=== PATIENT | male | born 1980 | race Caucasian/White ===

== ENCOUNTER → 2025-02-15 | Outpatient (CLI) | payer BC, SELFPAY ==
[2025-02-20 11:08] LABS: Beef <0.10 kU/L (Class 0); Chocolate <0.10 kU/L (Class 0); Codfish <0.10 kU/L (Class 0); Corn 0.22 kU/L (Class 0/I); Egg, Whole <0.10 kU/L (Class 0); Milk (Cow) 0.39 kU/L (Class I); Mussels <0.10 kU/L (Class 0); Peanut 0.57 kU/L (Class II); Pork <0.10 kU/L (Class 0); Salmon <0.10 kU/L (Class 0); Shrimp <0.10 kU/L (Class 0); Soybean <0.10 kU/L (Class 0); Tuna <0.10 kU/L (Class 0)
== END | disposition home or self-care (01) ==
LOC: LAB 14:10
PROVIDERS: PCP Family Medicine; Referring Provider Student in an Organized Health Care Education/Training Program; Visit Provider Student in an Organized Health Care Education/Training Program
DX: K20.0 Eosinophilic esophagitis (principal)
CPT/HCPCS: 86003; 86005

== ENCOUNTER 2025-04-11 10:09 | Day surgery (SDC) | payer BC, SELFPAY ==
[2025-04-11] VITALS (7 sets, daily range): BP systolic 100–126; BP diastolic 72–81; PULSE 68–88; RESP 16–18; TEMP 36.4–36.6; O2SAT 93–97; BMI 24.4
--- NOTE | 2025-04-11 10:33 | PCM.HP.STD ---
[facility] - General General Date of Admission: 04/11/25 Date of Service: 04/11/25 Chief Complaint: Eosinophilic esophagitis HPI Narrative FLAKO LENZ, is a 44 M who presents Chief Complaint: EOE Pt was diagnosed with EOE in his 20s and since then has had issues with swallowing. He will have to take a drink of water after each bit of food. He has episodes of needing to regurgitate his food. Last episode of regurgitation was 3 weeks ago and happened three times during that week. He notices worse symptoms when eating or drinking dairy. he is not not on a PPI due to n/v when he tried taking it. He has had good results with budesonide inhaler as needed. Last EGD was about 6 years ago. [facility] Medical History Alcohol use Difficulty swallowing Difficulty chewing Non-smoker Home Medications Medication Instructions Recorded Last Taken Type NK 04/08/25 Unknown History Allergy/AdvReac Type Severity Reaction Status Date / Time corn Allergy Severe OTHER Verified 04/11/25 10:27 Milk Containing Products Allergy Severe OTHER Verified 04/11/25 10:27 (Dairy) peanut (peanuts) Allergy Severe OTHER Verified 04/11/25 10:27 wheat Allergy Severe Other Verified 04/11/25 10:27 Sulfa (Sulfonamide Allergy Other Verified 04/11/25 10:27 Antibiotics) Surgical History History of esophagogastroduodenoscopy (EGD) History of myringotomy Hx of amputation of foot Hx of appendectomy Social History Smoking Status: Never smoker ROS Constitutional Constitutional: Denies fatigue, fever(s), poor appetite, weight gain or weight loss Gastrointestinal Gastrointestinal: Denies belching, bloating, change in bowel habits, change in stool character, chewing difficulty, coffee ground emesis, constipation, cramping, diarrhea, dyspepsia, dysphagia, early satiety, excessive flatus, fecal incontinence, heartburn, hematemesis, hematochezia, hemorrhoids, loose stools, melena, nausea, odynophagia, rectal bleeding, tenesmus, vomiting or weight changes Vital Signs Vital Signs Vital Signs: 04/11/25 10:28 04/11/25 10:28 Temperature 97.5 F L Temperature Source Temporal Pulse Rate 68 Respiratory Rate 16 Respiratory Pattern Normal Blood Pressure 126/81 H Blood Pressure Mean 96 Blood Pressure Source Monitor Blood Pressure Position Semi-Fowlers Blood Pressure Location Left Arm Pulse Ox 97 Oxygen Delivery Method Room Air Weight Weight: 175 lb Body Mass Index (BMI) 24.4 Physical Exam Const alert, oriented x3, no apparent distress and healthy appearing General Appearance: cooperative GI normal to inspection, nondistended, normoactive bowel sounds, soft to palpation, non-tender and non-distended Percussion: normal to percussion Rectal Exam: deferred Assessment & Plan Assessment/Plan (1) Eosinophilic esophagitis: PLAN: Assessment and Plan Assessment and Plan (1) Eosinophilic esophagitis: Status: Acute Plan: Flako is a 44 yo male pt here today for evaluation of EOE. Pt diagnosed with EOE in his 20s and most recently underwent EGD 6 years ago. Pt has been having worsening symptoms over the past few months with more instances of regurgitation. I have recommended starting a PPI however Nexium made him vomit so he would prefer to not take these. Pt also not wanting to go on Dupixent at this time. He has had good results with budesonide inhaler. Will prescribe Budesonide oral suspension. Will order RAST food allergy testing so he may avoid any allergens. He will undergo EGD for evaluation of his upper GI tract. -EGD -Food allergy testing -Recommend PPI -Budesonide oral suspension -Consider Dupixent pending results
[2025-04-11] MEDS: Lactated Ringers 1,000 ML 15 ML IV (10:37)
--- NOTE | 2025-04-11 10:56 | PCM.PRE.AN2 ---
ASA Classification* ASA Classification ASA Classification: 2 Assessment & Plan Anesthesia* Anesthesia Assessment Anesthesia Assessment: Discussed sedation and/or anesthesia options, risks, benefits, and alternatives with patient/parents/legal guardian/POA. Questions invited. The patient/parents/legal guardian/POA seems to understand and agrees to proceed with anesthesia plan. Reviewed the physical assessment, medical history, allergy history and patient home medications list prior to surgery/procedure/anesthetic and documented any changes. Performed airway and anesthesia risk assessments. Anesthesia Type Anesthesia Type: General and MAC History Source History Obtained from:: Patient and Chart Anesthesia Focused Assessment* Temperature: 97.5 F Pulse Rate: 68 Blood Pressure: 126/81 Respiratory Rate: 16 Pulse Ox: 97 Airway Assessment Mouth opens: >3 cm Mallampati Score: II Teeth Condition: Intact Neck Range of motion (ROM): Full ROM Labs Anesthesia Preop lab: CBC CHEMISTRY COAG Pre-Assessment Diagnosis/Proposed Procedure Planned Operative Procedure(s): EGD Anesthesia History Anesthesia History - floor cashier: Anesthesia History - floor cashier Hx Hospitalization No 04/08/25 14:26 Any Problems With Anesthesia No 04/08/25 14:26 Cholinesterase deficiency No 04/08/25 14:26 You/Your Family Experience No 04/08/25 14:26 fever (hyperthermia) with Relationship Recent Exposure to Contagious No 04/11/25 10:28 Disease Does patient have nerve No 04/08/25 14:26 stimulator Patient instructed to have device shut off --Does patient have Pacemaker No 04/11/25 10:28 or ICD? When Was Last Pacemaker Check QUESTION #4 FULL TEXT: You/Your Family Experience fever (hyperthermia) with Anesthesia Last Oral Intake Last Oral intake: Last Oral Intake NPO since 20:00 04/11/25 10:28 Meds taken in AM with sips of water? Meds patient instructed to take am of surgery PONV PONV - floor cashier: PONV - floor cashier Female No 04/08/25 14:26 HX of Motion Sickness No 04/08/25 14:26 HX of N/V After Surgery No 04/08/25 14:26 Non-Smoker No 04/08/25 14:26 Duration of Surgery greater No 04/08/25 14:26 than 60 minutes Number of Risk Factors PONV Score Height & Weight Height & Weight: Anesthesia: Height & Weight Height 5 ft 11 in 04/11/25 10:28 Weight: 79.379 kg 04/11/25 10:28 Body Mass Index (BMI) 24.4 04/11/25 10:28 Respiratory Assessment Respiratory Assessment - floor cashier: Respiratory Tract Infection Hx - floor cashier Hx Respiratory Tract Infection No 04/08/25 14:26 STOP Sleep Apnea STOP Sleep Apnea - floor cashier: STOP Sleep Apnea - floor cashier Hx Hypertension No 04/08/25 14:26 Hx Sleep Apnea No 04/08/25 14:26 CPAP BIPAP Do you snore loudly (louder No 04/08/25 14:26 than talking or can be heard Do you often feel tired/ No 04/08/25 14:26 fatigued/ sleepy during daytime? Has anyone observed you stop No 04/08/25 14:26 breathing during sleep? STOP Results Negative 04/08/25 14:26 QUESTION #5 FULL TEXT : Do you snore loudly (louder than talking or can be heard through closed doors)? Tobacco Use History Tobacco Use History - floor cashier: Tobacco Use History - floor cashier Tobacco Use Smoking Status Never smoker 04/08/25 14:26 Hx Tobacco Use No 04/08/25 14:26 Years Smoking Packs Smoked per Day Smoking Cessation Date was within the last 15 years Hx Smoking Cessation Date Hx Smoking Cessation Counseling Hematologic Medial History Hematologic Hx - floor cashier: Hematologic Medical Hx - paper final inspector Hx of Blood Transfusion No 04/08/25 14:26 Hx of Transfusion in last 3 No 04/08/25 14:26 Months Date of Last Transfusion (if within last 3 months) Ever experience any problems No 04/08/25 14:26 with transfusion(s)? Specify any problems Hx of Preganancy in last 3 N/A 04/08/25 14:26 Months Nurse Filling Out Transfusion VCHRISTIN 04/08/25 14:26 & Questions: Date: 04/08/25 04/08/25 14:26 Time: 14:27 04/08/25 14:26 Patient unable to answer at this time (ie. confused, unrespo /Reproduction History /Reproductive History - floor cashier: /Reproductive Hx- floor cashier Hx Now No 04/08/25 14:26 Gestational Age (in weeks): EDC: Hx Hx Para Hx Section SAB No 04/08/25 14:26 Active Medications Active Medications: Current Medications Generic Name Dose Route Start Last Admin Trade Name Freq PRN Reason Stop Dose Admin Lactated Ringer's 1,000 mls @ 15 mls/hr 04/11/25 10:30 04/11/25 10:37 IV 15 mls/hr .Q48H MARY Administration PFSH Medical History Alcohol use Difficulty swallowing Difficulty chewing Non-smoker Home Medications Medication Instructions Recorded Last Taken Type NK 04/08/25 Unknown History Allergy/AdvReac Type Severity Reaction Status Date / Time corn Allergy Severe OTHER Verified 04/11/25 10:27 Milk Containing Products Allergy Severe OTHER Verified 04/11/25 10:27 (Dairy) peanut (peanuts) Allergy Severe OTHER Verified 04/11/25 10:27 wheat Allergy Severe Other Verified 04/11/25 10:27 Sulfa (Sulfonamide Allergy Other Verified 04/11/25 10:27 Antibiotics) Surgical History History of esophagogastroduodenoscopy (EGD) History of myringotomy Hx of amputation of foot Hx of appendectomy Social History Smoking Status: Never smoker Review of Systems (Anesthesia) ROS Narrative System reviewed and no additional complaints, except as documented.
--- NOTE | 2025-04-11 11:30 | EGD_PTH ---
PATIENT: SHANE LENZ LOC: EN U#:[id number] AGE/SX: 44/M ROOM: RE04/11/[address]: Dr. Melquiadse Ng DO : 1980 BED: DIS: 04/11/2025 SPEC #: [id number] RECD: 04/11/25 17:53 STATUS: SHEILA REMtat #: [id number] CHEMA: 04/11/25 11:[address]: Melquiades Ng DEPT: SURGICAL PATHOLOGY RECD BY: Roland Jaime ENTERED: 04/12/25 09:58 SP TYPE: EGD BIOPSY LILLY DR: Dr. Sean George MD Tissues: A - Esophagus, NOS B - Duodenum, NOS Procedures: Surgery Specimen Level IV HEADER OPERATION: EGD with biopsies and dilation PRE-OP DIAGNOSIS: Eosinophilic esophagitis TISSUE SUBMITTED: A- Random esophagus biopsy, B- Duodenum biopsy MICROSCOPIC DIAGNOSIS A. Esophagus, random, biopsy: - Squamous mucosa with reactive changes. - 40 eosinophils per high power field. B. Duodenum, biopsy: - Michell gland hyperplasia with gastric mucin cell metaplasia, suggestive of peptic injury. - Negative for increased intraepithelial lymphocytes. MICROSCOPIC DESCRIPTION Slides are reviewed. GROSS DESCRIPTION A. Received in fixative is one container labeled with the patient's name and designated "Random esophagus biopsy." The specimen consists of multiple irregular fragments of light sheth soft tissue that in aggregate measure 0.9 x 0.4 x 0.1 cm. The specimen is totally submitted in one cassette. B. Received in fixative is one container labeled with the patient's name and designated "Duodenum biopsy." The specimen consists of two irregular fragments of light sheth soft tissue that in aggregate measure 0.3 and 0.4 cm. The specimen is totally submitted in one cassette. PA 04/12/2025 CPT:07296o4
--- NOTE | 2025-04-11 12:19 | PCM.POST.ANE ---
Anesthesia: Postop Eval I Current Vital Signs Temperature: 97.8 F Pulse Rate: 88 Blood Pressure: 106/73 Respiratory Rate: 16 Pulse Ox: 95 Oxygen Delivery Method: Room Air Assessment Airway patent: Yes Spontaneous unlabored respirations: Yes Mental status: Awake nausea: No Vomiting: No Anesthesia Complication: No Fluid Hydration Crystalloid volume administer (ml): 400 Total IV fluid infused: 400 Progress Note Anesthesia document: Postop Eval 1 completed: Yes
--- NOTE | 2025-04-11 12:44 | OP.EGD_ITS ---
Patient Name: Flako Groves Procedure Date: 04/11/2025 11:46 AM Date of : 1980 Age: 44 Procedure: Upper GI endoscopy Indications: Dysphagia Providers: Melquiades Ng DO Referring MD: Sean George Md Medicines: Monitored Anesthesia Care Patient Profile: This is a 44 year old male. Refer to note in patient chart for documentation of history and physical. Patient has symptoms of dysphagia with solids. Complications: No immediate complications. Procedure: Pre-Anesthesia Assessment: - Prior to the procedure, a History and Physical was performed, and patient medications and allergies were reviewed. The risks and benefits of the procedure and the sedation options and risks were discussed with the patient. All questions were answered and informed consent was obtained. Patient identification and proposed procedure were verified by the physician in the pre-procedure area. Mental Status Examination: normal. Airway Examination: normal oropharyngeal airway and neck mobility. Respiratory Examination: clear to auscultation. CV Examination: normal. Prophylactic Antibiotics: The patient does not require prophylactic antibiotics. Prior Anticoagulants: The patient has taken no anticoagulant or antiplatelet agents. ASA Grade Assessment: II - A patient with mild systemic disease. After reviewing the risks and benefits, the patient was deemed in satisfactory condition to undergo the procedure. The anesthesia plan was to use monitored anesthesia care (MAC). Immediately prior to administration of medications, the patient was re-assessed for adequacy to receive sedatives. The heart rate, respiratory rate, oxygen saturations, blood pressure, adequacy of pulmonary ventilation, and response to care were monitored throughout the procedure. The physical status of the patient was re-assessed after the procedure. After obtaining informed consent, the endoscope was passed under direct vision. Throughout the procedure, the patient's blood pressure, pulse, and oxygen saturations were monitored continuously. The Endoscope was introduced through the mouth, and advanced to the fourth part of the duodenum. Small bowel enteroscopy was deemed necessary. The upper GI endoscopy was accomplished without difficulty. The patient tolerated the procedure well. Scope In: 11:58:37 AM Scope Out: 12:03:44 PM Total Procedure Duration Time 0 hours 5 minutes 7 seconds Findings: Mucosal changes including ringed esophagus, feline appearance, longitudinal furrows, small-caliber esophagus, white plaques, circumferential folds, congestion (edema), crepe paper esophagus and stenosis were found in the entire esophagus. Esophageal findings were graded using the Eosinophilic Esophagitis Endoscopic Reference Score (EoE-EREFS) as: Edema Grade 1 Present (decreased clarity or absence of vascular markings), Rings Grade 2 Moderate (distinct rings that do not occlude passage of diagnostic 8-10 mm endoscope), Exudates Grade 2 Severe (scattered white lesions involving 10 percent or greater of the esophageal surface area), Furrows Grade 1 Mild (vertical lines without visible depth) and Stricture present. Biopsies were obtained from the proximal and distal esophagus with cold forceps for histology of suspected eosinophilic esophagitis. Verification of patient identification for the specimen was done. Estimated blood loss was minimal. One benign-appearing, intrinsic moderate stenosis was found 20 to 22 cm from the incisors. This stenosis measured 5 mm (inner diameter) x 6 cm (in length). The stenosis was traversed. A guidewire was placed and the scope was withdrawn. Dilation was performed with a Savary dilator with no resistance at 60 Fr. The dilation site was examined and showed moderate mucosal disruption. Estimated blood loss was minimal. The entire examined stomach was normal. Patchy mild inflammation characterized by congestion (edema), erythema and friability was found in the duodenal bulb, in the first portion of the duodenum and in the entire duodenum. Biopsies were taken with a cold forceps for histology. Verification of patient identification for the specimen was done. Estimated blood loss was minimal. Impression: - Esophageal mucosal changes secondary to eosinophilic esophagitis. - Benign-appearing esophageal stenosis. Dilated. - Normal stomach. - Chronic duodenitis. Biopsied. - Biopsies were taken with a cold forceps for evaluation of eosinophilic esophagitis. Recommendation: - Discharge patient to home. - Resume previous diet. - Continue present medications. - Await pathology results. Procedure Code(s): --- Professional --- 43998, Esophagogastroduodenoscopy, flexible, transoral; with insertion of guide wire followed by passage of dilator(s) through esophagus over guide wire 84765, 59,51, Small intestinal endoscopy, enteroscopy beyond second portion of duodenum, not including ileum; with biopsy, single or multiple CPT copyright 2021 [employer]. All rights reserved. The codes documented in this report are preliminary and upon fish processing supervisor review may be revised to meet current compliance requirements. Melquiades Ng DO 04/11/2025 12:43:36 PM This report has been signed electronically. Number of Addenda: 0 Note Initiated On: 04/11/2025 11:46 AM
--- NOTE | 2025-04-11 12:44 | OP.CCLET_ITS ---
04/11/2025 Sean George Md Re : Upper GI endoscopy procedure for Flako Groves Dear Doris This procedure was performed on March. My impressions and recommendations are as follows: Impressions : - Esophageal mucosal changes secondary to eosinophilic esophagitis. - Benign-appearing esophageal stenosis. Dilated. - Normal stomach. - Chronic duodenitis. Biopsied. - Biopsies were taken with a cold forceps for evaluation of eosinophilic esophagitis. Recommendations : - Discharge patient to home. - Resume previous diet. - Continue present medications. - Await pathology results. My findings are described in the full procedure note, which is enclosed. If I can be of further assistance, please feel free to contact me at . Sincerely, Melquiades Ng, 04/11/2025 12:43:36 PM This report has been signed electronically.
--- NOTE | 2025-04-11 12:56 | PCM.POSTANE2 ---
Anesthesia Postop Eval I Sum Postop Eval Completion status Anesthesia document: Postop Eval 1 completed: Yes Anesthesia Postop Eval I Summary Anesthesia Postop Eval I Summary: Anesthesia Postop Eval I: Assessment Summary Airway patent Yes 04/11/25 12:20 [email or web address] Spontaneous unlabored Yes 04/11/25 12:20 [email or web address] respirations Mental status Awake 04/11/25 12:20 [email or web address] nausea No 04/11/25 12:20 [email or web address] Vomiting No 04/11/25 12:20 [email or web address] Anesthesia Postop Eval I: Fluid Summary Crystalloid volume administer 400 04/11/25 12:20 [email or web address] (ml) Colloids volume administered ( ml) Blood Product volume administered (ml) Total IV fluid infused 400 04/11/25 12:20 [email or web address] Anesthesia Postop Eval I: Summary Notes Anesthesia Complication No 04/11/25 12:20 [email or web address] Anesthesia Complication Comment: Post-operative progress note Anesthesia: Postop Eval II Evaluation Mental status: Awake and Calm Pain Level: 1 nausea: No Vomiting: No Complications Anesthesia Complication: No
--- OUTSIDE RECORDS SUMMARY | 2025-04-11 21:12 | XMS RPT_ITS | CCD ---
Author Organization [facility] CliniSysd Care Team Providers Care Catering Truck Operator Name Role Phone Sean Domínguez Unavailable [phone] SEAN DOMÍNGUEZ Attending Unavailable CATRACHITA, SEAN TEJADA Primary Care Unavailable SEAN DOMÍNGUEZ Attending Unavailable CATRACHITA, SEAN TEJADA Primary Care Unavailable CATRACHITA, SEAN MALLORY Primary Care Unavailable ZIA PORTER Attending Unavail able CONNZIA Admitting Unavail able ZIA PORTER Referring Unavail able CATRACHITASEANE Primary Care Unavailable CATRACHITA, SEAN MALLORY Primary Care Unavailable JORGE A MCCONNELL Attending Unavailable CatrachitaSean Primary Care Provider JORGE A MCCONNELL Referring Unavailable CATRACHITA, SEAN BARDALESE Primary Care Unavailable JOSE KENNEY Attending Unavail able GINGER VEGAS Admitting Unavailable CATRACHITA, SEAN MALLORY Primary Care Unavailable DEEP STAPLETON Admitting Unavailable DEEP STAPLETON Attending Unavailable CATRACHITA, SEAN BARDALESE Primary Care Unavailable CATRACHITA, SEAN MALLORY Primary Care Unavailable GLENIS NORTH Attending Unavaila ble SEAN DOMÍNGUEZE Primary Care Unavailable MANUELITO ANDERSON Attending Unavailable Sean Domínguez DO Primary Care Provider [phone] Sean Domínguez DOe Unavailable Sean Domínguez DO Primary Care Provider Sean Domínguez DO Primary Care Provider Sean Domínguez DO Unavailable Sean Domínguez DO Primary Care Provider Sean Domínguez DO Primary Care Provider [phone] SELF, SELF Referring Unavailable CATRACHITA, SEAN Primary Care Unavailable OLIVAMARY Franchesca Attending Unavailable CATRACHITA, SEAN Primary Care Unavailable SELF, SELF Referring Unavailable LORRAINE LARA Attending Unavailable NAV LARA Attending Unavailable NAV LARA Referring Unavailable CATRACHITA, SEAN Primary Care Unavailable NAV LARA Admitting Unavailable NAV LARA Attending Unavailable CATRACHITA, SEAN Primary Care Unavailable SEAN DOMÍNGUEZ Primary Care Unavailable Dr. Sean Domínguez Primary Care Unavail able GEE II, TABITHA Referring Unavailable GEE II, TABITHA Attending Unavailable [place] DOSean Primary Care Provider GEE, TABITHA W Attending Unavailable CATRACHITA, SEAN TEJADA Primary Care Unavailable GEE, TABITHA W Attending Unavailable CATRACHITA, SEAN TEJADA Primary Care Unavailable CATRACHITASEAN Attending Unavailable CATRACHITA, SEAN TEJADA Primary Care Unavailable NATY SUTHERLAND Attending Unavailable CATRACHITA, SEAN TEJADA Primary Care Unavailable SEAN DOMÍNGUEZ Attending Unavailable CATRACHITA, SEAN TEJADA Primary Care Unavailable Concepcion Simpson Attending Provider Dr. Sean Domínguez MD Primary Care Provider Concepcion Simpson Referring Provider Concepcion Swan Attending Unavailable Concepcion Swan Referring Unavailable Concepcion Swan Attending Unavailable Sean Domínguez Primary Care Unavailable Catrachita, Sean Primary Care Unavailable Melquiades Ng Attending Unavailable Dr. Sean Domínguez MD Referring Provider Dr. Melquiades Ng DO Attending Provider Dr. Melquiades Ng DO Other Provider [phone] Allergies Allergy Classification Reported Allergen(s) Allergy Type Date of Onset Reaction(s) Facility (20 sources) Sulfonamides (Antibiotic); Translations: [SULFA (SULFONAMIDE ANTIBIOTICS)] Propensity to adverse reactions to drug 4 Other [facility] (15 sources) Sulfonamides (Antibiotic) Propensity to adverse reactions to drug 4 [facility] (5 sources) Sulfonamides (Antibiotic) Propensity to adverse reactions to drug 0 [facility] (1 source) corn extract Drug Allergy 5 [facility] (1 source) peanut allergenic extract Drug Allergy 5 [facility] (1 source) Sulfonamides (Antibiotic) Drug allergy (disorder) 5 [facility] (1 source) Wheat preparation Drug Allergy 5 [facility] (1 source) Milk Containing Products (Dairy) Drug allergy (disorder) 5 [facility] (1 source) corn allergenic extract Drug Allergy 5 OTHER [facility] Comment on above: HARD TIME SWALLOWING (1 source) peanut allergenic extract Drug Allergy 5 OTHER [facility] Comment on above: HARD TIME SWALLOWING (1 source) Wheat preparation Drug Allergy 5 [facility] Comment on above: HARD TIME SWALLOWING (1 source) Milk Containing Products (Dairy) Allergy to substance 5 [facility] Comment on above: HARD TIME SWALLOWING Medications Current Medications Medication Drug Class(es) Dates Sig (Normalized) Sig (Original) acetaminophen 325 mg / HYDROcodone bitartrate 5 mg oral tablet (6 sources) Opioid Agonist Start: 07-01-2023 End: 07-04-2023 take 1 tablet by mouth every four hours as needed for pain HYDROcodone-aceta minophen (NORCO) 5-325 mg per tablet Indications: Acute foot pain, right Take 1 (one) tablet by mouth every 4 (four) hours as needed for pain . 18 tablet 0 07/01/2023 07/04/2023 Active Start: 06-25-2022 End: 06-28-2022 take 1 tablet by mouth every four hours as needed for pain HYDROcodone-acetaminophen (NORCO) 5-325 mg per tablet Indications: Acute foot pain, right Take 1 (one) tablet by mouth every 4 (four) hours as needed for pain . 18 tablet 0 06/25/2022 06/28/2022 Active Start: 06-19-2021 End: 06-22-2021 take 1 tablet by mouth every four hours as needed for pain HYDROcodone-acetaminophen (NORCO) 5-325 mg per tablet Indications: Acute foot pain, right Take 1 (one) tablet by mouth every 4 (four) hours as needed for pain . 18 tablet 0 06/19/2021 06/22/2021 Active Start: 01-19-2019 End: 01-26-2019 take 1 tablet by mouth every six hours as needed for pain HYDROcodone-acetaminophen (NORCO) 5-325 mg per tablet Indications: History of amputation of right foot (HCC) Take 1 (one) tablet by mouth every 6 (six) hours as needed for pain . 28 tablet 0 01/19/2019 01/26/2019 Active [id number] 200 actuat albuterol 0.09 mg/actuat metered dose inhaler (12 sources) beta2-Adrenergic Agonist Start: 01-31-2025 End: 01-31-2026 take 2 puff(s) by inhalation every six hours as needed for wheezing albuterol 90 mcg/actuation inhaler Indications: Eosinophilic esophagitis Inhale 2 (two) puffs every 6 (six) hours as needed for wheezing . 18 g 3 01/31/2025 01/31/2026 Active Start: 08-12-2019 End: 09-11-2019 take 2 puff(s) by inhalation every six hours as needed for wheezing albuterol 90 mcg/actuation inhaler Inhale 2 (two) puffs every 6 (six) hours as needed for wheezing . 1 Inhaler 0 08/12/2019 09/11/2019 Active Start: 08-12-2019 End: 08-12-2019 take 2 puff(s) by inhalation every four to six hours as needed for cough albuterol 90 mcg/actuation inhaler Indications: Lower respiratory infection (e.g., bronchitis, pneumonia, pneumonitis, pulmonitis) Use 2 puffs every 4 to 6 hours as needed for cough, wheeze, or shortness of breath. . 1 Inhaler 0 08/12/2019 08/12/2019 Discontinued (Error) Start: 08-12-2019 albuterol inha ler 2 puff take 2 puff(s) by in halation every six hours as needed for wheezing albuterol 90 mcg/actuation inhaler Inhale 2 puffs every 6 (six) hours as needed for wheezing . 0 Active 24 hr alfuzosin hydrochloride 10 mg extended release oral tablet (2 sources) alpha-Adrenergic Boyd Start: 08-20-2024 End: 08-20-2025 take 1 tablet by mouth once daily alfuzosin (UroxatraL) 10 mg 24 hr tablet Indications: BPH associated with nocturia Take 1 tablet (10 mg) by mouth once daily. Do not crush, chew, or split. 30 tablet 11 08/20/2024 08/20/2025 Active amoxicillin 500 mg oral capsule (2 sources) Penicillin-class Antibacterial Start: 08-12-2019 End: 08-22-2019 take 2 capsules by mouth twice daily amoxicillin (AMOXIL) 500 MG capsule Take 2 (two) capsules (1,000 mg total) by mouth 2 (two) times a day for 10 days . 40 capsule 0 08/12/2019 08/22/2019 Active amoxicillin 875 mg / clavulanate 125 mg oral tablet (7 sources) Penicillin-class Antibacterial Start: 01-07-2023 End: 01-17-2023 take 1 tablet by mouth every twelve hours Amoxicillin-clavu lanate 875-125 MG tablet Take 1 tablet by mouth every 12 hours for 10 days. 20 tablet 0 01/07/2023 01/17/2023 Active End: 11-21-2019 take 1 tablet by mouth twice daily amoxicillin-clavulanate (AUGMENTIN) 875-125 mg per tablet Take 1 tablet by mouth 2 (two) times a day . 0 11/21/2019 Discontinued (Therapy completed) chlorzoxazone 500 mg oral tablet (1 source) Muscle Relaxant Start: 10-22-2021 take 1 tablet by mouth four times daily as needed for muscle spasms chlorzoxazone 500 MG tablet Take 1 tablet by mouth 4 times daily as needed for Muscle spasms. 20 tablet 0 10/22/2021 Active codeine phosphate 2 mg/ml / guaiFENesin 20 mg/ml oral solution (3 sources) Opioid Agonist Start: 08-02-2019 End: 08-12-2019 guaiFENesin-codeine (TUSSI-ORGANIDIN NR) 10-100 mg/5 mL syrup Indications: Acute lower respiratory tract infection Take 5 mL by mouth 3 (three) times a day as needed for cough (Days supply per fill: 10) . 150 mL 0 08/02/2019 08/12/2019 Active dexamethasone 4 mg oral tablet (3 sources) Corticosteroid Start: 08-12-2019 End: 08-14-2019 take 1 tablet by mouth once daily at breakfast dexAMETHasone (DECADRON) 4 MG tablet Take 1 (one) tablet (4 mg total) by mouth daily with breakfast for 2 days . 2 tablet 0 08/12/2019 08/14/2019 Active Start: 08-12-2019 End: 08-12-2019 dexamethasone (DECADRON) inj ection 10 mg 120 actuat fluticasone propionate 0.22 mg/actuat metered dose inhaler (8 sources) Corticosteroid Start: 02-13-2020 End: 06-25-2022 take 2 puff(s) by mouth twice daily fluticasone propionate (FLOVENT HFA) 220 mcg/actuation inhaler Inhale 2 (two) puffs 2 (two) times a day Rinse mouth after each use . 1 Inhaler 12 02/13/2020 06/25/2022 Discontinued Start: 08-12-2019 End: 08-12-2019 take 2 puff(s) by mouth twice daily fluticasone propionate (Flovent HFA) 110 mcg/actuation inhaler Indications: Lower respiratory infection (e.g., bronchitis, pneumonia, pneumonitis, pulmonitis) Inhale 2 (two) puffs 2 (two) times a day Rinse mouth after each use . 1 Inhaler 0 08/12/2019 08/12/2019 Discontinued (Error) ibuprofen 800 mg oral tablet (1 source) Nonsteroidal Anti-inflammatory Drug Start: 10-22-2021 End: 10-27-2021 take 1 tablet by mouth three times daily at mealtime as needed for pain ibuprofen 800 MG tablet Take 1 tablet by mouth 3 times daily as needed for Moderate Pain for up to 5 days. Take with food 15 tablet 0 10/22/2021 10/27/2021 Active methylPREDNISolone (1 source) Corticosteroid Start: 07-23-2024 End: 07-29-2024 methylPREDNISolone (MEDROL DOSEPACK) 4 mg tablet Indications: Acute bilateral low back pain without sciatica Follow package directions . 21 tablet 3 07/23/2024 07/29/2024 Active [place] (Nk) (1 source) Start: 04-08-2025 [place] (Nk) Active April 08, 2025 12:00am Completed/Discontinued Medications Medication Drug Class(es) Dates Sig (Normalized) Sig (Original) acetaminophen 500 mg oral tablet (7 sources) End: 11-21-2019 take 1 tablet by mouth every six hours as needed acetaminophen (TYLENOL) 500 MG tablet Take 500 mg by mouth every 6 (six) hours as needed for pain . 0 11/21/2019 Discontinued (Therapy completed) acetaminophen 325 mg / oxyCODONE hydrochloride 5 mg oral tablet (2 sources) Opioid Agonist Start: 01-31-2023 End: 02-01-2023 oxyCODONE-acetamino phen (PERCOCET) 5-325 MG per tablet 1 Each Start: 01-31-2023 End: 02-05-2023 take 1 tablet by mouth every six hours as needed oxyCODONE-acetaminophen 5-325 MG per tablet Indications: Acute appendicitis Take 1 tablet by mouth every 6 hours as needed for up to 5 days. 20 tablet 0 01/31/2023 02/05/2023 Active albuterol 0.833 mg/ml / ipratropium bromide 0.167 mg/ml inhalant solution (4 sources) Anticholinergic, beta2-Adrenergic Agonist Start: 08-12-2019 End: 08-12-2019 ipratropium-albuterol (DUO-NEB) 0.5-2.5 mg/3 ml nebulizer solution 3 mL Start: 08-02-2019 End: 08-02-2019 ipratropium-albuterol (DUO-N EB) 0.5-2.5 mg/3 ml nebulizer solution 3 mL Start: 08-02-2019 End: 08-02-2019 ipratropium-albuterol (DUO-N EB) 0.5-2.5 mg/3 ml nebulizer solution 3 mL albuterol 90 mcg/actuation inhaler (4 sources) Start: 08-12-2019 End: 11-21-2019 take 2 puff(s) by inhalation every six hours as needed for wheezing albuterol 90 mcg/actuation inhaler Inhale 2 (two) puffs every 6 (six) hours as needed for wheezing . 1 Inhaler 0 08/12/2019 11/21/2019 Discontinued (Therapy completed) Start: 08-12-2019 take 2 puff(s) by in halation every six hours as needed for wheezing albuterol 90 mcg/actuation inhaler Inhale 2 (two) puffs every 6 (six) hours as needed for wheezing . 1 Inhaler 0 08/12/2019 Active End: 11-21-2019 take 2 puff(s) by inhalation every six hours as needed for wheezing albuterol 90 mcg/actuation inhaler Inhale 2 puffs every 6 (six) hours as needed for wheezing . 0 11/21/2019 Discontinued (Therapy completed) take 2 puff(s) by in halation every six hours as needed for wheezing albuterol 90 mcg/actuation inhaler Inhale 2 puffs every 6 (six) hours as needed for wheezing . 0 Active ALPRAZolam 0.5 mg oral tablet (6 sources) Benzodiazepine End: 11-21-2019 take 1 tablet by mouth twice daily as needed ALPRAZolam (XANAX) 0.5 MG tablet Take 0.5 mg by mouth 2 (two) times a day as needed . 0 11/21/2019 Discontinued (Therapy completed) Ascorbic Acid (9 sources) Vitamin C End: 07-23-2024 ascorbic acid (VITAMIN C ORAL) Take by mouth once daily . 07/23/2024 Discontinued ascorbic acid (V ITAMIN C ORAL) Take by mouth once daily . 0 Active aspirin 81 mg chewable tablet (2 sources) Platelet Aggregation Inhibitor, Nonsteroidal Anti-inflammatory Drug Start: 08-12-2019 End: 08-12-2019 aspirin chewable tablet 324 mg Start: 08-12-2019 End: 08-12-2019 aspirin chewable tablet 324 mg Azithromycin (11 sources) Macrolide Antimicrobial Start: 08-12-2019 End: 11-21-2019 take 6 tablets by mouth once daily azithromycin (Z-NARDA) 5 day dose pack Take by mouth daily . 6 tablet 0 08/12/2019 11/21/2019 Discontinued (Therapy completed) Start: 08-12-2019 take 6 tablets by [facility] once daily azithromycin (Z-NARDA) 5 day dose pack Take by mouth daily . 6 tablet 0 08/12/2019 Active Start: 08-12-2019 End: 08-12-2019 azithromycin (ZITHROMAX) tab let 500 mg Start: 08-02-2019 End: 11-21-2019 azithromycin (Zithromax Z-Pa k) 250 MG tablet Indications: Acute lower respiratory tract infection Take 2 tablets on day one and 1 tablet on days 2 through 5. . 6 tablet 0 08/02/2019 11/21/2019 Discontinued (Therapy completed) Budesonide 2 mg/10 mL suspension in packet (3 sources) Start: 02-15-2025 End: 04-08-2025 take 1 mL by mouth twice daily in the morning Budesonide 2 mg/10 mL suspension in packet Discontinued 10 mL PO TWICE A DAY February 15, 2025 12:00am April 08, 2025 2:21pm administer in the morning and evening Start: 02-15-2025 take 1 mL by mouth t wice daily in the morning Budesonide 2 mg/10 mL suspension in packet Active 10 mL PO TWICE A DAY February 15, 2025 12:00am administer in the morning and evening calcium chloride 0.0014 meq/ml / potassium chloride 0.004 meq/ml / sodium chloride 0.103 meq/ml / sodium lactate 0.028 meq/ml injectable solution (1 source) Start: 01-25-2020 End: 01-28-2020 lactated [place] infusion cefoTETAN (CEFOTAN) 1 g in sodium chloride 0.9% (MB PLUS) 50 mL (total volume) IVPB (1 source) Start: 01-31-2023 End: 01-31-2023 cefoTETAN (CEFOTAN) 1 g in sodium chloride 0.9% (MB PLUS) 50 mL (total volume) IVPB cefTRIAXone 1000 mg injection (1 source) Cephalosporin Antibacterial Start: 08-12-2019 End: 08-12-2019 cefTRIAXone (ROCEPHIN) IVPB 1 g (premix) cephalexin 500 mg oral capsule (1 source) Cephalosporin Antibacterial Start: 07-27-2018 End: 08-02-2018 take 1 capsule by mouth four times daily cephALEXin (KEFLEX) 500 MG capsule TAKE 1 CAPSULE BY MOUTH 4 TIMES A DAY UNTIL GONE 0 07/27/2018 08/02/2018 Discontinued doxycycline hyclate 100 mg oral tablet (1 source) Tetracycline-clas s Drug Start: 08-12-2019 End: 08-12-2019 take 1 tablet by mouth twice daily doxycycline hyclate (VIBRA-TABS) 100 MG tablet Indications: Lower respiratory infection (e.g., bronchitis, pneumonia, pneumonitis, pulmonitis) , Other acute sinusitis, recurrence not specified Take 1 (one) tablet (100 mg total) by mouth 2 (two) times a day for 10 days . 20 tablet 0 08/12/2019 08/12/2019 Discontinued (Error) 2 ml dupilumab 150 mg/ml prefilled syringe (6 sources) Interleukin-4 Receptor alpha Antagonist Start: 10-06-2022 End: 07-01-2023 dupilumab (Dupixent Syringe) 300 mg/2 mL Syrg Inject 2 mL (300 mg total) under the skin every 7 days . 2 mL 11 10/06/2022 07/01/2023 Discontinued esomeprazole 20 mg delayed release oral capsule (4 sources) Proton Pump Inhibitor Start: 02-13-2020 End: 06-19-2021 take 2 capsules by mouth once daily before breakfast esomeprazole (NexIUM 24HR) 20 MG capsule Take 2 (two) capsules (40 mg total) by mouth every morning before breakfast . 60 capsule 11 02/13/2020 06/19/2021 Discontinued 12 hr guaiFENesin 600 mg extended release oral tablet (1 source) Start: 08-12-2019 End: 08-12-2019 guaiFENesin (MUCINEX) 600 mg 12 hr tablet Indications: Lower respiratory infection (e.g., bronchitis, pneumonia, pneumonitis, pulmonitis) , Other acute sinusitis, recurrence not specified Use 1 to 2 tablets every 12 hours as needed, expectorant (helps to thin secretions). Drink plenty of water. . 40 tablet 0 08/12/2019 08/12/2019 Discontinued (Error) iohexol (OMNIPAQUE) 350 MG/ML injection 75 mL (1 source) Start: 01-31-2023 End: 01-31-2023 iohexol (OMNIPAQUE) 350 MG/ML injection 75 mL levoFLOXacin 500 mg oral tablet (2 sources) Quinolone Antimicrobial Start: 08-02-2018 End: 01-19-2019 take 1 tablet by mouth once daily levoFLOXacin (LEVAQUIN) 500 MG tablet Indications: Paronychia of great toe of left foot Take 1 (one) tablet (500 mg total) by mouth daily . 7 tablet 1 08/02/2018 01/19/2019 Discontinued loratadine 10 mg oral tablet (5 sources) End: 07-23-2024 take 1 tablet by mouth once daily loratadine (CLARITIN) 10 mg tablet Take 1 (one) tablet (10 mg total) by mouth daily . 07/23/2024 Discontinued 50 ml magnesium sulfate 40 mg/ml injection (1 source) Start: 08-12-2019 End: 08-12-2019 magnesium sulfate 2 g in sterile water (SW) 50 mL IVPB montelukast 10 mg oral tablet (4 sources) Leukotriene Receptor Antagonist Start: 08-12-2019 End: 11-21-2019 take 1 tablet by mouth once daily montelukast (SINGULAIR) 10 mg tablet Take 1 (one) tablet (10 mg total) by mouth nightly for 5 doses . 5 tablet 0 08/12/2019 11/21/2019 Discontinued (Therapy completed) 1 ml morphine sulfate 2 mg/ml cartridge (1 source) Opioid Agonist Start: 01-31-2023 End: 02-01-2023 take 2 mg intravenously every two hours as needed Morphine (PF) injection 2 mg 2 ml ondansetron 2 mg/ml injection (1 source) Serotonin-3 Receptor Antagonist Start: 01-31-2023 End: 02-01-2023 take 4 mg intravenously every four hours as needed Ondansetron 4mg/2ml (ZOFRAN) injection 4 mg microencapsulated potassium chloride 20 meq extended release oral tablet (1 source) Start: 08-12-2019 End: 08-12-2019 potassium chloride SA (K-DUR,KLOR-CON) CR tablet 60 mEq predniSONE 10 mg oral tablet (10 sources) Start: 01-07-2023 End: 01-31-2023 take 3 tablets by mouth once daily predniSONE 10 MG tablet Take 3 tabs (30mg) PO every day for 5 days 15 tablet 0 01/07/2023 01/31/2023 Discontinued (Therapy completed) Start: 08-12-2019 End: 08-12-2019 predniSONE (DELTASONE) 10 MG tablet Indications: Lower respiratory infection (e.g., bronchitis, pneumonia, pneumonitis, pulmonitis) , Other acute sinusitis, recurrence not specified Taper 2 days each dose, 40, 30, 20 , 10 mg . 20 tablet 0 08/12/2019 08/12/2019 Discontinued (Error) Start: 08-02-2019 End: 11-21-2019 predniSONE (DELTASONE) 20 MG tablet Indications: Acute lower respiratory tract infection Take 2 tablets daily for 5 days. . 10 tablet 0 08/02/2019 11/21/2019 Discontinued (Therapy completed) 1000 ml sodium chloride 9 mg /ml injection (5 sources) Start: 01-31-2023 End: 02-01-2023 Sodium chloride 0.9% IV solution Start: 01-31-2023 End: 01-31-2023 Sodium chloride 0.9% IV solu tion 75 mL Start: 08-12-2019 End: 08-12-2019 sodium chloride 0.9% (NS) Start: 08-12-2019 End: 08-12-2019 sodium chloride 0.9% (NS) radha kayla 2,000 mL valACYclovir 500 mg oral tablet (10 sources) Herpesvirus Nucleoside Analog DNA Polymerase Inhibitor, Herpes Simplex Virus Nucleoside Analog DNA Polymerase Inhibitor, Herpes Zoster Virus Nucleoside Analog DNA Polymerase Inhibitor Start: 02-15-2025 End: 04-08-2025 take 1 tablet by mouth once daily Valacyclovir (Valtrex) 500 mg tablet Discontinued 500 mg PO daily February 15, 2025 12:00am April 08, 2025 2:21pm Start: 07-23-2024 End: 07-23-2025 take 1 tablet by mouth twice daily valACYclovir (VALTREX) 1000 MG tablet Indications: Hx of cold sores Take 1 (one) tablet (1,000 mg total) by mouth 2 (two) times a day . 2 tablet 4 07/23/2024 07/23/2025 Active Start: 07-23-2024 End: 07-23-2025 take 1 tablet by mouth twice daily valACYclovir (Valtrex) 1 gram tablet Take 1 tablet (1,000 mg) by mouth twice a day. 07/23/2024 07/23/2025 Active Zinc (9 sources) End: 07-23-2024 ZINC ORAL Take by mouth once daily . 07/23/2024 Discontinued ZINC ORAL Take b y mouth once daily . 0 Active Problems Active Problems Problem Classification Problem Date Documented Date Episodic/Chronic Abdominal pain (3 sources) Right lower quadrant pain; Translations: [Right lower quadrant pain] Onset: 3 Episodic Appendicitis and other appendiceal conditions (7 sources) Appendicitis; Translations: [Unspecified appendicitis] Onset: 3 01-31-2023 Episodic Conditions associated with dizziness or vertigo (1 source) Dizziness; Translations: [Dizziness] Episodic Esophageal disorders (16 sources) Eosinophilic esophagitis; Translations: [Eosinophilic esophagitis] Onset: 5 Chronic Hyperplasia of prostate (5 sources) Nocturia due to benign prostatic hypertrophy; Translations: [Benign prostatic hyperplasia with lower urinary tract symptoms] Onset: 4 08-20-2024 Chronic Nonspecific chest pain (1 source) Chest discomfort; Translations: [Chest pressure] Episodic Other bone disease and musculoskeletal deformities (4 sources) Acquired absence of right foot; Translations: [Acquired absence of right foot] Onset: 9 Chronic Other bone disease and musculoskeletal deformities (20 sources) History of amputation of right foot; Translations: [Acquired absence of right foot] Onset: 9 01-19-2019 Chronic Other connective tissue disease (5 sources) Foot pain; Translations: [Pain in right foot] Episodic Other infections; including parasitic (1 source) H/O: viral illness; Translations: [Personal history of other infectious and parasitic diseases] 07-23-2024 Episodic Other lower respiratory disease (1 source) Lower respiratory tract infection; Translations: [Lower respiratory infection (e.g., bronchitis, pneumonia, pneumonitis, pulmonitis)] Episodic Other lower respiratory disease (1 source) Cough; Translations: [Cough] Episodic Other screening for suspected conditions (not mental disorders or infectious disease) (1 source) Electrocardiogram abnormal; Translations: [Abnormal EKG] Episodic Other upper respiratory infections (3 sources) Acute sinusitis; Translations: [Upper respiratory infection] Episodic Otitis media and related conditions (2 sources) Acute suppurative otitis media without spontaneous rupture of ear drum; Translations: [Acute suppurative otitis media without spontaneous rupture of ear drum, left ear] Episodic Spondylosis; intervertebral disc disorders; other back problems (2 sources) Acute low back pain; Translations: [Acute bilateral low back pain without sciatica] Episodic Unclassified (12 sources) History of amputation of right foot; Translations: [History of amputation of right foot (HCC)] Onset: 9 01-19-2019 Unclassified (2 sources) Ear Pain; Translations: [Ear Pain] Onset: 3 Unclassified (2 sources) Other; Translations: [Other] Onset: 2 Unclassified (1 source) Low back pain, unspecified; Translations: [Low back pain, unspecified] Onset: 4 Past or Other Problems Problem Classification Problem Date Documented Date Episodic/Chronic Genitourinary symptoms and ill-defined conditions (18 sources) Increased frequency of urination; Translations: [Frequency of micturition] Onset: 4 07-23-2024 Episodic Other gastrointestinal disorders (20 sources) Dysphagia; Translations: [Dysphagia, pharyngoesophageal phase] Onset: 0 11-22-2019 Episodic Other gastrointestinal disorders (20 sources) Heartburn; Translations: [Heartburn] Onset: 0 11-22-2019 Episodic Other gastrointestinal disorders (20 sources) Excessive belching; Translations: [Eructation] Onset: 0 11-22-2019 Episodic Other infections; including parasitic (2 sources) Personal history of other infectious and parasitic diseases; Translations: [Personal history of other infectious and parasitic diseases] Onset: 4 Episodic Other lower respiratory disease (2 sources) Dyspnea; Translations: [Shortness of breath] Episodic Other lower respiratory disease (1 source) Wheezing; Translations: [Wheezing] Episodic Other lower respiratory disease (1 source) Acute lower respiratory tract infection; Translations: [Acute lower respiratory tract infection] Episodic Other non-traumatic joint disorders (4 sources) Ankle pain; Translations: [Pain in unspecified ankle and joints of unspecified foot] Onset: 4 11-05-2021 Episodic Pneumonia (except that caused by tuberculosis or sexually transmitted disease) (1 source) Infective pneumonia; Translations: [Pneumonia due to infectious organism, unspecified laterality, unspecified part of lung] Episodic Skin and subcutaneous tissue infections (3 sources) Paronychia of toe; Translations: [Cellulitis of left toe] Onset: 8 Episodic Unclassified (1 source) Low back pain, unspecified; Translations: [Low back pain, unspecified] Onset: 4 Results Test Name Value Interpretation Reference Range Facil ity [id number] 02-20-2025 BEEF <0.10 Normal Class 0 [facility] Comment on above: Performed By: #### L 5500.0550 #### [facility] [address] [place], [address] CHOCOLATE <0.10 Normal Class 0 [facility] Comment on above: Performed By: #### L 5500.0550 #### [facility] [address] [place], [place], [id number] CODFISH <0.10 Normal Class 0 [facility] Comment on above: Performed By: #### L 5500.0550 #### [facility] [address] [place], [place], [id number] COMMENT Comment Normal . [facility] Comment on above: Result Comment: Ian flor of Specific IgE Class Description of Class ----- < 0.10 0 Negative 0.10 - 0.31 0/I Equivocal/Low 0.32 - 0.55 I Low 0.56 - 1.40 II Moderate 1.41 - 3.90 III High 3.91 - 19.00 IV Very High 19.01 - 100.00 V Very High >100.00 Very High Performed By: #### L 5500.0550 #### [facility] [address] [place], [place], [id number] CORN 0.22 kU/L Abnormal Class 0/I [facility] Comment on above: Performed By: #### L 5500.0550 #### [facility] [address] [place], [place], [id number] EGG, WHOLE <0.10 Normal Class 0 [facility] Comment on above: Result Comment: Perf ormed at: - [facility] [address] [id number] Sales Inspector: Bud Pringle MD, Phone: [phone] Performed By: #### L 5500.0550 #### [facility] [address] [place], [place], [id number] MILK (COW) 0.39 kU/L Abnormal Class I [facility] Comment on above: Performed By: #### L 5500.0550 #### [facility] [address] [place], [address] MUSSELS <0.10 Normal Class 0 [facility] Comment on above: Performed By: #### L 5500.0550 #### [facility] [address] [place], [address] PEANUT 0.57 kU/L Abnormal Class II [facility] Comment on above: Performed By: #### L [id number] #### [facility] [address] [place], [address] PORK <0.10 Normal Class 0 [facility] Comment on above: Performed By: #### L [id number] #### [facility] [address] [place], [address] SALMON <0.10 Normal Class 0 [facility] Comment on above: Performed By: #### L [id number] #### [facility] [address] [place], [address] SHRIMP <0.10 Normal Class 0 [facility] Comment on above: Performed By: #### L 5500.0550 #### [facility] [address] [place], [address] SOYBEAN <0.10 Normal Class 0 [facility] Comment on above: Performed By: #### L 5500.0550 #### [facility] [address] [place], [address] TUNA <0.10 Normal Class 0 [facility] Comment on above: Performed By: #### L 5500.0550 #### [facility] [address] [place], [address] WHEAT 0.20 kU/L Abnormal Class 0/I [facility] Comment on above: Performed By: #### L 5500.0550 #### [facility] [address] [place], [address] Gastroenterology Visit Repor ton 02-15-2025 Gastroenterology Visit Report [facility] [address] [place] [address] OFFICE VISIT Date of Service: 02/15/25 MR#: [id number] Acct: [id number] Name: SHANE LENZ Rep #: [id number] : 1980 Provider: EBONY Pfeiffer Age/Sex: 44/M Location: [facility] Status: Signed Intake Intake Visit Reasons: EOSINOPHILIC ESOPHAGITIS Chief Complaint: EOE Allergies Sulfa (Sulfonamide Antibiotics) Allergy (Verified 02/15/25 13:31) Other Medications ???Medication ???Instructions ???Recorded ???Confirmed ???Type budesonide 2 mg/10 mL oral 10 ml PO BID #100 mL 02/15/25 05 0 Rx suspension in packet valacyclovir 500 mg tablet 500 mg PO QDAY 02/15/25 02/15/25 H istory (Valtrex) Nurse's Note: Patient is here has a hard time swallowing food, he sees a doctor at [facility] and they have diagnosed him EOE. He feels like it is a dairy issue as well. HPI HPI Chief Complaint: EOE Details: SHANE LENZ, is a 44 M who presents to the office today for establishment with [facility]. Pt was diagnosed with EOE in his 20s and since then has had issues with swallowing. He will have to take a drink of water after each bit of food. He has episodes of needing to regurgitate his food. Last episode of regurgitation was 3 weeks ago and happened three times during that week. He notices worse symptoms when eating or drinking dairy. he is not not on a PPI due to n/v when he tried taking it. He has had good results with budesonide inhaler as needed. Last EGD was about 6 years ago. ROS Const Constitutional: No anorexia, fatigue, fever(s), weight change or sleep problems Eyes Eyes: No change in vision ENT ENT: Positive for difficulty swallowing; No abnormal hearing, mouth lesions, tongue swelling or throat swelling Resp Respiratory: No cough or shortness of breath Cardio Cardiology: No chest pain at rest, chest pain with exertion, shortness of breath or dyspnea on exertion Gastro GI: Positive for difficulty swallowing Genitourinary Male: No difficulty urinating or burning urination Musc Musculoskeletal: No joint pain, joint swelling, muscle weakness or decreased muscle mass Skin Skin: No hair loss in leg, yellowing of the eye, itchy eyes, rash, skin ulcer or skin swelling Neuro Neurology: No abnormal hearing, abnormal movements, confusion, unsteady gait/balance or memory loss Psych Psychiatric: No anxiety, No confusion and No memory loss Endo Endocrine: No fatigue or weight change Aller/Imm Allergy/Immunologic: No itchy eyes, throat swelling or tongue swelling Giovanni/Lymp Hematologic/Lymphati c: No easy bleeding, easy bruising or enlarged lymph nodes Exam Const General: cooperative and healthy appearing Orientation: alert Resp Effort Inspection: normal respiratory effort Cardio Rate: regular rate Rhythm: regular rhythm GI Inspection: normal to inspection Auscultation: normal bowel sounds Palpation: soft and nontender Assessment and Plan Assessment and Plan (1) Eosinophilic esophagitis: Status: Acute Plan: Shane is a 44 yo male pt here today for evaluation of EOE. Pt diagnosed with EOE in his 20s and most recently underwent EGD 6 years ago. Pt has been having worsening symptoms over the past few months with more instances of regurgitation. I have recommended starting a PPI however Nexium made him vomit so he would prefer to not take these. Pt also not wanting to go on Dupixent at this time. He has had good results with budesonide inhaler. Will prescribe Budesonide oral suspension. Will order RAST food allergy testing so he may avoid any allergens. He will undergo EGD for evaluation of his upper GI tract. -EGD -Food allergy testing -Recommend PPI -Budesonide oral suspension -Consider Dupixent pending results Orders: Orders Allergen, Food Profile 14 Today K20.0 - Eosinophilic esophagitis Medications: New budesonide administer in the morning and evening 10 mL PO BID 100 mL 1RF Coding Level of Care Code Off vis,new,level 4 Diagnoses Eosinophilic esophagitis K20.0 02/15/25 1438 Date Concepcion BECK Cosigner Signature: Date (if applicable) CC: Normal [facility] - Miscellaneous t estsOrdered By: Concepcion Swan on 02-15-2025 Service comment (Unsp spec) [Interp] Comment . [facility] Comment on above: Levels of Specific I gE Class Description of Class ----- < 0.10 0 Negative 0.10 - 0.31 0/I Equivocal/Low 0.32 - 0.55 I Low 0.56 - 1.40 II Moderate 1.41 - 3.90 III High 3.91 - 19.00 IV Very High 19.01 - 100.00 V Very High >100.00 Very High Serum beef IgE antibody assa y (units/volume)Ordered By: Concepcion Swan on 02-15-2025 Beef IgE Qn (S) <0.10 kU/L Class 0 [facility] Serum codfish IgE antibody a ssay (units/volume)Ordered By: Concepcion Swan on 02-15-2025 Codfish IgE Qn (S) <0.10 kU/L Class 0 [facility] Serum corn IgE antibody assa y (units/volume)Ordered By: Concepcion Swan on 02-15-2025 [place] IgE Qn (S) 0.22 kU/L High Class 0/I [facility] Serum cow milk IgE antibody assay (units/volume)Ordered By: Concepcion Swan on 02-15-2025 Cow milk IgE Qn (S) 0.39 kU/L High Class I [facility] Serum peanut IgE antibody as say (units/volume)Ordered By: Concepcion Swan on 02-15-2025 Peanut IgE Qn (S) 0.57 kU/L High Class II [facility] Serum pork IgE antibody assa y (units/volume)Ordered By: Concepcion Swan on 02-15-2025 Pork IgE Qn (S) <0.10 kU/L Class 0 [facility] Serum salmon IgE antibody as say (units/volume)Ordered By: Concepcion Swan on 02-15-2025 Molt IgE Qn (S) <0.10 kU/L Class 0 [facility] Serum soybean IgE antibody a ssay (units/volume)Ordered By: Concepcion Swan on 02-15-2025 Soybean IgE Qn (S) <0.10 kU/L Class 0 [facility] Serum tuna IgE antibody assa y (units/volume)Ordered By: Concepcion Swan on 02-15-2025 Tuna IgE Qn (S) <0.10 kU/L Class 0 [facility] Serum wheat IgE antibody ass ay (units/volume)Ordered By: Concepcion Swan on 02-15-2025 Wheat IgE Qn (S) 0.20 kU/L High Class 0/I [facility] Serum whole egg IgE antibody assay (units/volume)Ordered By: Concepcion Swan on 02-15-2025 Whole Egg IgE Qn (S) <0.10 kU/L Class 0 [facility] Comment on above: Performed at: [address] [id number] Director: Bud Pringle MD, Phone: [phone] CBC (INCLUDES DIFF/PLT)on Basophils (Bld) [#/Vol] 0.078 10*3/uL Normal 0-200 [facility] Comment on above: Performed By: #### 6 399 #### [facility] [address], [address] [place], [place] [id number] Night Nurse: Seven Brennan MD Basophils/100 WBC (Bld) 0.8 % Normal [facility] Comment on above: Performed By: #### 6 399 #### [facility] [address], [address] [place], [place] [phone] Night Nurse: Seven Brennan MD Eosinophils (Bld) [#/Vol] 1.176 10*3/uL High 15-500 [facility] Comment on above: Performed By: #### 6 399 #### [facility] of [place] [address] Night Nurse: Seven Brennan MD Eosinophils/100 WBC (Bld) 12.0 % Normal [facility] Comment on above: Performed By: #### 6 399 #### [facility] [place] [address] Night Nurse: Seven Brennan MD Erythrocyte distribution width (RBC) [Ratio] 12.6 % Normal 11.0-15.0 [facility] Comment on above: Performed By: #### 6 399 #### [facility] [place] [address] Night Nurse: Seven Brennan MD Hematocrit (Bld) [Volume fraction] 44.3 % Normal 38.5-50.0 [facility] Comment on above: Performed By: #### 6 399 #### [facility] [place] [address] Night Nurse: Seven Brennan MD Hemoglobin (Bld) [Mass/Vol] 14.6 g/dL Normal 13.2-17.1 [facility] Comment on above: Performed By: #### 6 399 #### [facility] [place] [address] Night Nurse: Seven Brennan MD Lymphocytes (Bld) [#/Vol] 1.764 10*3/uL Normal 850-3900 [facility] Comment on above: Performed By: #### 6 399 #### [facility] [place] [address] Night Nurse: Seven Brennan MD Lymphocytes/100 WBC (Bld) 18.0 % Normal [facility] Comment on above: Performed By: #### 6 399 #### [facility] [place] [address] Night Nurse: Seven Brennan MD MCH (RBC) [Entitic mass] 31.3 pg Normal 27.0-33.0 [facility] Comment on above: Performed By: #### 6 399 #### [facility] [place] [address] Night Nurse: Seven Brennan MD MCHC (RBC) [Mass/Vol] 33.0 g/dL Normal 32.0-36.0 [facility] Comment on above: Result Comment: For adults, a slight decrease in the calculated MCHC value (in the range of 30 to 32 g/dL) is most likely not clinically significant; however, it should be interpreted with caution in correlation with other red cell parameters and the patient's clinical condition. Performed By: #### 6 399 #### [facility] [place] [address] Night Nurse: Seven Brennan MD MCV (RBC) [Entitic vol] 95.1 fL Normal 80.0-100.0 [facility] Comment on above: Performed By: #### 6 399 #### [facility] [place] [address] Night Nurse: Seven Brennan MD Monocytes (Bld) [#/Vol] 0.568 10*3/uL Normal 200-950 [facility] Comment on above: Performed By: #### 6 399 #### [facility] [place] [address] Night Nurse: Seven Brennan MD Monocytes/100 WBC (Bld) 5.8 % Normal [facility] Comment on above: Performed By: #### 6 399 #### [facility] [place] [address] Night Nurse: Seven Brennan MD Neutrophils (Bld) [#/Vol] 6.213 10*3/uL Normal 0438-2882 [facility] Comment on above: Performed By: #### 6 399 #### [facility] [place] [address] Night Nurse: Seven Brennan MD Neutrophils/100 WBC (Bld) 63.4 % Normal [facility] Comment on above: Performed By: #### 6 399 #### [facility] of [address], [address] [place] [address] Night Nurse: Seven Brennan MD Platelet mean volume (Bld) [Entitic vol] 11.7 fL Normal 7.5-12.5 [facility] Comment on above: Performed By: #### 6 399 #### [facility] of [address], [address] [place] [address] Night Nurse: Seven Brennan MD Platelets (Bld) [#/Vol] 320 10*3/uL Normal 140-400 [facility] Comment on above: Performed By: #### 6 399 #### [facility] [place] [address] Night Nurse: Seven Brennan MD RBC (Bld) [#/Vol] 4.66 10*6/uL Normal 4.20-5.80 [facility] Comment on above: Performed By: #### 6 399 #### [facility] of [address], [address] [place] [address] Night Nurse: Seven Brennan MD WBC (Bld) [#/Vol] 9.8 10*3/uL Normal 3.8-10.8 [facility] Comment on above: Performed By: #### 6 399 #### [facility] [place] [address] Night Nurse: Seven Brennan MD COMPREHENSIVE METABOLIC PANE L W/ANION GAPon 02-01-2025 Albumin [Mass/Vol] 4.7 g/dL Normal 3.6-5.1 [facility] Comment on above: Performed By: #### 1 9162, 95354 #### [facility] [place] [address] Night Nurse: Seven Brennan MD ALP [Catalytic activity/Vol] 60 U/L Normal 36-130 [facility] Comment on above: Performed By: #### 1 4852, 58931 #### [facility] [place] [address] Night Nurse: Seven Brennan MD ALT [Catalytic activity/Vol] 14 U/L Normal 9-46 [facility] Comment on above: Performed By: #### 1 485, 23701 #### [facility] [place] [address] Night Nurse: Seven Brennan MD AST [Catalytic activity/Vol] 14 U/L Normal 10-40 [facility] Comment on above: Performed By: #### 1 485, 99591 #### [facility] [place] [address] Night Nurse: Seven Brennan MD Bilirubin [Mass/Vol] 1.1 mg/dL Normal 0.2-1.2 [facility] Comment on above: Performed By: #### 1 485, 76607 #### [facility] [place] [address] Night Nurse: Seven Brennan MD Calcium [Mass/Vol] 9.5 mg/dL Normal 8.6-10.3 [facility] Comment on above: Performed By: #### 1 485, 10008 #### [facility] [place] [address] Night Nurse: Seven Brennan MD Chloride [Moles/Vol] 106 mmol/L Normal 98-110 [facility] Comment on above: Performed By: #### 1 485, 71677 #### [facility] [place] [address] Night Nurse: Seven Brennan MD CO2 [Moles/Vol] 23 mmol/L Normal 20-32 [facility] Comment on above: Performed By: #### 1 485, 89776 #### [facility] [place] [address] Night Nurse: Seven Brennan MD Creatinine [Mass/Vol] 0.96 mg/dL Normal 0.60-1.29 [facility] Comment on above: Performed By: #### 1 485, 48135 #### [facility] [place] [address] Night Nurse: Seven Brennan MD ELECTROLYTE BALANCE 10 mmol/L (calc) Normal 7-17 [facility] Comment on above: Performed By: #### 1 485, 59857 #### [facility] [place] [address] Night Nurse: Seven Brennan MD GFR/1.73 sq M.predicted among non-blacks MDRD (S/P/Bld) [Vol rate/Area] 101 mL/min/{1.73_m2} Normal > OR = 60 [facility] Comment on above: Performed By: #### 1 485, 39701 #### [facility] [place] [address] Night Nurse: Seven Brennan MD Glucose [Mass/Vol] 95 mg/dL Normal 65-99 [facility] Comment on above: Result Comment: Fasting reference interval Performed By: #### 1 485, 25271 #### [facility] [place] [address] Night Nurse: Seven Brennan MD Potassium [Moles/Vol] 4.2 mmol/L Normal 3.5-5.3 [facility] Comment on above: Performed By: #### 1 485, 77568 #### [facility] [place] [address] Night Nurse: Seven Brennan MD Protein [Mass/Vol] 7.1 g/dL Normal 6.1-8.1 [facility] Comment on above: Performed By: #### 1 485, 29662 #### [facility] [place] [address] Night Nurse: Seven Brennan MD Sodium [Moles/Vol] 139 mmol/L Normal 135-146 [facility] Comment on above: Performed By: #### 1 485, 09359 #### [facility] of [address] [place] [address] Night Nurse: Seven Brennan MD Urea nitrogen [Mass/Vol] 16 mg/dL Normal 7-25 [facility] Comment on above: Performed By: #### 1 8092, 64460 #### [facility] [place] [address] Night Nurse: Seven Brennan MD HEMOGLOBIN A1con 02-01-2025 HbA1c (Bld) [Mass fraction] 5.3 % Normal <5.7 [facility] Comment on above: Result Comment: For the purpose of screening for the presence of diabetes: <5.7% Consistent with the absence of diabetes 5.7-6.4% Consistent with increased risk for diabetes (prediabetes) > or =6.5% Consistent with diabetes This assay result is consistent with a decreased risk of diabetes. Currently, no consensus exists regarding use of hemoglobin A1c for diagnosis of diabetes in children. According to [place] Diabetes Association (ADA) guidelines, hemoglobin A1c <7.0% represents optimal control in non- diabetic patients. Different metrics may apply to specific patient populations. Standards of Medical Care in Diabetes(ADA). Performed By: #### 6 399 #### [facility] [place] [address] Night Nurse: Seven Brennan MD LIPID PANEL WITH REFLEX TO D IRECT LDLon 02-01-2025 Cholesterol [Mass/Vol] 216 mg/dL High <200 [facility] Comment on above: Performed By: #### 1 6572, 70052 #### [facility] [place] [address] Night Nurse: Seven Brennan MD Cholesterol in HDL [Mass/Vol] 63 mg/dL Normal > OR = 40 [facility] Comment on above: Performed By: #### 1 0492, 26348 #### [facility] [place] [address] Night Nurse: Seven Brennan MD Cholesterol in LDL [Mass/Vol] 133 mg/dL High [facility] Comment on above: Result Comment: Refe rence range: <100 Desirable range <100 mg/dL for primary prevention; <70 mg/dL for patients with CHD or diabetic patients with > or = 2 CHD risk factors. LDL-C is now calculated using the Valeria calculation, which is a validated novel method providing better accuracy than the Friedewald equation in the estimation of LDL-C. Pieter JUAREZ et al. ELI. 2013;310(19): 6866-0921 (http://education.Xiotech.Moviles.com/faq/DUN266) Performed By: #### 1 485, 38610 #### [facility] [address], [address] [place] [address] Night Nurse: Seven Brennan MD Cholesterol.total/Ch olesterol in HDL [Mass ratio] 3.4 {ratio} Normal <5.0 [facility] Comment on above: Performed By: #### 1 485, 33167 #### [facility] [place] [address] Night Nurse: Seven Brennan MD NON HDL CHOLESTEROL 153 mg/dL (calc) High <130 [facility] Comment on above: Result Comment: For patients with diabetes plus 1 major ASCVD risk factor, treating to a non-HDL-C goal of <100 mg/dL (LDL-C of <70 mg/dL) is considered a therapeutic option. Performed By: #### 1 485, 42227 #### [facility] [address], [address] [place] [address] Night Nurse: Seven Brennan MD Triglyceride [Mass/Vol] 97 mg/dL Normal <150 [facility] Comment on above: Performed By: #### 1 485, 11380 #### [facility] [place] [address] Night Nurse: Seven Brennan MD Measure post void residualon 08-20-2024 0cc [facility] Work Phone: [facility] Work Phone: POCT UA Automated manually r esultedon 08-20-2024 Appearance (U) Clear Clear [facility] Work Phone: Glucose Test strip (U) [Mass/Vol] Negative NEGATIVE mg/dl [facility] Work Phone: Hemoglobin Ql (U) Negative NEGATIVE [facility] Work Phone: Leukocyte esterase Test strip Ql (U) Negative NEGATIVE [facility] Work Phone: Nitrite Ql (U) Negative NEGATIVE [facility] Work Phone: pH (U) 6.0 [pH] No Reference Range Established [facility] Work Phone: POC Bilirubin, Urine Negative NEGATIVE [facility] Work Phone: POC Color, Urine Yellow Straw, [place] ow, Light-Yellow [facility] Work Phone: POC Ketones, Urine Negative NEGATIVE mg/dl [facility] [place] Work Phone: POC Protein, Urine Negative NEGATIVE, 30 (1+) mg/dl [facility] Work Phone: POC Specific [place], Urine >=1.030 1.005 - 1.035 [facility] Work Phone: POC Urobilinogen, Urine 0.2 0.2, 1.0 EU/DL [facility] Work Phone: [facility] Work Phone: Office Visit (Urology)on Follow-up visit Diagnoses/Problems Assessed Vasectomy evaluation (V25.09) (Z30.09) Never a smoker Orders SocHx: Never a smoker Tobacco Use Screening; Status:Complete; Done: [id number] Perform:Not Applicable;Ordered; For:SocHx: Never a smoker; Ordered By:Becca Al; Vasectomy evaluation Start: diazePAM 10 MG Oral Tablet; TAKE 1 TABLET 1 HOUR PRIOR TO PROCEDURE Rx By: Tabitha Gee II; Dispense: 1 Days ; #:1 Tablet; Refill: 0;For: Vasectomy evaluation; ALVA = N; Sent To: [address] Last Updated By: Becca Al; 05/16/2023 12:43:21 PM Follow-up visit in 1 month Outpatient Follow-up VAS Status: Hold For - Scheduling,Retrospec tive By Protocol Authorization Requested for: [id number] Ordered Stat;For: Vasectomy evaluation; Ordered By: Tabitha Gee II Performed: Due: 14Aug2023; Last Updated By: Becca Al; 05/16/2023 12:44:34 PM Patient Discussion/Summary Pros/cons of vasectomy reviewed. Questions answered.. Valium RX given . Observe mild LUTS. F/U vas in office Chief Complaint VAS CONSULT History of Present IllnessPatient is here for vasectomy consult. He is and has 2 children. No LUT'S SX. Review of Systems Constitutional: No fever, No chills. Eye: Negative. Ear/Nose/Mouth/Throa t: Negative. Respiratory: No shortness of breath, No cough. Cardiovascular: No chest pain, No peripheral edema. Gastrointestinal: No nausea, Genitourinary: Negative except as documented in history of present illness. Hematology/Lymphatic s: Patient denies being on blood thinners.. Endocrine: Negative. Immunologic: Not immunocompromised. Musculoskeletal: Negative Integumentary: Negative. Neurologic: Alert and oriented X4. Psychiatric: Negative. Surgical History Problems History of Appendectomy History of Ear surgery Family History Paternal Grandfather Family history of malignant neoplasm of prostate (V16.42) (Z80.42) Social History Problems Never a smoker Allergies Medication Sulfa Drugs Recorded By: Becca Al; 05/16/2023 12:43:21 PM Current Meds Medication NameInstruction No Reported Medications Vitals Vital Signs Recorded: 16May2023 12:42PM [id number] Height5 ft 10 in Jzlbyf261 lb 4 oz BMI Npeogrymxj69.58 kg/m2 BSA Calculated1.99 Tobacco Useb) No PHQ-2 #1. Over the last 2 weeks have you felt down, depressed or hopeless? (If yes, answer PHQ-9 below)No PHQ-2 #2. Over the last 2 weeks have you felt little interest or pleasure in doing things? (If yes, answer PHQ-9 below)No Falls Screening (Age 18+)a) No falls within the last year Physical Exam A/O x 3 in No apparent distress Constitutional: General appearance normal Respiratory: Respiratory effort is normal Gastrointestinal:Abd omen is not tender Genitourinary: Kidneys: Not palpable Bilaterally Bladder: Not palpable or tender Scrotum: No mass. No Hydrocele Epididymis: No spermatocele. Not tender Testicles: no mass Urethra: No Discharge Penis: WNL...No lesions. circumcised Signatures Electronically signed by : Tabitha Gee II, MD; May 16 2023 12:47PM EST (Author) Normal [facility] CBCon 01-31-2023 ABSOLUTE BAS 0.1 10*3/uL Normal 0.0-0.2 [facility] Comment on above: Performed By: #### L IPA2, CHEM7F, LIVR, ACBC #### Testing performed at [address] [place] [address] ABSOLUTE EOS 0.8 10*3/uL High 0.0-0.7 [facility] Comment on above: Performed By: #### L IPA2, CHEM7F, LIVR, ACBC #### Testing performed at [address] [address] ABSOLUTE NEUTROPHIL COUNT 7.8 10*3/uL High 1.4-6.5 [facility] Comment on above: Performed By: #### L IPA2, CHEM7F, LIVR, ACBC #### Testing performed at [address] [address] Basophils/100 WBC (Bld) 1.0 % Normal 0.0-2.0 [facility] Comment on above: Performed By: #### L IPA2, CHEM7F, LIVR, ACBC #### Testing performed at [address] [place] [address] DTYPE AUTO DIFF Normal [facility] Comment on above: Performed By: #### L IPA2, CHEM7F, LIVR, ACBC #### Testing performed at [address] [place] [address] Eosinophils/100 WBC (Bld) 6.9 % Normal 0.0-11.0 [facility] Comment on above: Performed By: #### L IPA2, CHEM7F, LIVR, ACBC #### Testing performed at [address] [address] Lymphocytes (Bld) [#/Vol] 1.9 10*3/uL Normal 1.2-3.4 [facility] Comment on above: Performed By: #### L IPA2, CHEM7F, LIVR, ACBC #### Testing performed at [address] [address] Lymphocytes/100 WBC (Bld) 16.8 % Low 20.0-55.0 [facility] Comment on above: Performed By: #### L IPA2, CHEM7F, LIVR, ACBC #### Testing performed at [address] [address] Monocytes (Bld) [#/Vol] 0.7 10*3/uL Normal 0.0-0.7 [facility] Comment on above: Performed By: #### L IPA2, CHEM7F, LIVR, ACBC #### Testing performed at [address] [address] Monocytes/100 WBC (Bld) 5.9 % Normal 0.0-10.0 [facility] Comment on above: Performed By: #### L IPA2, CHEM7F, LIVR, ACBC #### Testing performed at [address] [address] Neutrophils/100 WBC (Bld) 69.4 % Normal 37.0-75.0 [facility] Comment on above: Performed By: #### L IPA2, CHEM7F, LIVR, ACBC #### Testing performed at [address] [address] Erythrocyte distribution width (RBC) [Ratio] 12.8 % Normal 11.5-14.5 [facility] Comment on above: Performed By: #### L IPA2, CHEM7F, LIVR, ACBC #### Testing performed at [address] [address] Hematocrit (Bld) [Volume fraction] 44.1 % Normal 42.0-52.0 [facility] Comment on above: Performed By: #### L IPA2, CHEM7F, LIVR, ACBC #### Testing performed at [address] [address] Hemoglobin (Bld) [Mass/Vol] 14.9 g/dL Normal 14.0-18.0 [facility] Comment on above: Performed By: #### L IPA2, CHEM7F, LIVR, ACBC #### Testing performed at [address] [address] MCH (RBC) [Entitic mass] 29.8 pg Normal 26.0-35.0 [facility] Comment on above: Performed By: #### L IPA2, CHEM7F, LIVR, ACBC #### Testing performed at [address] [address] MCHC (RBC) [Mass/Vol] 33.7 g/dL Normal 27.0-37.0 [facility] Comment on above: Performed By: #### L IPA2, CHEM7F, LIVR, ACBC #### Testing performed at [address] [address] MCV (RBC) [Entitic vol] 88.3 fL Normal 80.0-100.0 [facility] Comment on above: Performed By: #### L IPA2, CHEM7F, LIVR, ACBC #### Testing performed at [address] [address] Platelet mean volume (Bld) [Entitic vol] 9.3 fL Normal 7.4-11.0 [facility] Comment on above: Performed By: #### L IPA2, CHEM7F, LIVR, ACBC #### Testing performed at [address] [address] Platelets (Bld) [#/Vol] 288 10*3/uL Normal 130-400 [facility] Comment on above: Performed By: #### L IPA2, CHEM7F, LIVR, ACBC #### Testing performed at [address] [address] RBC (Bld) [#/Vol] 4.99 10*6/uL Normal 4.0-6.1 [facility] Comment on above: Performed By: #### L IPA2, CHEM7F, LIVR, ACBC #### Testing performed at [address] [address] WBC (Bld) [#/Vol] 11.3 10*3/uL High 3.6-11.0 [facility] Comment on above: Performed By: #### L IPA2, CHEM7F, LIVR, ACBC #### Testing performed at [address] [address] CBC, EDIF, PLATELETon 2022 ABSOLUTE BASOPHIL COUNT 0.1 10*3/uL 0.0 - 0.2 10*3/uL [facility] Basophils/100 WBC (Bld) 1.0 % 0.0 - 2.0 % [facility] Differential cell count method Nom (Bld) AUTO DIFF % [facility] Eosinophils (Bld) [#/Vol] 0.8 10*3/uL High 0.0 - 0.7 10*3/uL [facility] Eosinophils/100 WBC (Bld) 6.9 % 0.0 - 11.0 % [facility] Erythrocyte distribution width (RBC) [Ratio] 12.8 % 11.5 - 14.5 % [facility] Hematocrit (Bld) [Volume fraction] 44.1 % 42.0 - 52.0 % [facility] Hemoglobin (Bld) [Mass/Vol] 14.9 g/dL [facility] Interpretation and review of laboratory results Abnormal [facility] Lymphocytes (Bld) [#/Vol] 1.9 10*3/uL 1.2 - 3.4 10*3/uL [facility] Lymphocytes/100 WBC (Bld) 16.8 % Low 20.0 - 55.0 % [facility] MCH (RBC) [Entitic mass] 29.8 pg 26.0 - 35.0 PG [facility] MCHC (RBC) [Mass/Vol] 33.7 g/dL [facility] MCV (RBC) [Entitic vol] 88.3 fL [facility] Monocytes (Bld) [#/Vol] 0.7 10*3/uL 0.0 - 0.7 10*3/uL [facility] Monocytes/100 WBC (Bld) 5.9 % 0.0 - 10.0 % [facility] Neutrophils (Bld) [#/Vol] 7.8 10*3/uL High 1.4 - 6.5 10*3/uL [facility] Neutrophils/100 WBC (Bld) 69.4 % 37.0 - 75.0 % [facility] Platelet mean volume (Bld) [Entitic vol] 9.3 fL [facility] Platelets (Bld) [#/Vol] 288 10*3/uL 130 - 400 10*3/uL [facility] RBC (Bld) [#/Vol] 4.99 10*6/uL 4.0 - 6.1 10*6/uL [facility] WBC (Bld) [#/Vol] 11.3 10*3/uL High 3.6 - 11.0 10*3/uL [facility] CHEM 7 FASTINGon 01-31-2023 Chloride [Moles/Vol] 103 mmol/L Normal 98-107 [facility] Comment on above: Performed By: #### L IPA2, CHEM7F, LIVR, ACBC #### Testing performed at [address] [address] CO2 [Moles/Vol] 25 mmol/L Normal 22-30 [facility] Comment on above: Performed By: #### L IPA2, CHEM7F, LIVR, ACBC #### Testing performed at [address] [address] Creatinine [Mass/Vol] 0.81 mg/dL Normal 0.66-1.25 [facility] Comment on above: Performed By: #### L IPA2, CHEM7F, LIVR, ACBC #### Testing performed at [address] [address] EST. GFR, 136 ml/min/1.73sq.m [facility] Comment on above: Performed By: #### L IPA2, CHEM7F, LIVR, ACBC #### Testing performed at [address] [address] EST. GFR,Non 112 ml/min/1.73sq.m [facility] Comment on above: Performed By: #### L IPA2, CHEM7F, LIVR, ACBC #### Testing performed at [address] [address] GFR Information Average GFR for 40-49 years old = 99. Normal [facility] Comment on above: Result Comment: [employer] miquel Kidney disease, GFR = <60. Kidney failure, GFR = <15. The GFR estimate is not adjusted for extreme body surface area or acute process, nor has it been validated for women or ethnic groups other than and . Performed By: #### L IPA2, CHEM7F, LIVR, ACBC #### Testing performed at [address] [address] Glucose [Mass/Vol] 97 mg/dL Normal 70-100 [facility] Comment on above: Result Comment: NORMAL <100 mg/dL PREDIABETES 101-126 mg/dL DIABETES 126 mg/dL or higher Performed By: #### L IPA2, CHEM7F, LIVR, ACBC #### Testing performed at [address] [address] Potassium [Moles/Vol] 4.1 mmol/L Normal 3.5-5.1 [facility] Comment on above: Performed By: #### L IPA2, CHEM7F, LIVR, ACBC #### Testing performed at [address] [address] Sodium [Moles/Vol] 141 mmol/L Normal 136-145 [facility] Comment on above: Performed By: #### L IPA2, CHEM7F, LIVR, ACBC #### Testing performed at [address] [address] Urea nitrogen [Mass/Vol] 14 mg/dL Normal 7-20 [facility] Comment on above: Performed By: #### L IPA2, CHEM7F, LIVR, ACBC #### Testing performed at [address] [address] CHEM 7 (LYTES,BUN,CREA,GLUC) on 01-31-2023 Chloride [Moles/Vol] 103 mmol/L [facility] CO2 [Moles/Vol] 25 mmol/L [facility] Creatinine [Mass/Vol] 0.81 mg/dL [facility] GFR COMMENT Average GFR for 40-49 years old = 99. [facility] Comment on above: Chronic Kidney disea se, GFR = <60. Kidney failure, GFR = <15. The GFR estimate is not adjusted for extreme body surface area or acute process, nor has it been validated for women or ethnic groups other than and . GFR/1.73 sq M.predicted among blacks MDRD (S/P/Bld) [Vol rate/Area] 136 mL/min/{1.73_m2} ml/min/1.73sq.m [facility] GFR/1.73 sq M.predicted among non-blacks MDRD (S/P/Bld) [Vol rate/Area] 112 mL/min/{1.73_m2} ml/min/1.73sq.m [facility] Glucose post fast [Mass/Vol] 97 mg/dL [facility] Comment on above: NORMAL <100 mg/dL PREDIABETES 101-126 mg/dL DIABETES 126 mg/dL or higher Potassium [Moles/Vol] 4.1 mmol/L [facility] Sodium [Moles/Vol] 141 mmol/L [facility] Urea nitrogen [Mass/Vol] 14 mg/dL [facility] CT ABDOMEN/PELVIS WITH CONTR Ant 01-31-2023 CT ABDOMEN/PELVIS WITH CONTRAST EXAMINATION: CT ABDOMEN/PELVIS WITH CONTRAST, 01/31/2023 10:37 AM EDT HISTORY: Right lower abdominal pain. COMPARISON: None. TECHNIQUE: CT scan of the abdomen and pelvis was performed with IV contrast. CT dose reduction technique was used, including Automated Exposure Control. FINDINGS: LOWER CHEST: Normal. ABDOMEN: Liver: Normal. Bile Ducts: Normal caliber. Gallbladder: No calcified gallstones. Normal caliber wall. Pancreas: Normal. Spleen: Scattered splenic calcified granulomas. Adrenals: Normal. Kidneys: Symmetric enhancement without hydronephrosis. PELVIS: Reproductive Organs: No pelvic masses. Ureters: Normal caliber. Bladder: Normal. OTHER ABDOMEN AND PELVIS: Bowel: No bowel obstruction. High density stool within the distal ileum and proximal colon, favored to relate to ingested medication/minerals. No bowel obstruction. Prominent caliber appendix with wall thickening, measures up to 9 mm. Findings are suggestive of acute appendicitis. Questionable mild thickening of the base of the cecum, suggestive of secondary inflammation. Peritoneum: No free intraperitoneal air. No ascites or fluid collection. Vessels: Normal. Lymph Nodes: No enlarged lymph nodes. Abdominal Wall: Tiny fat-containing umbilical hernia. Bones: No destructive lesions. IMPRESSION: Overall findings suggestive of an acute appendicitis. Distal appendix is located anterior to the cecum. No free intraperitoneal air. No organized fluid collection. Recommend surgical consultation. Critical results were NOTIFIED by TELEPHONE BY Dr. William Taylor DO to Juan Mello At 01/31/2023 11:00 AM EDT. Normal [facility] CT Abdomen and Pelvis W cont rast Ari 01-31-2023 IMPRESSION: Overall findings suggestive of an acute appendicitis. Distal appendix is located anterior to the cecum. No free intraperitoneal air. No organized fluid collection. Recommend surgical consultation. Critical results were NOTIFIED by TELEPHONE BY Dr. William Taylor DO to Juan Mello At 01/31/2023 11:00 AM EDT. RADIOLOGY EXAMINATION: CT ABDOMEN/PELVIS WITH CONTRAST, 01/31/2023 10:37 AM EDT HISTORY: Right lower abdominal pain. COMPARISON: None. TECHNIQUE: CT scan of the abdomen and pelvis was performed with IV contrast. CT dose reduction technique was used, including Automated Exposure Control. FINDINGS: LOWER CHEST: Normal. ABDOMEN: Liver: Normal. Bile Ducts: Normal caliber. Gallbladder: No calcified gallstones. Normal caliber wall. Pancreas: Normal. Spleen: Scattered splenic calcified granulomas. Adrenals: Normal. Kidneys: Symmetric enhancement without hydronephrosis. PELVIS: Reproductive Organs: No pelvic masses. Ureters: Normal caliber. Bladder: Normal. OTHER ABDOMEN AND PELVIS: Bowel: No bowel obstruction. High density stool within the distal ileum and proximal colon, favored to relate to ingested medication/minerals. No bowel obstruction. Prominent caliber appendix with wall thickening, measures up to 9 mm. Findings are suggestive of acute appendicitis. Questionable mild thickening of the base of the cecum, suggestive of secondary inflammation. Peritoneum: No free intraperitoneal air. No ascites or fluid collection. Vessels: Normal. Lymph Nodes: No enlarged lymph nodes. Abdominal Wall: Tiny fat-containing umbilical hernia. Bones: No destructive lesions. RADIOLOGY William Taylor MD - 01/31/2023 EXAMINATION: CT ABDOMEN/PELVIS WITH CONTRAST, 01/31/2023 10:37 AM EDT HISTORY: Right lower abdominal pain. COMPARISON: None. TECHNIQUE: CT scan of the abdomen and pelvis was performed with IV contrast. CT dose reduction technique was used, including Automated Exposure Control. FINDINGS: LOWER CHEST: Normal. ABDOMEN: Liver: Normal. Bile Ducts: Normal caliber. Gallbladder: No calcified gallstones. Normal caliber wall. Pancreas: Normal. Spleen: Scattered splenic calcified granulomas. Adrenals: Normal. Kidneys: Symmetric enhancement without hydronephrosis. PELVIS: Reproductive Organs: No pelvic masses. Ureters: Normal caliber. Bladder: Normal. OTHER ABDOMEN AND PELVIS: Bowel: No bowel obstruction. High density stool within the distal ileum and proximal colon, favored to relate to ingested medication/minerals. No bowel obstruction. Prominent caliber appendix with wall thickening, measures up to 9 mm. Findings are suggestive of acute appendicitis. Questionable mild thickening of the base of the cecum, suggestive of secondary inflammation. Peritoneum: No free intraperitoneal air. No ascites or fluid collection. Vessels: Normal. Lymph Nodes: No enlarged lymph nodes. Abdominal Wall: Tiny fat-containing umbilical hernia. Bones: No destructive lesions. IMPRESSION IMPRESSION: Overall findings suggestive of an acute appendicitis. Distal appendix is located anterior to the cecum. No free intraperitoneal air. No organized fluid collection. Recommend surgical consultation. Critical results were NOTIFIED by TELEPHONE BY Dr. William Taylor DO to Juan Mello At 01/31/2023 11:00 AM EDT. [facility] Radiology Study observation (narrative) [facility] CT Abdomen and Pelvis W cont rast IVOrdered By: William Taylor on 01-31-2023 [facility] Work Phone: HEPATIC FUNCTION PANELon Albumin [Mass/Vol] 4.4 g/dL [facility] ALP [Catalytic activity/Vol] 70 U/L [facility] ALT [Catalytic activity/Vol] 20 U/L [facility] AST [Catalytic activity/Vol] 17 U/L [facility] Bilirubin [Mass/Vol] 1.0 mg/dL [facility] Bilirubin.direct [Mass/Vol] 0.1 mg/dL [facility] Protein [Mass/Vol] 8.1 g/dL [facility] LIPASEon 01-31-2023 Lipase [Catalytic activity/Vol] 39 U/L 23 - 300 U/L [facility] LIPASE,SERUMon 01-31-2023 LIPASE,SERUM 39 U/L Normal 23-300 [facility] Comment on above: Performed By: #### L IPA2, CHEM7F, LIVR, ACBC #### Testing performed at [address] [address] LIVER PANELon 01-31-2023 Albumin [Mass/Vol] 4.4 g/dL Normal 3.5-5.0 [facility] Comment on above: Performed By: #### L IPA2, CHEM7F, LIVR, ACBC #### Testing performed at [address] [address] ALP [Catalytic activity/Vol] 70 U/L Normal 38-126 [facility] Comment on above: Performed By: #### L IPA2, CHEM7F, LIVR, ACBC #### Testing performed at [address] [address] ALT [Catalytic activity/Vol] 20 U/L Normal 17-63 [facility] Comment on above: Performed By: #### L IPA2, CHEM7F, LIVR, ACBC #### Testing performed at [address] [address] AST [Catalytic activity/Vol] 17 U/L Normal 15-41 [facility] Comment on above: Performed By: #### L IPA2, CHEM7F, LIVR, ACBC #### Testing performed at [address] [address] Bilirubin [Mass/Vol] 1.0 mg/dL Normal 0.2-1.2 [facility] Comment on above: Performed By: #### L IPA2, CHEM7F, LIVR, ACBC #### Testing performed at [address] [address] Bilirubin.indirect [Mass/Vol] 0.1 mg/dL Normal 0.0-0.2 [facility] Comment on above: Performed By: #### L IPA2, CHEM7F, LIVR, ACBC #### Testing performed at [address] [address] Protein [Mass/Vol] 8.1 g/dL Normal 6.3-8.2 [facility] Comment on above: Performed By: #### L IPA2, CHEM7F, LIVR, ACBC #### Testing performed at [address] [place] [address] No Panel Informationon 01-31 [facility] URINALYSIS, MACROon 02-01-20 23 Bilirubin Ql (U) Negative NEGATIVE [facility] Clarity (U) CLEAR CLEAR [facility] Color (U) YELLOW YELLOW [facility] Glucose Test strip (U) [Mass/Vol] Negative NEGATIVE mg/dl [facility] Hemoglobin Ql (U) Negative NEGATIVE [facility] Ketones (U) [Mass/Vol] Negative NEGATIVE mg/dl [facility] Leukocyte esterase Test strip Ql (U) Negative NEGATIVE [facility] Nitrite Ql (U) Negative NEGATIVE [facility] pH (U) 7.0 [pH] 5.0 - 7.0 [facility] Protein Ql (U) Negative NEGATIVE mg/dl [facility] Specific gravity (U) [Rel density] 1.025 1.010 - 1.025 [facility] Urobilinogen (U) [Mass/Vol] 0.2 mg/dL [facility] URINE MACROSCOPICon 02-01-20 23 Bilirubin Ql (U) Negative Normal NEGATIVE [facility] Comment on above: Performed By: #### U MAC #### Testing performed at [address] [place] [address] Clarity (U) CLEAR Normal CLEAR [facility] Comment on above: Performed By: #### U MAC #### Testing performed at [address] [place] [address] Color (U) YELLOW Normal YELLOW [facility] Comment on above: Performed By: #### U MAC #### Testing performed at [address] [place] [address] Glucose Ql (U) Negative Normal NEGATIVE [facility] Comment on above: Performed By: #### U MAC #### Testing performed at [address] [place] [address] pH (U) 7.0 [pH] Normal 5.0-7.0 [facility] Comment on above: Performed By: #### U MAC #### Testing performed at [address] [address] URINE HEMOGLOBIN Negative Normal NEGATIVE [facility] Comment on above: Performed By: #### U MAC #### Testing performed at [address] [address] URINE KETONE Negative Normal NEGATIVE [facility] Comment on above: Performed By: #### U MAC #### Testing performed at [address] [address] URINE LEUKOTEST Negative Normal NEGATIVE [facility] Comment on above: Performed By: #### U MAC #### Testing performed at [address] [address] URINE NITRATES Negative Normal NEGATIVE [facility] Comment on above: Performed By: #### U MAC #### Testing performed at [address] [address] URINE SPEC GRAVITY 1.025 Normal 1.010-1.025 [facility] Comment on above: Performed By: #### U MAC #### Testing performed at [address] [address] URINE TOTAL PROTEIN Negative Normal NEGATIVE [facility] Comment on above: Performed By: #### U MAC #### Testing performed at [address] [address] Urobilinogen Qn (U) 0.2 {Quyen'U}/dL Normal 0.2-1.0 [facility] Comment on above: Performed By: #### U MAC #### Testing performed at [address] [address] CBC Auto Differentialon 10-0 -2021 Basophils (Bld) [#/Vol] 0.13 10*3/uL [facility] Basophils/100 WBC (Bld) 1.6 % [facility] Eosinophils (Bld) [#/Vol] 1.49 10*3/uL [facility] Eosinophils/100 WBC (Bld) 18.7 % [facility] Erythrocyte distribution width (RBC) [Entitic vol] 12.2 % 11.6 - 14.8 % [facility] Hematocrit (Bld) [Volume fraction] 42.9 % 41 - 53 % [facility] Hemoglobin (Bld) [Mass/Vol] 14.7 g/dL 13.5 - 17.5 g/dL [facility] Immature granulocytes (Bld) [#/Vol] 0.01 10*3/uL [facility] Immature granulocytes/100 WBC (Bld) 0.10 % [facility] Comment on above: The IG parameter is the percentage of metamyelocytes, myelocytes and promyelocytes. An immature granulocyte count (IG) of 1% or more suggests the possibility of infection, an IG count of 3% is very likely related to an infection. Interpretation and review of laboratory results Abnormal [facility] Lymphocytes (Bld) [#/Vol] 1.92 10*3/uL [facility] Lymphocytes/100 WBC (Bld) 24.2 % [facility] MCH (RBC) [Entitic mass] 30.2 pg 26 - 34 pg [facility] MCHC (RBC) [Mass/Vol] 34.3 g/dL 31 - 37 g/dL [facility] MCV (RBC) [Entitic vol] 88.1 fL 80 - 100 fL [facility] Monocytes (Bld) [#/Vol] 0.57 10*3/uL [facility] Monocytes/100 WBC (Bld) 7.2 % [facility] Neutrophils (Bld) [#/Vol] 3.83 10*3/uL [facility] Neutrophils/100 WBC (Bld) 48.2 % [facility] Nucleated RBC (Bld) [#/Vol] 0.00 10*3/uL [facility] Nucleated RBC/100 WBC (Bld) [Ratio] 0.0 % [facility] Platelet mean volume (Bld) [Entitic vol] 11.5 fL 9.4 - 12.4 fL [facility] Platelets (Bld) [#/Vol] 319 10*3/uL [facility] RBC (Bld) [#/Vol] 4.87 10*6/uL [facility] WBC (Bld) [#/Vol] 7.95 10*3/uL [facility] Comprehensive metabolic 2000 panelon 06-25-2022 Albumin [Mass/Vol] 4.4 g/dL 3.2 - 5.2 g/dL [facility] ALP [Catalytic activity/Vol] 82 U/L 40 - 140 U/L [facility] ALT [Catalytic activity/Vol] 26 U/L 14 - 65 U/L [facility] Anion gap [Moles/Vol] 14 mmol/L 10 - 20 mmol/L [facility] AST [Catalytic activity/Vol] 16 U/L 0 - 45 U/L [facility] Bilirubin [Mass/Vol] 1.3 mg/dL 0 - 1.3 mg/dL [facility] Calcium [Mass/Vol] 9.7 mg/dL 8.4 - 10. 2 mg/dL [facility] Chloride [Moles/Vol] 106 mmol/L 98 - 108 mmol/L [facility] Creatinine [Mass/Vol] 0.97 mg/dL 0.50 - 1.30 mg/dL [facility] GFR/1.73 sq M.predicted CKD-EPI (S/P/Bld) [Vol rate/Area] 102 - PINF [facility] Comment on above: Estimated GFR was ca lculated using the 2020 CKD-EPI creatinine equation. Glucose [Mass/Vol] 76 mg/dL 65 - 99 mg/dL [facility] HCO3 [Moles/Vol] 24 mmol/L 21 - 32 mmol/L [facility] Potassium [Moles/Vol] 4.3 mmol/L 3.5 - 5.1 mmol/L [facility] Protein [Mass/Vol] 8.3 g/dL High 6 - 8 g/dL [facility]th Sodium [Moles/Vol] 140 mmol/L 135 - 145 mmol/L [facility] Urea nitrogen [Mass/Vol] 17 mg/dL 8 - 25 mg/dL [facility] Urea nitrogen/Creatinine [Mass ratio] 17.5 mg/mg 10 - 20 [facility] Laboratory Services has implemented the eGFR calculation approach that does not have a coefficient for race that conforms to the NKF-ASN Task Force Recommendations. [facility] Lipid 1996 panelon 2 Cholesterol [Mass/Vol] 223 mg/dL High 100 - 199 mg/dL [facility] Comment on above: National Cholesterol Education Program Guidelines: Cholesterol Desirable: <200 mg/dL Borderline High: 200-239 mg/dL High: greater than or equal to 240 mg/dL Cholesterol in HDL [Mass/Vol] 60 mg/dL 40 - 59 mg/dL [facility] Comment on above: National Cholesterol Education Program Guidelines: HDL Cholesterol Low: <40 mg/dL Near Optimal: 40-59 mg/dL High: greater than or equal to 60 mg/dL Cholesterol in LDL [Mass/Vol] 143 mg/dL High 10 - 130 mg/dL [facility] Comment on above: National Cholesterol Education Program Guidelines: LDL Cholesterol Optimal: <100 mg/dL Near Optimal/above Optimal: 100-129 mg/dL Borderline High: 130-159 mg/dL High: 160-189 mg/dL Very High: greater than or equal to 190 mg/dL Cholesterol non HDL [Mass/Vol] 163 mg/dL [facility] Comment on above: National Cholesterol Education Program Guidelines: NON HDL Cholesterol Desirable: <130 mg/dL Borderline High: 130-159 mg/dL High: 160-189 mg/dL Very High: > or = 190 mg/dL Cholesterol.total/Ch olesterol in HDL [Mass ratio] 3.7 {ratio} ratio [facility] Comment on above: Males Cholesterol/HD L Ratio: Average risk: 5.0 1/2 average risk: 3.4 2 x average risk: 9.6 Triglyceride [Mass/Vol] 98 mg/dL 30 - 150 mg/dL [facility] Comment on above: National Cholesterol Education Program Guidelines: Triglyceride Normal: <150 mg/dL Borderline High: 150-199 mg/dL High: 200-499 mg/dL Very High: greater than or equal to 500 mg/dL No Panel Informationon 06-25 Interpretation and review of laboratory results Abnormal [facility] XR SPINE LUMBOSACRAL 5 VIEWS on 10-22-2021 IMPRESSION: Dextroconvex curvature possibly positional or from spasm. Otherwise there is mild spondylosis and no other evidence for acute lumbar spine pathology On some images there is a partially seen curvilinear density anterior to the spine although seen at different levels and probably something external to the patient RADIOLOGY EXAM: XR SPINE LUMBOSACRAL 5 VIEWS HISTORY: pain over 2 weeks duration COMPARISON: None TECHNIQUE: AP, lateral, bilateral oblique, coned-down lateral FINDINGS: Dextroconvex curvature. No evidence for pars defect, subluxation, or acute compression fracture. Disc degenerative change L2-L3. Curvilinear density seen on some images anterior to the spine although at different levels and possibly something external to the patient. RADIOLOGY Seven Christine MD - 10/22/2021 EXAM: XR SPINE LUMBOSACRAL 5 VIEWS HISTORY: pain over 2 weeks duration COMPARISON: None TECHNIQUE: AP, lateral, bilateral oblique, coned-down lateral FINDINGS: Dextroconvex curvature. No evidence for pars defect, subluxation, or acute compression fracture. Disc degenerative change L2-L3. Curvilinear density seen on some images anterior to the spine although at different levels and possibly something external to the patient. IMPRESSION IMPRESSION: Dextroconvex curvature possibly positional or from spasm. Otherwise there is mild spondylosis and no other evidence for acute lumbar spine pathology On some images there is a partially seen curvilinear density anterior to the spine although seen at different levels and probably something external to the patient [facility] Radiology Study observation (narrative) [employer] XR SPINE LUMBOSACRAL 5 VIEWS Ordered By: Seven Christine on 10-22-2021 [facility] Work Phone: COVID-19, MOLECULARon 2019 INTERNAL CONTROL (ABBOT ID) Pass Normal [facility] SARS-COV-2 (GALICIA ID) Not Detected Normal Not Detected [facility] COVID-19, Molecularon 2019 Internal Control Pass [facility] Interpretation and review of laboratory results Normal [facility] SARS-CoV-2 Not Detected Not Detected [facility] TISSUE EXAMon 01-28-2020 Case Report Surgical Pathology Report Case: [id number] Authorizing Provider: Deep Stapleton MD Collected: 01/25/2020 09:20 AM Ordering Location: [facility] Received: 01/25/2020 01:46 PM Endoscopy Pathologist: Ghassan Morse MD Specimens: A) - Gastroesophageal Junction B) - Esophagus, 33cm [facility] Clinical information [id number] y VQZyKOGps5avWCWbzMTm ZzEwMzNcZnRuYmpcdWMx UWOlZeLzp8bfx510mFJr q4ucMWZxCzY3wZOtFRSw rKIxK970e1vom7sghtWt mCZ7LZMsRKO7UHksebTk ztT3JPhnaKRdUqZ7GTat cmVkMFxncmVlbjBcYmx1 FEXlU914RZS7aCrdz5ll EJM4DFXuNUJwTxIoKb1c jRZfS350MSIkEJZGZVKp dBj2EKXllpCyhhBhtTOW m937P272n5ruXLRdpeNh pOqVnhter6nuQ879PXVh cGVydzEyMjQwXHBhcGVy hVB9REPyHR8usdznDuXj RD9agkvyYqRpVB0mqyl3 PYW3NYgoKPBcQwU0IQRk oFJgXPRiiPknUBgrq089 XPH8RFnii3rfk9gwaBCk Nxh2KYIiRrJsHonsOQwa b7Pho9paWRJfig9yPGA4 eTCglPeoi1U4mFRfLSQy mRDpcuStSASiQaV3QYwe KL6kny90ENVqJGH1uk1e bGNccGdicmRyaGVhZFxw T4PwWRBkr119UOCfW5Cj JZWxq9P4glGnClBpHVCa lCF4mvK1RZKiENy3xYLg wiF1ifSewNShC2amuS55 VlYkbIKbR0NyrB88VoPf hCZfW7KwqK3cFBAjAY6a nzkqb6gmMJF3RRzeYGSt RNZ9LdVcBNGqr0Ygsrra VUEas5AwS3CikBtwS69y iQufD66lXQIigDnlaW0h mAfwoH2vVjYlBmMqENvw bFxwbGFpblxmMFxmczIw LFcvndopSPAzIVkkI3mk AiHiVSOdcAfkYYtoa4Ai XGYwXGZzMjAgUGhhcnlu F84rn74nqTFbIXBzCSN8 k8DgJYuoZGInLmThCeW8 KSwgaGVhcnRidXJuIChS AVIpZBTpJRZqj0RaDWWz Y4MvF7u8MTZbx59uGLYz WJ8pWAulJSE7 [facility] Pathology report final diagnosis Narrative l4dbbIXwKDNxyFFbIxRp ONWhIKYdv6arIBNhxDJw ZzEwMzNcZnRuYmpcdWMx WKRbXwGwz9drs666qXJb a5lgEVYtWkY2pEGlFPIa dIIcS294BCSaQFacb6wm n8HyBCRhoJVdm1Q2YVZI fareyBn2dHxhJ22an1Z3 FytaC1vbPHXbCZHyS0Ps ZP2tZMLsPyy6UOA2BUI5 LWWmPMEhA3OdJX2lRGDs wMPrJLuzteOyTsX8FUnh TIExNdW0UAZjhFYsWIvq Y7laVPMmCOdfDCJmXTlz iOCrIaY8ZAt6w3izsLcv RWZqOFM7j7fjTFminwYt IS1yde4awDv6x1jklmSm LGJwWTXsbYHHFOQfV2Kg fWctBa9gsHt5oJeqBird JHM2Kpz4DL6lyw52fou4 aZtfOJBlvydgUgK6BPtx LHQgtsewSZq4ZCicWYJd bDcyMFxtYXJncjcyMFxt BFBscEU6BUJnyLKhQ2Pa HPIhUOmdBNXznru5IbYe Zc9ihQVxqEQgpq0vti06 FTA2o5FbnKemRAT9VVW2 VnEvMz6nvLPlXMLkQL0h BbUaoLYlBGEouz93eIhm BAxamzDoxO8nZvTySLJx yDZrMXFwAK1bjABiHXZz hW9vqlfjKDSnMiRwiclb VURpwGfnnkTxWr8fzIct ZOM5AWipN8hvvV1gWrI7 LEjpY8qeyH3oXDw7GHrw lDJ7KZJziX0mBX6qmjqs d3utLfYeKI9ldenhq9ex UsXnDW1ffmt1j1zoONI6 YXaeVGXzNfS3gtK5XTOb pIXrDMDpjQmzNKmlg526 YOJ9JOqtIxdyENydJGLy bmNvbnRccGduZGVjXHBs YWluXHBsYWluXGYwXGZz ZxNsxRaomVkjaW9gCpJh YiIsSYleXD1pFPJwR3ra uLSeYUHoXPJeC6ohJiVi pD5unSpgGSxhVtShZbKm FFseQUWqNSKhtBwfsC0y MrOkMaQyCKmtXZ3mSMKx X2atkXTrUDHrATAlA8vh NoPbsJ6usSluHYezTpAj RuGrOOlxBURck2LpF5N6 OMPxYYogv2neCCIbZLfm n0PzRJeBLFKYFC5IFY5w jXG7UFlAKOPPE7kLuCD7 NqE3jDP4KH39ZYWvDBJo oOCjCSwkL894NIYsUUdv XGYxXGZzMjBcbGFuZzEw MzNcaGljaFxmMVxkYmNo UWVxGZbkL5wsAbSaN9Dh IJGgFsAnDkqhwe55JUK1 QOrfy4Lxs9Szb9JnRKnz DIfiekQmG9Uug25qFEOe e1ZlbYsssGrgpJ5oTpEl GpPaOHndNY9wJIEjY3gh xNRjGWSpASMhY2fxKxGe wE8mjHhiQEobOjHuSmOc XVafFOIef5XvN3K7JGGp GGtch9atTTUpRPiis4Qr JHkKBGWYAV4DFS5seIC0 NAjQNDTMWRzcCUA3ITly oUC4s8uboZLos6h5FMrx FQS3nKzmdXPjymkpDUyc czIwXGxhbmcxMDMzXGhp K8mmKkKnDDDowOsmLQkj f3OxXRTlWPPuXqKkrHIt XGxpNzIwXHBsYWluXGYw BTKqPxNqgLgtfP5gUuCc ZjQoWLluMW0fKFSjU9ff pJUvYZKySXLvF1omGeTu iG4eaIrjBCtrxtKtUUEg YYYsg7FiFPbaDUtcm2K6 FY5lpUKjrLVyj4VyWTzz tWjslmIjQ2XkrxEeY8cg suuqbzDpueEkhONty7Ce vFttkV7zkyDup6AsLNZg a8atv4WjaXdlFWwpghHa aJZdBGWaOD6gWEVaQCTd v7tpu6SaaQshVCUlfmEo rRoiSCPho3IoYEYuPDde DNwnF64yw7yxvHHxrIM4 aXRoIHRoZSBjbGluaWNh zKZhjPKkEEMpdG6wAM0r AWKwm4xsw2OxyFosPaGe c91wuWHnxEOyox8zqUNz IDIuIEluZmxhbWVkIGdh f3MhkERnD1OyHOskKlWp RLnfQLN6iOXmhBJzf2Pp UqmmCAUtYw7uLe4sDQLl CKRsP7Kyv7ItwN23MEJ2 aO5inJYdTEJhbBzpg0ex SP4dVED0o1JqXJLnBS1a cGFyXGxpMFxwbGFpblxm KSwajpA9VJKpMFdyMCTz XGZzMjBcbGFuZzEwMzNc aGljaFxmMVxkYmNoXGYx IRfzU8srTrUoBtApBVqb WBXmiGyrhY8cXzGbDgJl SPelIP5fQTRbK8azpAAb SLLgHDDgJ4eoUoLvfV5c aFxmMVxjZjJcZnMyMFxi IFUxEVNcoJqczY0kAcMf JzZfJBfuIE2eMIAbN7xd aMNtWLQwTLJiY5zzRoVo uH8geLboVAbzTuHmCdIf SUzoLJVyt3TzQ2T5UKBr TBduj8gnUQWoRZvli0No JNdDMTVMGD5XKE8hpWV9 HYuXACFAQ7tVjEM8BdK5 cEP2LV74YQUyIZZxjOWm FIlrZ711DZGgYSixWUDf XGZzMjBcbGFuZzEwMzNc aGljaFxmMVxkYmNoXGYx OQpaW4aiSmAyM9AqXVLw SbWbZsysor35TDG8RWZb m3AzXVi2rcjsoKrtgL8y HoOzPpTgVNztXE2zVHQq J7yacNQiGFOlHNQiX9eu GaQzdP3dvGwlOTkqSyRd XqDgRIwzNDRnr7MdR1D5 AGFpNJjaa6otUROtCUvl e7TxKOwAXBTBOO4BIH1x pLA7YAmVWQEDL7tMmRP5 QSP2rSD7d2qqxQEos1w6 APcgFHU5cSblpQRbwpsy MVxmczIwXGxhbmcxMDMz WWxgW8pePuDwDQGgwGgv JIkhv1YwFEPkJPKjFrzv czIwXGJccHJvdGVjdCAg XHBsYWluXGYxXGZzMjBc bGFuZzEwMzNcaGljaFxm DTucUeJrDNJpDOpvN6hd NdDvC0M9ZSKvNkGmDmyk ja68WWE7o1rygQOnMHgs MrnhxBMgvqC3WVjJGWTA FLsGRiDfHA1mMZlUX7OT LeS7LqB5Afq2Ka96PPHl CWCzxHVzXEyzE455RRVy YWluXGYxXGZzMjBcbGFu ZzEwMzNcaGljaFxmMVxk TjLxSCFaEQdlX1hnJcVj J3BsTWBoUvBnBedaey49 LBG3FWIgt0JypCprzHuh vN6nHtPpDtSnOOwiTE2o TKSqI1avrTLjGIMwNSFh V7deQpGztR9qdXkuNEda HzXyPsPgTMyzOCMcu8Hj O8T7ZLJuEEifv8phRUDe SJtfw2LgZCeHMLPFCX5G OF0ntYY4NWuRUVNFQHwv DMH5WGpgwRI6l6vhzVQt z5a2HCmqYOV5iMwzlQGd blxmMVxmczIwXGxhbmcx OCGmRZmzC4kzJdQsOZLj cHpkTDmhv6JtAHWoDBHd MjBccGFyXGxpNzIwXHBs YWluXGYwXGZzMjRccGxh hQ9yOhQgTfYyDYsfLJ9t NWYxV5hdjYTsXGTuHVGp Z0msZpWujH1voPamQWpu bhAqZTQie6WcCEwiZYtb w4V3HO1pcESyxWIyj8Bu SRlpdYwtvfNiE8MxizYz B9ocwqboojIigoLloTUt w9ScqEsnkH0udzDmk2Fi ERScm9tdr9QybWnzAQg8 xXN1tcKlKJTfs4Oyjy2g aGlscyBwZXIgaGlnaCBw w3bvqeAmjQVfTIccORQs noInn8TgpeVxh2l1yZT6 vSWaT7leedcjPLsmwT4n qcCdh8nfwmAtQxEht0Zo tf4bsClxrUTvGDLwgTvu L3y2bVOrVIBipwxyxJBs wFrrcF4pOfPlXbPbTPkt bGFpblxmMVxmczIwXGxh rnluGMYgHOdaH6bvOuOz INAsjWezYCwzm8LkJFEr XGZzMjBccGFyXHBhclx2 JRVBGLSJMWeMID9MHBSZ CXOXRR0LIMjZBgGiKNW4 NXwwPTEyOjpfMzQzNDV8 UM24UcM0FiU0HFW4iKL2 ZBh1TLISKOVUEGuCGA1X QUAKFAAFVI9DBmSnY6wW RENBUkRfTUVUQURBVEFf LqTLBH9jE1xMVJMCDaRw ECLCOWKBUQZdRP2THUNK QFTXNI4LMPKIE76CQYCA AHCXN5CYY6rAHCOxf8XG mNWdcGY7IuQjDIAacRLc d4JLrUIsxGQ9MkWdXIKd mFNmw0RFIIWnpVvbN7Sa IiQ2QGX9AQ3eUGsPO5KZ Q4vGQXDdWDXIKDVKXDRd GT5NWGoYXM6TIXQgQRYT FAJTJZKfFkUSUZ5tANeV ML6QWVJlRNGLZVRBLQZg KE4NKBNXUG1EGSNCYNDM G21DJZMMRUMJU6ZQZ4lP JSDOSMRCPnIABoVBTW2V UZGIVCHYAN5WQpG8 [facility] Pathology report gross observation Narrative k5mhhTBjQXNvpPNdLoMf RTBfBZDxk0jkGQZcyOVu ZzEwMzNcZnRuYmpcdWMx SXEnRcGat9nox313qTQf s1ezGFJiJtR0wQJpBZWz cVGwQ080DECiOQwsy8vw j9PyLVZocEYko1Y8JNGM gfcraPr6wKmlG44we0R9 ZrghJ2rwYRThWIFrQ4Qn RL4vZSCqBxo6YTE8RNV7 WHYqBMYvN5QcRG0mVVHe wGSuLYqwtxHdOmM4SUen RDWcAqL5AQIriSKkTCpq U830IVF8jJcit6dyLBG7 NSBtCXDmEyQjBl3ayDEv R455OBAlRENZPYOaxLu8 PVPtsbYwecQvrAQIs090 J450g4jgWHQilvJjpIuG fmwpw6poB002JUBloRLt dzEyMjQwXHBhcGVyaDE1 FVSdUM4boizdXmMdNT8q liznVmXjKE5bkzh7OYF2 LXjzFEPcLvF2FGPhxAEx PBFcrYcpDPjux567OGU2 RUqez2ynf9kuxJTpZxj8 XXAnLvAoBxfgVRohe2An d9fbTBNhgz7pKBS0eOIx yTuln4K0lRJsWMBpbBVq ufCuJSAaNlO2JFajXG9s ke23IBIaTCI6fl4xpOGp yHfbpnFwpAZcFNrcZ9By RUBgs220GXSqS9TxXVZy p6N4zuEsRuYjAOHopBA5 gtW6ENOkAHh7eGNgcwE8 ssHclFJsI6bnaE10FpPm sNFzW0KcdO63ZjXozOGo N1DboZ2bNUMbOH2uizxm b9azQEW0RGwoZIScWKR6 DnDeLWVgq5MankrcEVFr j9HdP9IgqAlrQ42lgTea E62uMTMekZiiyE6yhBvn iC2aNjMrDbBkRFfuHIDp XHBsYWluXGYxXGZzMjBc bGFuZzEwMzNcaGljaFxm TRpbYwSeUMZlOPzeB2ay ZjFcZnMyMCBBLiBSZWNl gRKjFNFxwiOmz5UeTZca biwgZGVzaWduYXRlZCAi IA8VGAA1aq1qc17tyITp FXGdNSm3eaNHhO2pp4yj DLZpvFejyI9qYcWiWdOq VJefYL9pZNPdH1mdnNUj AWZuPKMbZ2wpTfZyaT3w aFxmMVxjZjJcZnMyMFxw rc43IBJ6k5xrpEZdHCjj ZbrduAJmwiV9XZdPGDTE DYrINzBsSH1rMCvKW9IT SRrZVincVQU2WOwnnLV3 i5txkPRfj9m1DFvgIUR4 fVxwbGFpblxmMVxmczIw AZjjubwtWYOeJTbrL7nz DjFyTYZsvSaiHCatk7Fz XGYxXGNmMlxmczIwXHBy f4SvQ3CqPKTtHZOduDzb rJ0sOkZcSsPoSWydIR0d GQDlT3tgqQHbFRNqSCUp D9uiRrUtdD3ltXkvAHdz LeJaRlNiYQwbvw41UYI5 x7pekRMdJVirUkeckUPm vkA7NJnWJVMWKXmIGyAw CN4sBOhLD9EJRkK1ZvNb EVL5GwlkaXshOinapbYa zIRbWjVwnR6ahVpbpS9b WoCzQeSrSJpyJT0oBQUj Q0ddvMLrOWElTKVoE9li JpYzqS1irWtmZGfdvvAg NPQ9AD5mEyKcN20zuuSt doxbt1ChwMieh8MxBN6a VRB9kdbeWiQsEomqaXDc YisgsIWrSqBdO75udHnb hV9gSmTbWtCzESpqLT9t UULgS0dvqWZyRZHuMPQr P7lbEiPemB5xuIowUOzp AhYvByDjZItgan30YAY8 g7ymcSQfZVsiXldamLXe ejE7PApIBXJPEScEKfOw BQ1wBUvHY9JDJOuWKmgx PAJ9W3qinND6m1imaRLg a7c4QZrhTAL4yWrbrPUt blxmMVxmczIwXGxhbmcx NQWfHCxnQ6tcRtYnUPBg eWdjHIobt4SeIFXpAGKk XgqfplMgUJYnm5DaX4Nt OUbvBPFlH4AmG8F5NX4f xDxosZ0iRrFtHxOjEZin LE8jUFEmK1fqlJJeXJBu YLHoE9nqYdZkbH0guDbf CDlwFyHvLgUnIKyyoz52 FHR1r5nmuZAfPIxiTwgj xWAnorT5ROrYOSRGKOcM KiXqTP9xKSeNY5COEnI3 PsTsWZO9YBslbMphMrgv ivPzaHLcTiOtpW8ghNet hN7tOrQnFlDlGFrfVW3u XYLqN9pkfBBeLVUqJNNc H3orIzTeaQ1siDskCHlk anOqODQsOW74JFvnyJTv zVKjeHT5FGQdfT2kTCVw NZIxEVZ5BIdnSU6cdWQi XHBhciBCLiBSZWNlaXZl XZEkdxTdn1XsLNjnpbxy VWYwpUdiJPBpFNIbCf0W o89exNQiwSZeMtehvVI0 IiwgXHBsYWluXGYxXGZz MjBcbGFuZzEwMzNcaGlj aFxmMVxkYmNoXGYxXGxv Z5avOdRnO5FaPQVkVpKo cHJvdGVjdHtcZmllbGR7 VCyzIaxraZ9gkSQCAPHF ZpxJNgvdpsXkLR1SLCPK CmCXAO60OwHeDAV9I9wy fXtcZmxkcnNsdCBcJzFj xO2idOmvyX1iDcPnLeEu DNpqXX3sQKJqP5adyEZg DMVfDFJyS7vwUvCloM7w aFxmMVxjZjJcZnMyMFxw ud76NPL5GKUrPBAeIOMj YWluXGYxXGZzMjBcbGFu ZzEwMzNcaGljaFxmMVxk RtOgGPDzDPtoI6hvKgEf M8OoKLSxLbJecQDexXQm oEkxEkfisTA8IFlzHpdq rG5quRYTYCGEIofUHnjy egNdEL6QYBGLLT9ZbFG5 VPCeeNC0K954CORhKQTs aZLpXIblN492PDQkNZab XGYxXGZzMjBcbGFuZzEw MzNcaGljaFxmMVxkYmNo FVAzVVbmU7rzQzDeKlAc ODYgsHKiAGHeWKwrMX54 BDPmTF9iASPnu2G6KGXc KSAarLFpizgsOM75YHjm QU57WYakJQ5nYVJnLDXb YWluXGYxXGZzMjBcbGFu ZzEwMzNcaGljaFxmMVxk EgRuTKAiXZmxJ0suDvXy S2RaRAGjTyGryYPnkBJz mLzwCvrxpHM1OCobFzde dU8iiGEASFKJCfpJWkmb cmVuCH9RBEEJPvMQHO16 VuWqKMN6FPkmfCpfUwfw anYqzGUtPoZixO5dbPgn dO4dUqVqOuSnNAiwWI9x AVTqU4wpmCJaDAPcOWPa B6wsIjBslY2fzPisQAcs McOoFcTkNLqqqb87JXX2 HSRstyLfJ9vmJNlwuCNi XHBsYWluXGYxXGZzMjBc bGFuZzEwMzNcaGljaFxm NMtzZqDfBVVkZJonD6wt ZxAtF5YtRWJqNkZpnEJz sBIzsWjfNmjdlAG6GEnm WujypA8nkAMCLSDMXilG GvemvsXkHD1VFFMRLR8L vGY0VMTgwBK2WO64RBLc ZAAafHUyEMdpW157YTCa YWluXGYxXGZzMjBcbGFu ZzEwMzNcaGljaFxmMVxk XkIgGMKkLBbzZ3znQyMt ZnMyMCAgIFRvdGFsbHkg e7ZrmDy5wOPyHGckDQCt D9Yev0K9hAMidlbqSQQc fzacEKZcC5GffPRaFDOd XHBsYWluXGYwXGZzMjRc uBzmrT0dYkYdUtCgMVqf KD9nERQxW0ujiGGdRTRs JMNbT2jmNoBptQ7egIvf WXitddFxQGggh6JgFCD6 BX6vikA6qN0iLOKldvVw dq8oXPIjoWsyJSQsw2Qs VAhbQTztc5XqyEYoDP0p KgD9RGvlTTPdbsCoFSD9 SR31AGIGWP1wBczdlPKx FS0XRLY0KRPwRGJwvbdw AUEwhpBEFOQANDnYC5Sr VFWVRGRAGQNtNcYNPW0j VmVbKBB5Gi1zVB8cIYU8 G4kmSAB7Tt3dSNL1RJpn VFUkIeZhFZT0NS6cIxqn H69GHlFEZGXHE27AVTEK CWBDP3UQEHWHXKrJH7CT JM0EDPLPLUFWBN9ZUBrB MzNHHWbUZ0WORV7LKWMQ ADVAIU2MKvRuFSnUQ0LX N8kKPFFwQQQNIFPUPJZt ZvFULU6hPxf5TNIrkK8f VTJgFYN0BaNsMWYhiHGd w3WBKHnoARChS8QeW2L9 CAcbZHK8E8k2L4t6SHYr wC0fRHEcOEM3XkLqESPz hEKmo3JBTRfzQXMmQ5Yx D5V6YOrqDPK7W7b2ESOB ZEEPEL2VFKVOP26XEJEF DBBAF0HLAGCVPbGSZHHB Z23FQRUCHISTB0MDV4jC JZLBMiCVFTQQQ36XXFPI ABJOB6GWLTCAHIRATaOS DaZQUS3HSYFGJDULCA4N UFvAFnHvQXBGL2PFZjZV J3ihBTDPUKNFAWByGH9E fQ== [facility] Pathology report microscopic observation Narrative Other stain k7mayXEqEVPtvRDeTbUf MFCyQUDhd3yiECDciDQw ZzEwMzNcZnRuYmpcdWMx MUPnAxXmj3hyo653tUTv x8umQMLvWyL7jZPcQJQi eJXnR906CYNnYIpqv5mz z3RiATMzcRAem5X0FAVO jvdqoLw5rDvzD04jr1U1 OtpaU9bjJPZqDNDjK4Co ZS0fWYPoLop1JSE3URF0 PTSyQETwI2JqZV2mZYPj vPXdJBd5c5idbGojFHVz BMY2g5mmOGktvoWwBK7h ol1ykDl8u5psqpAdWIXp SKHewKUDJXBiB2MmcFry Xl4mpXm2hBohZokaJAZ7 Cbm8IA1ero48wiy2xZev DJOiywncIpE9RHziIEWa epuzPJj3GNtnORFoeRY1 WDGgjTTxQ9ShZLZtWZ1f not1LKE4UTnrFCBnHlV5 NDBcaGVhZGVyeTcyMFxm a473HBQ6PyRfWJ1cG5Nv r2K1hM7paDIbHTJlqHJr ZyIqHNAqts9nnLVcBJun f0ZaSQR3gtH5wHBfwWPn CHPcBE60Cwigp2ZrSweh UBK1XLTzjbKyr2Xpf6mw RsVkkmBwQ5ugT2HbUPFf QTNvNPBiDuYasdJxc0Gc q6NafDSddGr9v9ocGAZg HXXkpZesy4huMTN8VDSv X8D0bVUko6gnUTsxCPUb nTD9scK3NGAuoHQoM8Go uY5wJSDqAO7uejn7p3jf FPP7QAagMEBrVlW1rdB3 NDBcaGVhZGVyeTcyMFxm w762FOW5NsCzADJkb0Wf E7KyjDohD96baKksO83s WTZeuAsggR9pkTonoC4r ZjBcZnMyNFxxbFxwbGFp blxmMVxmczIwXGxhbmcx PBSqXPruN8dpLjOsSVOf nAwaIZjvs0MmXAZkCFAv ZtEbETzoxg7qQ36vpAHf KYogsZmwHPPep08toXAf mLEoTu6maRXvGbxxUSR2 [facility] POC H. Pylori Teston 020 Internal Control Pass [facility] Lot Number [id number] [facility] POC H. Pylori Negative Negative [facility] BMPon 08-12-2019 Anion gap [Moles/Vol] 10 mmol/L 10 - 20 mmol/L [facility] Calcium [Mass/Vol] 9.2 mg/dL 8.4 - 10. 2 mg/dL [facility] Chloride [Moles/Vol] 102 mmol/L 98 - 108 mmol/L [facility] Creatinine [Mass/Vol] 0.97 mg/dL 0.5 - 1.3 mg/dL [facility] GFR/1.73 sq M predicted among non-blacks MDRD (S/P/Bld) [Vol rate/Area] The eGFR should be used for monitoring renal function only and not for medication dosing. [facility] GFR/1.73 sq M.predicted CKD-EPI (S/P/Bld) [Vol rate/Area] 100 >=60 mL/min/1.73 m2 [facility] Glucose [Mass/Vol] 95 mg/dL 65 - 99 mg/dL [facility] HCO3 [Moles/Vol] 26 mmol/L 21 - 32 mmol/L [facility] Interpretation and review of laboratory results Abnormal [facility] Potassium [Moles/Vol] 3.7 mmol/L 3.5 - 5.1 mmol/L [facility] Sodium [Moles/Vol] 134 mmol/L Low 135 - 145 mmol/L [facility] Urea nitrogen [Mass/Vol] 14 mg/dL 8 - 25 mg/dL [facility] Urea nitrogen/Creatinine [Mass ratio] 14.4 mg/mg [facility] CBC WITH AUTO DIFFERENTIALon 08-12-2019 Basophils (Bld) [#/Vol] 0.06 10*3/uL [facility] Basophils/100 WBC (Bld) 0.4 % [facility] Eosinophils (Bld) [#/Vol] 0.24 10*3/uL [facility] Eosinophils/100 WBC (Bld) 1.5 % [facility] Erythrocyte distribution width (RBC) [Entitic vol] 12.5 % 11.6 - 14.8 % [facility] Hematocrit (Bld) [Volume fraction] 45.0 % 41 - 53 % [facility] Hemoglobin (Bld) [Mass/Vol] 15.8 g/dL 13.5 - 17.5 g/dL [facility] Immature granulocytes (Bld) [#/Vol] 0.12 10*3/uL [facility] Immature granulocytes/100 WBC (Bld) 0.70 % [facility] Comment on above: The IG parameter is the percentage of metamyelocytes, myelocytes, and promyelocytes. Interpretation and review of laboratory results Abnormal [facility] Lymphocytes (Bld) [#/Vol] 2.40 10*3/uL [facility] Lymphocytes/100 WBC (Bld) 15.0 % [facility] MCH (RBC) [Entitic mass] 30.2 pg 26 - 34 pg [facility] MCHC (RBC) [Mass/Vol] 35.1 g/dL 31 - 37 g/dL [facility] MCV (RBC) [Entitic vol] 85.9 fL 80 - 100 fL [facility] Monocytes (Bld) [#/Vol] 1.71 10*3/uL High [facility] Monocytes/100 WBC (Bld) 10.7 % [facility] Neutrophils (Bld) [#/Vol] 11.51 10*3/uL High [facility] Neutrophils/100 WBC (Bld) 71.7 % [facility] Nucleated RBC (Bld) [#/Vol] 0.00 10*3/uL [facility] Nucleated RBC/100 WBC (Bld) [Ratio] 0.0 % [facility] Platelet mean volume (Bld) [Entitic vol] 10.6 fL 9 - 15.5 fL [facility] Platelets (Bld) [#/Vol] 385 10*3/uL [facility] RBC (Bld) [#/Vol] 5.24 10*6/uL [facility] WBC (Bld) [#/Vol] 16.04 10*3/uL [facility] CT PULMONARY ARTERIESon 07-21 EXAMINATION: CT PULMONARY ARTERIES HISTORY: Shortness of breath. TECHNIQUE: CT angiogram of the chest was performed after the uneventful intravenous administration of 75 mL of Isovue-370. Coronal and sagittal reformats and MIP images were performed. Dose reduction techniques were achieved by using automated exposure control and/or adjustment of mA and/or kV according to patient size and/or use of iterative reconstruction technique. COMPARISON: Chest radiograph dated 08/12/2019. FINDINGS: No pulmonary embolism. The pulmonary arteries are within normal limits in size. The thoracic aorta is normal in course and caliber. There is no aortic dissection. The heart is normal in size. No pericardial effusion. There is no focal consolidation, pleural effusion or pneumothorax. The central airways are patent. Calcifications in the right hilum and mediastinum are most consistent with old granulomatous disease. No acute abnormality in the visualized portions of the thyroid. No acute abnormality in the visualized portions of the upper abdomen. Calcifications in the spleen are most consistent with old granulomatous disease. No acute osseous abnormality. [facility], Rad In Tesfaye Ortizq - 08/12/2019 5:51 PM EST EXAMINATION: CT PULMONARY ARTERIES HISTORY: Shortness of breath. TECHNIQUE: CT angiogram of the chest was performed after the uneventful intravenous administration of 75 mL of Isovue-370. Coronal and sagittal reformats and MIP images were performed. Dose reduction techniques were achieved by using automated exposure control and/or adjustment of mA and/or kV according to patient size and/or use of iterative reconstruction technique. COMPARISON: Chest radiograph dated 08/12/2019. FINDINGS: No pulmonary embolism. The pulmonary arteries are within normal limits in size. The thoracic aorta is normal in course and caliber. There is no aortic dissection. The heart is normal in size. No pericardial effusion. There is no focal consolidation, pleural effusion or pneumothorax. The central airways are patent. Calcifications in the right hilum and mediastinum are most consistent with old granulomatous disease. No acute abnormality in the visualized portions of the thyroid. No acute abnormality in the visualized portions of the upper abdomen. Calcifications in the spleen are most consistent with old granulomatous disease. No acute osseous abnormality. IMPRESSION: 1. No pulmonary embolism. No aortic dissection or aneurysm. 2. No acute pulmonary parenchymal process. 3. Calcified sequelae of prior granulomatous disease. [facility] Workstation ID: [id number] [facility] 1. No pulmonary embolism. No aortic dissection or aneurysm. 2. No acute pulmonary parenchymal process. 3. Calcified sequelae of prior granulomatous disease. [facility] Workstation ID: [id number] [facility] CT PULMONARY ARTERIES EXAMINATION: CT PULMONARY ARTERIES HISTORY: Shortness of breath. TECHNIQUE: CT angiogram of the chest was performed after the uneventful intravenous administration of 75 mL of Isovue-370. Coronal and sagittal reformats and MIP images were performed. Dose reduction techniques were achieved by using automated exposure control and/or adjustment of mA and/or kV according to patient size and/or use of iterative reconstruction technique. COMPARISON: Chest radiograph dated 08/12/2019. FINDINGS: No pulmonary embolism. The pulmonary arteries are within normal limits in size. The thoracic aorta is normal in course and caliber. There is no aortic dissection. The heart is normal in size. No pericardial effusion. There is no focal consolidation, pleural effusion or pneumothorax. The central airways are patent. Calcifications in the right hilum and mediastinum are most consistent with old granulomatous disease. No acute abnormality in the visualized portions of the thyroid. No acute abnormality in the visualized portions of the upper abdomen. Calcifications in the spleen are most consistent with old granulomatous disease. No acute osseous abnormality. IMPRESSION: 1. No pulmonary embolism. No aortic dissection or aneurysm. 2. No acute pulmonary parenchymal process. 3. Calcified sequelae of prior granulomatous disease. [facility] Workstation ID: [id number] Dictated by: MILTON BELLE on TueAug 12, 2019 1:36:14 PM EST Transcribed by: AIDA PINK on TueAug 12, 2019 1:49:32 PM EST Finalized by: MILTON BELLE on TueAug 12, 2019 5:48:19 PM EST Normal [facility] Comment on above: Order Comment: Injur y/Trauma or Illness?:Illness/Other How long have you had these symptoms (acute/chronic)?:Acute Reason for exam?:cough, sob, dx pna recently finished all abx no relief Type of Exam?:Initial Additional signs and symptoms?:no ECG 12-LEADon 08-12-2019 Atrial Rate [facility] P Spade [facility] P-R Interval [facility] Q-T Interval [facility] Q-T Interval (corrected) [facility] QRS Duration [facility] QTC Calculation (Bezet) [facility] R Spade [facility] T Spade [facility] Ventricular Rate [facility] th INFLUENZA A,B RAPID MOLECULA Freddy 08-12-2019 FLUAV RNA CAMMY+probe Ql (Unsp spec) Not Detected Not Detected [facility] FLUBV RNA CAMMY+probe Ql (Unsp spec) Not Detected Not Detected [facility] Interpretation and review of laboratory results Normal [facility] Test Method: Nucleic Acid Amplification [facility] Lactic Acid, Plasmaon 2018 Interpretation and review of laboratory results Normal [facility] Lactate [Moles/Vol] 1.1 mmol/L 0.6 - 2 mmol/L [facility] NT Pro BNPon 08-12-2019 Interpretation and review of laboratory results Normal [facility] Natriuretic peptide.B prohormone N-Terminal [Mass/Vol] 20 pg/mL 0 - 300 pg/mL [facility] Comment on above: Please note referenc e range change as of 09/06/18. [employer] [facility] Cut-offs Rule In: < /= 50 Years >450 pg/mL 51 Years - 75 Years >900 pg/mL 76 Years - 99 Years >1800 pg/mL Rule Out: All patients <300 pg/mL [facility] TROPONINon 08-12-2019 Troponin I.cardiac [Mass/Vol] No biomarker evidence of cardiac injury. [facility] Troponin I.cardiac [Mass/Vol] ng/mL <=45 ng/L [facility] Troponin I.cardiac [Mass/Vol] Normal [facility] Troponin I.cardiac [Mass/Vol] ng/mL <=45 ng/L [facility] XR CHEST PA/APon 08-12-2019 XR CHEST PA/AP EXAMINATION: XR CHEST PA/AP 08/12/2019 12:07 pm HISTORY: ORDERING SYSTEM PROVIDED HISTORY: chest pain, TECHNOLOGIST PROVIDED HISTORY: Illness/Other Reason for exam: RECENT DX OF PNA, CONT COUGH Cancer History: na Surgery, RadiationHistory: na Encounter Type: Initial Additional signs and symptoms: NA ORDERING SYSTEM PROVIDED DIAGNOSIS CODES: COMPARISON: 08/02/2019 FINDINGS: Heart and vascularity are unremarkable. Lungs are hyperexpanded and free of focal infiltrates. EKG leads overlie the chest. IMPRESSION: No acute heart or lung disease identified. Workstation ID: [id number] Dictated by: FAITH REYNOSO on [place] Aug 12, 2019 12:21:42 PM EST Transcribed by: FAITH REYNOSO on [place] Aug 12, 2019 12:21:42 PM EST Finalized by: FAITH REYNOSO on Sun Aug 12, 2019 12:21:42 PM EST Normal [facility] Comment on above: Order Comment: Injur y/Trauma or Illness?:Illness/Other How long have you had these symptoms (acute/chronic)?:Chronic Reason for exam?:RECENT DX OF PNA, CONT COUGH History of cancer?:na Surgeries, chemotherapy, or radiation?:na Type of Exam?:Initial Additional signs and symptoms?:NA XR Chest 1 Viewon 08-12-2019 EXAMINATION: XR CHEST PA/AP 08/12/2019 12:07 pm HISTORY: ORDERING SYSTEM PROVIDED HISTORY: chest pain, TECHNOLOGIST PROVIDED HISTORY: Illness/Other Reason for exam: RECENT DX OF PNA, CONT COUGH Cancer History: na Surgery, RadiationHistory: na Encounter Type: Initial Additional signs and symptoms: ORDERING SYSTEM PROVIDED DIAGNOSIS CODES: COMPARISON: 08/02/2019 FINDINGS: Heart and vascularity are unremarkable. Lungs are hyperexpanded and free of focal infiltrates. EKG leads overlie the chest. [facility] No acute heart or lung disease identified. Workstation ID: [id number] [facility] Interface, [facility] - 08/12/2019 12:24 PM EST EXAMINATION: XR CHEST PA/AP 08/12/2019 12:07 pm HISTORY: ORDERING SYSTEM PROVIDED HISTORY: chest pain, TECHNOLOGIST PROVIDED HISTORY: Illness/Other Reason for exam: RECENT DX OF PNA, CONT COUGH Cancer History: na Surgery, RadiationHistory: na Encounter Type: Initial Additional signs and symptoms: ORDERING SYSTEM PROVIDED DIAGNOSIS CODES: COMPARISON: 08/02/2019 FINDINGS: Heart and vascularity are unremarkable. Lungs are hyperexpanded and free of focal infiltrates. EKG leads overlie the chest. IMPRESSION: No acute heart or lung disease identified. Workstation ID: [id number] [facility] XR CHEST AP/PA AND LATon XR CHEST AP/PA AND LAT CLINICAL HISTORY Cough and fever, wheezing and short of breath pneumonia due to infectious organism, unspecified laterality, unspecified part of lung J18.9 (ICD-10-CM) EXAMINATION: PA AND LATERAL CHEST: 08/02/2019. COMPARISON: None. FINDINGS: The visualized osseous structures, heart, mediastinum are normal. The aorta has normal contour. Lungs appear clear. There is no congestive heart failure or pneumothorax. IMPRESSION: Essentially normal chest. [facility] Workstation ID: [id number] Dictated by: AKASH REYES on TueAug 02, 2019 11:22:08 AM EST Transcribed by: SHIRA HERRERA on TueAug 02, 2019 11:30:45 AM EST Finalized by: AKASH REYES on TueAug 02, 2019 11:43:21 AM EST Normal [facility] Comment on above: Order Comment: Injur y/Trauma or Illness?:Illness/Other How long have you had these symptoms (acute/chronic)?:Acute Reason for exam?:cough x 4 weeks History of cancer?:na Surgeries, chemotherapy, or radiation?:na Type of Exam?:Initial Additional signs and symptoms?:Pt dx with pneumnoia in [place] yesterday Essentially normal chest. [place] Workstation ID: [id number] [facility] CLINICAL HISTORY Cough and fever, wheezing and short of breath pneumonia due to infectious organism, unspecified laterality, unspecified part of lung J18.9 (ICD-10-CM) EXAMINATION: PA AND LATERAL CHEST: 08/02/2019. COMPARISON: None. FINDINGS: The visualized osseous structures, heart, mediastinum are normal. The aorta has normal contour. Lungs appear clear. There is no congestive heart failure or pneumothorax. [facility] Interface, Rad In [facility] - 08/02/2019 11:46 AM EST CLINICAL HISTORY Cough and fever, wheezing and short of breath pneumonia due to infectious organism, unspecified laterality, unspecified part of lung J18.9 (ICD-10-CM) EXAMINATION: PA AND LATERAL CHEST: 08/02/2019. COMPARISON: None. FINDINGS: The visualized osseous structures, heart, mediastinum are normal. The aorta has normal contour. Lungs appear clear. There is no congestive heart failure or pneumothorax. IMPRESSION: Essentially normal chest. [place] Workstation ID: [id number] [facility] Vital Signs Date Time Vital Sign Value Performing Clinician Facility 04-11-2025 12:25-0400 Diastolic blood pressure 76 mm[Hg] Dr. Sean Domínguez MD Work Phone: [facility] 04-11-2025 12:25-0400 Respiratory rate 18 /min Dr. Sean Domínguez MD Work Phone: [facility] 04-11-2025 12:25-0400 SaO2% (BldA) [Mass fraction] 94 % Dr. Sean Domínguez MD Work Phone: [facility] 04-11-2025 12:25-0400 Systolic blood pressure 108 mm[Hg] Dr. Sean Domínguez MD Work Phone: [facility] 04-11-2025 12:20-0400 Body temperature 97.8 [degF] Dr. Sean Domínguez MD Work Phone: [facility] 04-11-2025 12:20-0400 Heart rate 88 /min Dr. Sean Domínguez MD Work Phone: [facility] 04-11-2025 10:28-0400 Body height 180.[address] Sean Domínguez MD Work Phone: [facility] 04-11-2025 10:28-0400 Body mass index (BMI) [Ratio] 24.4 kg/m2 Dr. Sean Domínguez MD Work Phone: [facility] 04-11-2025 10:28-0400 Body weight 79.[address] Sean Domínguez MD Work Phone: [facility] 01-31-2025 07:58-0400 Body mass index (BMI) [Ratio] 25.18 kg/m2 Naty Sutherland CNP Work Phone: [facility] 01-31-2025 07:58-0400 Body temperature 98.1 [degF] Naty Sutherland CNP Work Phone: [facility] 01-31-2025 07:58-0400 Body weight 80.74 kg Naty Sutherland CNP Work Phone: [facility] 01-31-2025 07:58-0400 Diastolic blood pressure 60 mm[Hg] Naty Sutherland CNP Work Phone: [facility] 01-31-2025 07:58-0400 Heart rate 71 /min Naty Sutherland CNP Work Phone: [facility] 01-31-2025 07:58-0400 Respiratory rate 16 /min Naty Sutherland CNP Work Phone: [facility] 01-31-2025 07:58-0400 SaO2% (BldA) [Mass fraction] 97 % Naty Sutherland ACCOUNTING ADMINISTRATIVE ASSISTANT Work Phone: [facility] 01-31-2025 07:58-0400 Systolic blood pressure 100 mm[Hg] Naty Sutherland ACCOUNTING ADMINISTRATIVE ASSISTANT Work Phone: [facility] 08-20-2024 08:29-0500 Body mass index (BMI) [Ratio] 25.54 kg/m2 Tabitha Gee MD Work Phone: [facility] 08-20-2024 08:29-0500 Body weight 80.74 kg Tabitha Gee MD Work Phone: [facility] 08-20-2024 08:29-0500 Diastolic blood pressure 84 mm[Hg] Tabitha Gee MD Work Phone: [facility] 08-20-2024 08:29-0500 Heart rate 77 /min Tabitha Gee MD Work Phone: [facility] 08-20-2024 08:29-0500 Respiratory rate 16 /min Tabitha Gee MD Work Phone: [facility] 08-20-2024 08:29-0500 Systolic blood pressure 141 mm[Hg] Tabitha Gee MD Work Phone: [facility] 07-23-2024 11:24-0500 Body height 179.1 cm Sean Domínguez DO Work Phone: [facility] 07-23-2024 11:24-0500 Body mass index (BMI) [Ratio] 24.77 kg/m2 Sean Domínguez DO Work Phone: [facility] 07-23-2024 11:24-0500 Body temperature 98.2 [degF] Sean Domínguez DO Work Phone: [facility] 07-23-2024 11:24-0500 Body weight 79.42 kg Sean Domínguez DO Work Phone: [facility] 07-23-2024 11:24-0500 Diastolic blood pressure 66 mm[Hg] Sean Domínguez DO Work Phone: [facility] 07-23-2024 11:24-0500 Heart rate 72 /min Sean Domínguez DO Work Phone: [facility] 07-23-2024 11:24-0500 Respiratory rate 14 /min Sean Domínguez DO Work Phone: [facility] 07-23-2024 11:24-0500 Systolic blood pressure 110 mm[Hg] Sean Domínguez DO Work Phone: [facility] 07-01-2023 10:32-0400 Body height 179.1 cm Sean Hansonwell DO Work Phone: [facility] 07-01-2023 10:32-0400 Body mass index (BMI) [Ratio] 23.48 kg/m2 Sean Hansonwell DO Work Phone: [facility] 07-01-2023 10:32-0400 Body temperature 98.71 [degF] Sean Domínguez DO Work Phone: [facility] 07-01-2023 10:32-0400 Body weight 75.3 kg Sean Domínguez DO Work Phone: [facility] 07-01-2023 10:32-0400 Diastolic blood pressure 56 mm[Hg] Sean Hansonwell DO Work Phone: [facility] 07-01-2023 10:32-0400 Heart rate 72 /min Sean Domínguez DO Work Phone: [facility] 07-01-2023 10:32-0400 Respiratory rate 17 /min Sean Domínguez DO Work Phone: [facility] 07-01-2023 10:32-0400 SaO2% (BldA) [Mass fraction] 98 % Sean Hansonwell DO Work Phone: [facility] 07-01-2023 10:32-0400 Systolic blood pressure 126 mm[Hg] Sean [place] DO Work Phone: [facility] 01-31-2023 23:20-0400 Diastolic blood pressure 62 mm[Hg] Nav Lara DO Work Phone: [facility] 01-31-2023 23:20-0400 Heart rate 79 /min Nav Lara DO Work Phone: [facility] 01-31-2023 23:20-0400 Respiratory rate 18 /min Nav Lara DO Work Phone: [facility] 01-31-2023 23:20-0400 SaO2% (BldA) [Mass fraction] 97 % Nav Lara DO Work Phone: [facility] 01-31-2023 23:20-0400 Systolic blood pressure 118 mm[Hg] Nav Lara DO Work Phone: [facility] 01-31-2023 22:32-0400 Body temperature 97.11 [degF] Nav Lara DO Work Phone: [facility] 01-31-2023 09:16-0400 Body height 180.3 cm Nav Lara DO Work Phone: [facility] 01-31-2023 08:53-0400 Body height 180.3 cm Lorraine Lara STORY EDITOR-ACCOUNTING ADMINISTRATIVE ASSISTANT Work Phone: [facility] 01-31-2023 08:53-0400 Body mass index (BMI) [Ratio] 23.57 kg/m2 Lorrainecezar Lara STORY EDITOR-ACCOUNTING ADMINISTRATIVE ASSISTANT Work Phone: [facility] 01-31-2023 08:53-0400 Body temperature 97.81 [degF] Lorraine Lara STORY EDITOR-ACCOUNTING ADMINISTRATIVE ASSISTANT Work Phone: [facility] 01-31-2023 08:53-0400 Body weight 76.66 kg Lorrainecezar Lara STORY EDITOR-ACCOUNTING ADMINISTRATIVE ASSISTANT Work Phone: [facility] 01-31-2023 08:53-0400 Diastolic blood pressure 66 mm[Hg] Lorraine Lara STORY EDITOR-ACCOUNTING ADMINISTRATIVE ASSISTANT Work Phone: [facility] 01-31-2023 08:53-0400 Heart rate 70 /min Lorraine Lara APRN-ACCOUNTING ADMINISTRATIVE ASSISTANT Work Phone: [facility] 01-31-2023 08:53-0400 Respiratory rate 22 /min Lorraine Lara APRN-ACCOUNTING ADMINISTRATIVE ASSISTANT Work Phone: [facility] 01-31-2023 08:53-0400 SaO2% (BldA) [Mass fraction] 97 % Lorraine Lara APRN-ACCOUNTING ADMINISTRATIVE ASSISTANT Work Phone: [facility] 01-31-2023 08:53-0400 Systolic blood pressure 124 mm[Hg] Lorraine Lara APRN-ACCOUNTING ADMINISTRATIVE ASSISTANT Work Phone: [facility] 01-07-2023 11:31-0400 Body height 177.8 cm Mary Oliva APRNTristonACCOUNTING ADMINISTRATIVE ASSISTANT Work Phone: [facility] [employer] [facility] 01-07-2023 11:31-0400 Body mass index (BMI) [Ratio] 24.82 kg/m2 Mary Oliva APRN-ACCOUNTING ADMINISTRATIVE ASSISTANT Work Phone: [facility] [employer] [facility] 01-07-2023 11:31-0400 Body temperature 98.1 [degF] Mary BALDERRAMAACCOUNTING ADMINISTRATIVE ASSISTANT Work Phone: [facility] [employer] [facility] 01-07-2023 11:31-0400 Body weight 78.47 kg Mary Oliva APRNTristonACCOUNTING ADMINISTRATIVE ASSISTANT Work Phone: [facility] [employer] [facility] 01-07-2023 11:31-0400 Diastolic blood pressure 64 mm[Hg] Mary Oliva APRN-ACCOUNTING ADMINISTRATIVE ASSISTANT Work Phone: [facility] [employer] [facility] 01-07-2023 11:31-0400 Heart rate 65 /min Mary Oliva APRN-ACCOUNTING ADMINISTRATIVE ASSISTANT Work Phone: [facility] [employer] [facility] 01-07-2023 11:31-0400 Respiratory rate 18 /min Mary Oliva APRN-ACCOUNTING ADMINISTRATIVE ASSISTANT Work Phone: [facility] [employer] [facility] 01-07-2023 11:31-0400 SaO2% (BldA) [Mass fraction] 98 % Mary Oliva APRN-ACCOUNTING ADMINISTRATIVE ASSISTANT Work Phone: [facility] 01-07-2023 11:31-0400 Systolic blood pressure 117 mm[Hg] Mary Pj STORY EDITOR-ACCOUNTING ADMINISTRATIVE ASSISTANT Work Phone: [facility] 10-06-2022 08:05-0500 Body height 179.1 cm Deep Stapleton MD Work Phone: [facility] 10-06-2022 08:05-0500 Body mass index (BMI) [Ratio] 24.16 kg/m2 Deep Stapleton MD Work Phone: [facility] 10-06-2022 08:05-0500 Body weight 77.47 kg Deep Stapleton MD Work Phone: [facility] 10-06-2022 08:05-0500 Diastolic blood pressure 74 mm[Hg] Deep Stapleton MD Work Phone: [facility] 10-06-2022 08:05-0500 Heart rate 86 /min Deep Stapleton MD Work Phone: [facility] 10-06-2022 08:05-0500 SaO2% (BldA) [Mass fraction] 98 % Deep Stapleton MD Work Phone: [facility] 10-06-2022 08:05-0500 Systolic blood pressure 129 mm[Hg] Deep Stapleton MD Work Phone: [facility] 09-15-2022 12:22-0500 Body height 177.8 cm Sean Domínguez DO Work Phone: [facility] 09-15-2022 12:21-0500 Diastolic blood pressure 76 mm[Hg] Sean Domínguez DO Work Phone: [employer] [facility] 09-15-2022 12:21-0500 Heart rate 79 /min Sean Domínguez DO Work Phone: [facility] 09-15-2022 12:21-0500 Respiratory rate 20 /min Sean Domínguez DO Work Phone: [facility] 09-15-2022 12:21-0500 SaO2% (BldA) [Mass fraction] 98 % Sean Domínguez DO Work Phone: [facility] 09-15-2022 12:21-0500 Systolic blood pressure 125 mm[Hg] Sean Domínguez DO Work Phone: [facility] 06-25-2022 07:54-0400 Body height 172.7 cm Sean Dmoínguez DO Work Phone: [facility] 06-25-2022 07:54-0400 Body mass index (BMI) [Ratio] 26.26 kg/m2 Sean Domínguez DO Work Phone: [facility] 06-25-2022 07:54-0400 Body temperature 98.1 [degF] Sean Domínguez DO Work Phone: [facility] 06-25-2022 07:54-0400 Body weight 78.34 kg Sean Domínguez DO Work Phone: [facility] 06-25-2022 07:54-0400 Diastolic blood pressure 76 mm[Hg] Sean Domínguez DO Work Phone: [facility] 06-25-2022 07:54-0400 Heart rate 70 /min Sean Domínguez DO Work Phone: [facility] 06-25-2022 07:54-0400 Respiratory rate 16 /min Sean Domínguez DO Work Phone: [facility] 06-25-2022 07:54-0400 Systolic blood pressure 112 mm[Hg] Sean Domínguez DO Work Phone: [facility] 10-22-2021 09:00-0500 Body mass index (BMI) [Ratio] 24.39 kg/m2 Alexander Perry MD Work Phone: [facility] 10-22-2021 09:00-0500 Body weight 77.11 kg Alexander Perry MD Work Phone: [facility] 10-22-2021 08:59-0500 Body temperature 98.91 [degF] Alexander Perry MD Work Phone: [employer] 10-22-2021 08:59-0500 Diastolic blood pressure 66 mm[Hg] Alexander Perry MD Work Phone: [employer] 10-22-2021 08:59-0500 Heart rate 84 /min Alexander Perry MD Work Phone: [employer] [facility] 10-22-2021 08:59-0500 Respiratory rate 22 /min Alexander Perry MD Work Phone: [employer] 10-22-2021 08:59-0500 SaO2% (BldA) [Mass fraction] 99 % Alexander Perry MD Work Phone: [employer] [facility] 10-22-2021 08:59-0500 Systolic blood pressure 114 mm[Hg] Alexander Perry MD Work Phone: [employer] [facility] 06-19-2021 11:52-0400 Body height 172.7 cm Sean Domínguez DO Work Phone: [facility] 06-19-2021 11:52-0400 Body mass index (BMI) [Ratio] 26.85 kg/m2 Sean Domínguez DO Work Phone: [facility] 06-19-2021 11:52-0400 Body temperature 98.49 [degF] Sean Domínguez DO Work Phone: [facility] 06-19-2021 11:52-0400 Body weight 80.11 kg Sean Domínguez DO Work Phone: [facility] 06-19-2021 11:52-0400 Diastolic blood pressure 75 mm[Hg] Sean Domínguez DO Work Phone: [facility] 06-19-2021 11:52-0400 Heart rate 75 /min Sean Domínguez DO Work Phone: [facility] 06-19-2021 11:52-0400 Respiratory rate 16 /min Sean Domínguez DO Work Phone: [facility] 06-19-2021 11:52-0400 SaO2% (BldA) [Mass fraction] 96 % Sean Domínguez DO Work Phone: [facility] 06-19-2021 11:52-0400 Systolic blood pressure 117 mm[Hg] Sean Doímnguez DO Work Phone: [facility] 08-02-2020 11:34-0500 BMI (Body Mass Index) 25.09 kg/m2 [facility] 08-02-2020 11:34-0500 Body Temperature 98.29 [degF] [facility] 08-02-2020 11:34-0500 Body weight 74.84 kg [facility] 08-02-2020 11:34-0500 Height 172.7 cm [facility] 08-02-2020 11:34-0500 Pulse (Heart Rate) 76 /min [facility] 08-02-2020 11:34-0500 Pulse Oximetry 98 % [facility] 07-31-2020 14:48-0500 BMI (Body Mass Index) 25.09 kg/m2 [facility] 07-31-2020 14:48-0500 Body weight 74.84 kg [facility] 07-31-2020 14:48-0500 Height 172.7 cm [facility] 02-13-2020 08:32-0400 BMI (Body Mass Index) 23.47 kg/m2 [facility] 02-13-2020 08:32-0400 Body weight 74.21 kg [facility] 02-13-2020 08:32-0400 BP Diastolic 73 mm[Hg] [facility] 02-13-2020 08:32-0400 BP Systolic 119 mm[Hg] [facility] 02-13-2020 08:32-0400 Height 177.8 cm [facility] 02-13-2020 08:32-0400 Pulse (Heart Rate) 79 /min [facility] 02-13-2020 08:32-0400 Pulse Oximetry 93 % [facility] 01-25-2020 10:00-0400 BP Diastolic 66 mm[Hg] [facility] 01-25-2020 10:00-0400 BP Systolic 116 mm[Hg] [facility] 01-25-2020 10:00-0400 Pulse (Heart Rate) 70 /min [facility] 01-25-2020 10:00-0400 Pulse Oximetry 98 % [facility] 01-25-2020 10:00-0400 Respiratory Rate 18 /min [facility] 01-25-2020 08:04-0400 BMI (Body Mass Index) 23.46 kg/m2 [facility] 01-25-2020 08:04-0400 Body Temperature 97.5 [degF] [facility] 01-25-2020 08:04-0400 Body weight 74.16 kg [facility] 01-25-2020 08:04-0400 Height 177.8 cm [facility] 11-21-2019 13:53-0500 BMI (Body Mass Index) 25.25 kg/m2 [facility] 11-21-2019 13:53-0500 Body Temperature 98.49 [degF] [facility] 11-21-2019 13:53-0500 Body weight 77.56 kg [facility] 11-21-2019 13:53-0500 BP Diastolic 69 mm[Hg] [facility] 11-21-2019 13:53-0500 BP Systolic 113 mm[Hg] [facility] 11-21-2019 13:53-0500 Height 175.3 cm [facility] 11-21-2019 13:53-0500 Pulse (Heart Rate) 94 /min [facility] 11-21-2019 13:53-0500 Pulse Oximetry 95 % [facility] 10-26-2019 08:59-0500 BMI (Body Mass Index) 25.49 kg/m2 Sean [place] [facility] 10-26-2019 08:59-0500 Body Temperature 98.49 [degF] Sean Domínguez [facility] 10-26-2019 08:59-0500 Body weight 78.29 kg Sean Domínguez [facility] 10-26-2019 08:59-0500 BP Diastolic 64 mm[Hg] Sean Domínguez [facility] 10-26-2019 08:59-0500 BP Systolic 108 mm[Hg] Sean Domínguez [facility] 10-26-2019 08:59-0500 Height 175.3 cm Sean Domínguez [facility] 10-26-2019 08:59-0500 Pulse (Heart Rate) 70 /min Sean Domínguez [facility] 10-26-2019 08:59-0500 Respiratory Rate 14 /min Sean Domínguez [facility] 08-12-2019 14:51-0500 Pulse Oximetry 95 % [facility] 08-12-2019 14:00-0500 BP Diastolic 74 mm[Hg] [facility] 08-12-2019 14:00-0500 BP Systolic 134 mm[Hg] [facility] 08-12-2019 14:00-0500 Pulse (Heart Rate) 99 /min [facility] 08-12-2019 14:00-0500 Respiratory Rate 16 /min [facility] 08-12-2019 11:59-0500 BMI (Body Mass Index) 24.37 kg/m2 [facility] 08-12-2019 11:59-0500 Body Temperature 98.1 [degF] [facility] 08-12-2019 11:59-0500 Body weight 74.84 kg [facility] 08-12-2019 11:59-0500 Height 175.3 cm [facility] 08-12-2019 09:53-0500 BMI (Body Mass Index) 24.37 kg/m2 [facility] 09:53-0500 Body Temperature 98.2 [degF] [facility] 08-12-2019 09:53-0500 Body weight 74.84 kg Jorge A Mcconnell [facility] 08-12-2019 09:53-0500 BP Diastolic 77 mm[Hg] Jorge A Mcconnell [facility] 08-12-2019 09:53-0500 BP Systolic 110 mm[Hg] Jorge A Mcconnell [facility] 08-12-2019 09:53-0500 Height 175.3 cm Jorge A Mcconnell [facility] 08-12-2019 09:53-0500 Pulse (Heart Rate) 91 /min Jorge A Mcconnell [facility] 08-12-2019 09:53-0500 Pulse Oximetry 98 % Jorge A Mcconnell [facility] 08-12-2019 09:53-0500 Respiratory Rate 18 /min Jorge A Mcconnell [facility] 08-02-2019 11:21-0500 Pulse Oximetry 98 % [facility] Comment on above: post neb tx [facility] 08-02-2019 11:21-0500 Respiratory Rate 18 /min Zia [facility] 08-02-2019 10:36-0500 BMI (Body Mass Index) 22.96 kg/m2 [facility] 08-02-2019 10:36-0500 Body Temperature 98.01 [degF] Zia [facility] 08-02-2019 10:36-0500 Body weight 72.58 kg [facility] 08-02-2019 10:36-0500 BP Diastolic 76 mm[Hg] [facility] 08-02-2019 10:36-0500 BP Systolic 123 mm[Hg] [facility] 08-02-2019 10:36-0500 Height 177.8 cm [facility] 08-02-2019 10:36-0500 Pulse (Heart Rate) 81 /min [facility] 01-19-2019 10:58-0400 BMI (Body Mass Index) 23.82 kg/m2 Sean [facility] 01-19-2019 10:58-0400 Body Temperature 98.4 [degF] Sean [facility] 01-19-2019 10:58-0400 BP Diastolic 70 mm[Hg] Sean [facility] 01-19-2019 10:58-0400 BP Systolic 118 mm[Hg] Sean [facility] 01-19-2019 10:58-0400 Height 177.8 cm Sean [facility] 01-19-2019 10:58-0400 Pulse (Heart Rate) 60 /min Sean [facility] 01-19-2019 10:58-0400 Respiratory Rate 16 /min Sean [facility] 01-19-2019 10:58-0400 Weight 75.3 kg Sean [facility] 08-02-2018 11:38-0500 BMI (Body Mass Index) 23.73 kg/m2 Sean [facility] 08-02-2018 11:38-0500 Body Temperature 98.2 [degF] [facility] 08-02-2018 11:38-0500 BP Diastolic 73 mm[Hg] Sean Domínguez [facility] 08-02-2018 11:38-0500 BP Systolic 116 mm[Hg] Sean Domínguez [facility] 08-02-2018 11:38-0500 Height 177.8 cm Sean Domínguez [facility] 08-02-2018 11:38-0500 Pulse (Heart Rate) 71 /min Sean Domínguez [facility] 08-02-2018 11:38-0500 Pulse Oximetry 96 % Sean Domínguez [facility] 08-02-2018 11:38-0500 Respiratory Rate 16 /min Sean Domínguez [facility] 08-02-2018 11:38-0500 Weight 75.03 kg Sean Domínguez [facility] Encounters Encounter Date Encounter Type Care Provider Facility Start: 04-11-2025 ambulatory Sean Domínguez Facility :[facility] Start: 04-11-2025 Non-patient / Non-visit Melquiades Story nd DO -[facility] Start: 04-11-2025 End: 04-11-2025 Admission to same day surgery center Melquiades Ng DO -Endoscopy Work Phone: Start: 04-11-2025 End: 04-11-[address] Sean Domínguez MD Work Phone: -Endoscopy Start: 02-15-2025 End: 02-15-2025 Patient encounter procedure Concepcion Swan [place] -[facility] Work Phone: Start: 02-15-2025 End: 02-15-[address] Sean Domínguez MD Work Phone: [facility] Work Phone: Start: 02-15-2025 End: 02-15-2025 ambulatory Concepcion Swan Facility:[facility] Start: 02-05-2025 End: 02-05-2025 Orders Only Naty Sutherland CNP Work Phone: [facility] Comment on above: Eosinophilic esophag itis (Primary Dx) Start: 02-04-2025 End: 04-06-2025 Follow-up encounter Naty Sutherland CNP Work Phone: [facility] Comment on above: Lipid Panel, Compreh ensive Metabolic Panel, Hemoglobin A1c, CBC Auto Differential Start: 01-31-2025 End: 01-31-2025 Patient encounter status Naty Sutherland ACCOUNTING ADMINISTRATIVE ASSISTANT Work Phone: [facility] Start: 01-31-2025 End: 01-31-2025 Periodic preventive med est patient 40-64yrs Naty Sutherland ACCOUNTING ADMINISTRATIVE ASSISTANT Work Phone: [facility] Comment on above: Preventative health care (Primary Dx); History of amputation of right foot (HCC); Eosinophilic esophagitis Start: 01-31-2025 End: 01-31-2025 ambulatory NATY SUTHERLAND [facility] Start: 09-20-2024 ambulatory SEAN DOMÍNGUEZ [facility] Start: 09-17-2024 End: 09-17-2024 Office outpatient visit 15 minutes Tabitha Gee MD Work Phone: [facility] Comment on above: BPH associated with nocturia; Nocturia; Urinary frequency Start: 09-17-2024 End: 09-17-2024 ambulatory [facility] Start: 08-20-2024 End: 08-20-2024 Office outpatient visit 25 minutes Tabitha Gee MD Work Phone: [facility] Comment on above: BPH associated with nocturia; Urinary frequency; Nocturia; Retention of urine Start: 08-20-2024 End: 08-20-2024 ambulatory [facility] Start: 07-23-2024 End: 07-23-2024 Patient encounter status Sean Domínguez DO Work Phone: [facility] Start: 07-23-2024 End: 07-23-2024 Periodic preventive med est patient 40-64yrs Sean Domínguez DO Work Phone: [facility] Comment on above: Routine general medi callum examination at a health care facility (Primary Dx); History of amputation of right foot (HCC); Hx of cold sores; Acute bilateral low back pain without sciatica; Urinary frequency Start: 07-23-2024 End: 07-23-2024 ambulatory SEAN DOMÍNGUEZ [facility] Start: 07-23-2024 End: 07-23-2024 Encounter for general adult medical examination without abnormal findings SEAN DOMÍNGUEZ [facility] Start: 07-01-2023 End: 07-01-2023 Patient encounter status Sean Domínguez DO Work Phone: [facility] Work Phone: Start: 07-01-2023 End: 07-01-2023 Periodic preventive med est patient 40-64yrs Sean Mallory Domínguez DO Work Phone: [facility] Comment on above: Routine general medi callum examination at a health care facility (Primary Dx); Acute foot pain, right Start: 05-16-[address] Sean Whitt Facility:[id number] Start: 02-09-2023 ambulatory [facility] Start: 01-31-2023 End: 02-01-2023 Emergency department patient visit [facility] Start: 01-31-2023 ambulatory SEAN DOMÍNGUEZ [facility] Start: 01-31-2023 End: 01-31-2023 Emergency department patient visit [facility] Work Phone: [facility] Comment on above: Appendicitis Start: 01-31-2023 End: 01-31-2023 Office outpatient visit 15 minutes Lorraine Lara STORY EDITOR-ACCOUNTING ADMINISTRATIVE ASSISTANT [facility] Comment on above: RLQ abdominal pain ( Primary Dx) Start: 01-07-2023 ambulatory SELF SELF [facility] Start: 01-07-2023 End: 01-07-2023 Office outpatient new 20 minutes Mary Oliva STORY EDITOR-ACCOUNTING ADMINISTRATIVE ASSISTANT Work Phone: [facility] Comment on above: Non-recurrent acute suppurative otitis media of left ear without spontaneous rupture of tympanic membrane (Primary Dx); ETD (Eustachian tube dysfunction), bilateral Start: 10-08-2022 Documentation procedure Ricarda Holman RN [facility] Comment on above: dupixent prior auth Start: 10-06-2022 End: 10-06-2022 Office outpatient visit 15 minutes Deep Stapleton MD Work Phone: [facility] Comment on above: Eosinophilic esophag itis (Primary Dx) Start: 09-15-2022 End: 09-15-2022 Emergency department patient visit SEAN DOMÍNGUEZ [facility] Start: 09-15-2022 End: 09-15-2022 Emergency department patient visit Sean Domínguez DO Work Phone: [facility] Start: 06-25-2022 End: 06-25-2022 Patient encounter status Sean Domínguez DO Work Phone: [facility] Start: 06-25-2022 End: 06-25-2022 Periodic preventive med est patient 18-39 yrs Sean Domínguez DO Work Phone: [facility] Comment on above: Routine general medi callum examination at a health care facility (Primary Dx); Acute foot pain, right Start: 10-22-2021 End: 10-22-2021 Emergency department patient visit Alexander Perry MD Work Phone: [facility] Start: 06-19-2021 End: 06-19-2021 Patient encounter status Sean Domínguez DO Work Phone: [facility] Start: 06-19-2021 End: 06-19-2021 Periodic preventive med est patient 18-39 yrs Sean Domínguez DO Work Phone: [facility] Comment on above: Routine general medi callum examination at a health care facility (Primary Dx); Acute foot pain, right Start: 08-02-2020 End: 08-02-2020 Patient encounter procedure SEAN DOMÍNGUEZ [facility] Start: 08-02-2020 End: 08-02-2020 Office outpatient visit 25 minutes Manuelito Anderson Work Phone: [facility] [place] Comment on above: Upper respiratory tr act infection, unspecified type (Primary Dx) Start: 07-31-2020 End: 07-31-2020 Patient encounter procedure SEAN DOMÍNGUEZ [facility] Start: 07-31-2020 End: 07-31-2020 Patient encounter procedure Glenis North Work Phone: [facility] Comment on above: Upper respiratory tr act infection, unspecified type (Primary Dx); Cough Start: 02-13-2020 End: 02-13-2020 Office outpatient visit 15 minutes Senoia Herberth [facility]leton [facility] Comment on above: Eosinophilic esophag itis (Primary Dx) Start: 01-25-2020 End: 01-25-2020 Patient encounter procedure [facility] Start: 01-25-2020 End: 01-25-2020 Subsequent hospital visit by physician Deep Stapleton Work Phone: [facility] Comment on above: Pharyngoesophageal d ysphagia; Heartburn; Gaseous regurgitation; Pharyngoesophageal dysphagia; Heartburn; Gaseous regurgitation; Eosinophilic esophagitis Start: 01-22-2020 End: 01-22-2020 Patient encounter procedure [facility] Start: 11-21-2019 End: 11-21-2019 Office outpatient new 45 minutes Sean Domínguez Work Phone: [facility] Comment on above: Pharyngoesophageal d ysphagia (Primary Dx); Heartburn; Gaseous regurgitation Start: 10-26-2019 End: 10-26-2019 Office outpatient visit 25 minutes Sean Domínguez Work Phone: [facility] Comment on above: Dysphagia, unspecifi ed type (Primary Dx) Start: 08-13-2019 Follow-up encounter Anitha Mckeon [facility] Comment on above: ED Follow-up Start: 08-13-2019 End: 08-13-2019 Patient encounter procedure Anitha Mckeon [facility] Start: 08-12-2019 End: 08-12-2019 Emergency department patient visit JORGE A HARTLEY [facility] Start: 08-12-2019 End: 08-12-2019 Emergency department patient visit Jose Kenney Work Phone: [facility] Comment on above: SOB (shortness of br eath) (Primary Dx); Wheezing Start: 08-12-2019 End: 08-12-2019 Patient encounter procedure SEAN DOMÍNGUEZ [facility] Start: 08-12-2019 End: 08-12-2019 Office outpatient visit 15 minutes Jorge A Hartley Hebert Work Phone: [facility] Comment on above: Chest pressure (Prim mandi Dx); Lower respiratory infection (e.g., bronchitis, pneumonia, pneumonitis, pulmonitis); Other acute sinusitis, recurrence not specified; Dizziness; Shortness of breath; Abnormal EKG Start: 08-02-2019 End: 08-06-2019 Patient encounter procedure ZIA PORTER [facility] Start: 08-02-2019 End: 08-02-2019 Office outpatient visit 15 minutes Zia Porter Work Phone: [facility] Comment on above: Pneumonia due to inf ectious organism, unspecified laterality, unspecified part of lung (Primary Dx); Acute lower respiratory tract infection Start: 01-19-2019 End: 01-19-2019 Patient encounter procedure SEAN DOMÍNGUEZ [facility] Start: 01-19-2019 End: 01-19-2019 Office outpatient visit 15 minutes Sean Domínguez Work Phone: [facility] Comment on above: History of amputatio n of right foot (HCC) (Primary Dx) Start: 08-02-2018 End: 08-02-2018 Patient encounter procedure SEAN DOMÍNGUEZ [facility] Start: 08-02-2018 End: 08-02-2018 Office outpatient visit 15 minutes Sean Domínguez Work Phone: [facility] Comment on above: Paronychia of great toe of left foot (Primary Dx) Procedures Date Procedure Procedure Detail Performing Clinician Start: 04-11-[address] Sean burgess MD Work Phone: Start: 02-15-[address] Sean Domínguez MD Work Phone: Start: 02-15-[address] Sean Domínguez MD Work Phone: Start: 02-15-2025 Shrimp DERIK Domínguez MD Work Phone: Start: 01-31-2025 Lipid 1996 panel - Serum or Plasma Lucie Mcnulty CNP Work Phone: Start: 08-20-2024 MEASURE POST VOID RESIDUAL Tabitha Gurrola Work Phone: Start: 08-20-2024 Urnls dip stick/tablet rgnt auto w/o microscopy Tabitha Gee MD Work Phone: Start: 01-31-2023 Ct abdomen & pelvis w/contrast material Dominique Mello PA-C Work Phone: Start: 01-31-2023 Urinalysis, reagent strip without microscopy Dominique Mello PA-C Work Phone: Start: 01-31-2023 Albumin serum plasma/whole blood Dominique Mello PA-C Work Phone: Start: 01-31-2023 Complete blood count with white cell differential, automated Dominique Will Funmilayo PA-C Work Phone: Start: 06-25-2022 Comprehensive metabolic panel Sean Whitt DO Work Phone: Start: 06-25-2022 Lipid panel Sean Domínguez DO Work Phone: Start: 06-25-2022 Lipid 1996 panel - Serum or Plasma Khalif Domínguez DO Work Phone: Start: 10-22-2021 Radex spine lumbosacral minimum 4 views Alexander Perry MD Work Phone: Start: 08-02-2020 COVID-19, MOLECULAR Manuelito Anderson Work Phone: Start: 01-25-2020 Cul bact aerobic addl meths definitive ea isol Deep Stapleton Work Phone: Start: 01-25-2020 Procedure on tissue specimen Deep Stapleton Work Phone: Start: 01-25-2020 Endoscopy of esophagus Deep Stapleton Work Phone: Start: 01-25-2020 End: 01-25-2020 Esophageal manometry Deep Stapleton Work Phone: Start: 08-12-2019 Troponin measurement Jose Kenney Work Phone: Start: 08-12-2019 CT angiography of pulmonary artery Nsetor Kenney Work Phone: Start: 08-12-2019 Influenza virus A AND B antigen assay Jose Kenney Work Phone: Start: 08-12-2019 Radiologic exam chest single view Jose Kenney Work Phone: Start: 08-12-2019 Basic metabolic 2000 panel - Serum or Plasma Jose Kenney Work Phone: Start: 08-12-2019 Complete blood count with white cell differential, automated Jose Kenney Work Phone: Start: 08-12-2019 Complete blood count with white cell differential, manual Jose Kenney Work Phone: Start: 08-12-2019 Lactate [Moles/volume] in Serum or Plasma Jose Kenney Work Phone: Start: 08-12-2019 Natriuretic peptide.B prohormone N-Terminal [Mass/volume] in Serum or Plasma Jose Kenney Work Phone: Start: 08-12-2019 Troponin measurement Jose Kenney Work Phone: Start: 08-12-2019 12 lead ECG Jorge A Mcconnell Work Phone: Start: 08-02-2019 Standard chest X-ray Zia Porter Work Phone: Plan of Treatment Date Care Activity Detail Author Start: 2032 Zoster Vaccines (1 of 2) Zoste r Vaccines (1 of 2) [facility] Start: 01-31-2026 Depression screening using PHQ-9 (Patient Health Questionnaire 9) score Depression Screening/Follow-Up (PHQ-2/9) [facility] Comment on above: Postponed from 09/25 (Patient Refused) Start: 01-31-2026 History and physical examination, annual for health maintenance Wellness Visit [facility] Start: 01-31-2026 Lipid panel Lipid Panel [facility] Start: 07-24-2025 End: 07-24-2025 Patient encounter procedure 07/24/2025 11:30 AM EST Office Visit [facility] [address] [place] [address] Sean Domínguez DO [address] [place] [address] [facility] Start: 07-23-2025 History and physical examination, annual for health maintenance Wellness Visit [facility] Start: 05-20-2025 Influenza vaccination [facility] Start: 04-11-2025 Patient discharge [facility] Start: 01-31-2025 End: 01-31-2026 Hemoglobin A1c/Hemoglobin.total in Blood [facility] Comment on above: Expected: 01/31/2025 , Expires: 01/31/2026 Start: 11-18-2024 End: 08-20-2025 Prostate specific Ag [Mass/volume] in Serum or Plasma Prostate Specific Antigen Lab Routine Nocturia Expected: 11/18/2024 (Approximate), Expires: 08/20/2025 [facility] Service Area Work Phone: Comment on above: Expected: 11/18/2024 (Approximate), Expires: 08/20/2025 Start: 09-24-2024 End: 09-24-2024 Patient encounter procedure 09/24/2024 1:45 PM EST Office Visit [facility] [address] [place] [address] Tabitha Gee MD [address] [place] [address] [facility] Start: 07-13-2024 End: 07-13-2024 Patient encounter procedure 07/13/2024 10:30 AM EDT Office Visit [facility] [address] [place] [address] Sean Domínguez DO [address] [place] [address] [facility] Start: 07-01-2024 History and physical examination, annual for health maintenance Wellness Visit [facility] Start: 05-20-2024 COVID-19 Vaccine ( season) COVID-19 Vaccine () [facility] Start: 05-20-2024 Influenza vaccination Influenza Vacc ine (#1) [facility] Start: 07-01-2023 End: 07-01-2023 Patient encounter procedure 07/01/2023 Office Visit Primary Care Sean Domínguez DO [address] [place] [address] [facility] Start: 06-25-2023 History and physical examination, annual for health maintenance Wellness Visit [facility] Start: 06-25-2023 Lipid panel Lipid Panel [facility] Start: 05-20-2023 Influenza vaccination A don [employer] [facility] Start: 2022 Lipid panel LIPID SCREENING [facility] Start: 06-25-2022 End: 06-25-2022 Patient encounter procedure 06/25/2022 Office Visit Primary Care Sean Domínguez DO [address] [place] [address] [facility] Start: 06-19-2022 History and physical examination, annual for health maintenance Wellness Visit [facility] Start: 05-20-2022 Influenza vaccination [facility] Start: 06-18-2021 ZEYAD-7 Screening ZEYAD-7 Screening [facility] Start: 05-20-2021 Influenza vaccination [facility] Start: 03-18-2021 Influenza vaccinatio n given Sequential Influenza Vaccine (#1) [facility] Comment on above: Postponed from 05/20 (Patient Refused) Start: 05-20-2020 Influenza vaccinatio n given Sequential Influenza Vaccine (Season Ended) [facility] Start: 04-25-2020 Depression screening using PHQ-9 (Patient Health Questionnaire 9) score Depression Screening (PHQ9) [facility] Comment on above: Postponed from 09/25 (Patient Refused) Start: 04-25-2020 Influenza vaccinatio n given SEQUENTIAL INFLUENZA VACCINE (#1) [facility] Comment on above: Postponed from 05/20 (Patient Refused) Start: 02-13-2020 End: 02-13-2020 Office Visit 02/13/2020 Office Visit [facility] Deep Stapleton MD [address] [place] [address] [place] [id number] [phone] [facility] Start: 08-13-2019 Influenza vaccinatio n given SEQUENTIAL INFLUENZA VACCINE (#1) [facility] Comment on above: Postponed from 05/20 (Patient Ill Today) Start: 05-20-2019 Influenza vaccinatio n given SEQUENTIAL INFLUENZA VACCINE (Season Ended) [facility] Start: 05-20-2018 Influenza vaccination SEQUENTI AL INFLUENZA VACCINE (#1) [facility] Start: 2004 DTaP/Tdap/Td Vaccine s (1 - Tdap) DTaP/Tdap/Td Vaccines (1 - Tdap) [facility] Start: 2001 Hepatitis B Vaccines (1 of 3 - 19+ 3-dose series) Hepatitis B Vaccines (1 of 3 - 19+ 3-dose series) [facility] Start: 2001 Third diphtheria, tetanus and acellular pertussis (DTaP) vaccination TDAP (ADULT) [facility] Start: 2000 Diabetes mellitus screening Diabetes Screening [facility] Start: 2000 Hepatitis C antibody , confirmatory test Hepatitis C Screening [facility] Start: 2000 Hepatitis C screening Hepatitis C Sc reening [facility] Start: 2000 Tetanus vaccination [facility] Start: 1997 HIV screening [facility] Start: 1995 Varicella vaccination Varicell a Vaccines (1 of 2 - 13+ 2-dose series) [facility] Start: 1994 Adolescent depressio n screening assessment Depression Screening (PHQ9) [facility] Start: 1994 COVID-19 Vaccine (1) COVID-19 Vaccin e (1) [facility] Start: 1994 Depression screening using PHQ-9 (Patient Health Questionnaire 9) score [facility] Start: 1987 COVID-19 VACCINE (1) COVID-19 VACCIN E (1) [facility] Start: 1985 History and physical examination, annual for health maintenance Wellness Visit [facility] Start: 03-25-1983 COVID-19 Vaccine (#1) COVID-19 Vacci ne (#1) [facility] Start: 1982 Depression screening using PHQ-9 (Patient Health Questionnaire 9) score DEPRESSION SCREENING (PHQ9) [facility] Start: 1982 Fasting lipid profile Lipid Panel [facility] Start: 1982 Hepatitis C antibody , confirmatory test HEPATITIS C VIRUS SCREENING [facility] Start: 1982 Hepatitis C screening HEPATITI S C VIRUS SCREENING [facility] Start: 1982 HIV screening HIV Screening [facility] Start: 1982 Lipid panel Lipid Panel [facility] Start: 1982 Tetanus vaccination [facility] Start: 1982 Yearly Adult Physical Yearly Adult P hycal [facility] End: 08-12-2019 Bacteria identified Cx Nom (Bld) Blood Culture Aerobic/Anaerobic Microbiology Routine Once for 1 Occurrences starting 08/12/2019 until 08/12/2019 [facility] Comment on above: Once for 1 Occurrenc es starting 08/12/2019 until 08/12/2019 Bacteria identified Cx Nom (Bld) Blood Culture Aerobic/Anaerobic Microbiology Routine 08/12/2019 1:04 PM EST [facility] Complete blood count with white cell differential, automated CBC Auto Differential Lab Panel Routine Routine general medical examination at a health care facility Ordered: 06/25/2022 [facility] Comment on above: Ordered: 06/25/2022 Complete blood count with white cell differential, automated CBC Auto Differential Lab Panel Routine Preventative health care 01/31/2025 8:26 AM EDT [facility] End: 06-19-2022 Complete blood count with white cell differential, manual CBC and Differential Lab Routine Routine general medical examination at a health care facility 1 Occurrences starting 06/19/2021 until 06/19/2022 [facility] Comment on above: 1 Occurrences starti ng 06/19/2021 until 06/19/2022 End: 06-25-2023 Complete blood count with white cell differential, manual CBC and Differential Lab Routine Routine general medical examination at a health care facility 1 Occurrences starting 06/25/2022 until 06/25/2023 [facility] Comment on above: 1 Occurrences starti ng 06/25/2022 until 06/25/2023 End: 07-23-2025 Complete blood count with white cell differential, manual CBC and Differential Lab Routine Routine general medical examination at a health care facility 1 Occurrences starting 07/23/2024 until 07/23/2025 [facility] Comment on above: 1 Occurrences starti ng 07/23/2024 until 07/23/2025 End: 01-31-2026 Complete blood count with white cell differential, manual CBC and Differential Lab Routine Preventative health care 1 Occurrences starting 01/31/2025 until 01/31/2026 [facility] Comment on above: 1 Occurrences starti ng 01/31/2025 until 01/31/2026 Complete blood count with white cell differential, manual CBC and Differential Lab Routine Preventative health care 01/31/2025 8:26 AM EDT [facility] End: 06-19-2022 Comprehensive metabolic 2000 panel - Serum or Plasma Comprehensive Metabolic Panel Lab Routine Routine general medical examination at a health care facility 1 Occurrences starting 06/19/2021 until 06/19/2022 [facility] Comment on above: 1 Occurrences starti ng 06/19/2021 until 06/19/2022 End: 06-25-2023 Comprehensive metabolic 2000 panel - Serum or Plasma Comprehensive Metabolic Panel Lab Routine Routine general medical examination at a health care facility 1 Occurrences starting 06/25/2022 until 06/25/2023 [facility] Work Phone: Comment on above: 1 Occurrences starti ng 06/25/2022 until 06/25/2023 End: 07-23-2025 Comprehensive metabolic 2000 panel - Serum or Plasma Comprehensive Metabolic Panel Lab Routine Routine general medical examination at a health care facility 1 Occurrences starting 07/23/2024 until 07/23/2025 [facility] Comment on above: 1 Occurrences starti ng 07/23/2024 until 07/23/2025 End: 01-31-2026 Comprehensive metabolic 2000 panel - Serum or Plasma Comprehensive Metabolic Panel Lab Routine Preventative health care 1 Occurrences starting 01/31/2025 until 01/31/2026 [facility] Comment on above: 1 Occurrences starti ng 01/31/2025 until 01/31/2026 Comprehensive metabo lic 2000 panel - Serum or Plasma Comprehensive Metabolic Panel Lab Routine Preventative health care 01/31/2025 8:26 AM EDT [facility] Covid-19/Influenza O rder Algorithm Covid-19/Influenza Order Algorithm Microbiology Routine Upper respiratory tract infection, unspecified type Ordered: 08/02/2020 [facility] Comment on above: Ordered: 08/02/2020 Laparoscopic appendectomy APPENDECTOMY LAPAROSCOPIC Acute appendicitis [facility]HA [facility] OR End: 06-19-2022 Lipid 1996 panel - Serum or Plasma Lipid Panel Lab Routine Routine general medical examination at a health care facility 1 Occurrences starting 06/19/2021 until 06/19/2022 [facility] Work Phone: Comment on above: 1 Occurrences starti ng 06/19/2021 until 06/19/2022 End: 06-25-2023 Lipid 1996 panel - Serum or Plasma Lipid Panel Lab Routine Routine general medical examination at a health care facility 1 Occurrences starting 06/25/2022 until 06/25/2023 [facility] Comment on above: 1 Occurrences starti ng 06/25/2022 until 06/25/2023 End: 07-23-2025 Lipid 1996 panel - Serum or Plasma Lipid Panel Lab Routine Routine general medical examination at a health care facility 1 Occurrences starting 07/23/2024 until 07/23/2025 [facility] Work Phone: Comment on above: 1 Occurrences starti ng 07/23/2024 until 07/23/2025 End: 01-31-2026 Lipid 1996 panel - Serum or Plasma Lipid Panel Lab Routine Preventative health care 1 Occurrences starting 01/31/2025 until 01/31/2026 [facility] Work Phone: Comment on above: 1 Occurrences starti ng 01/31/2025 until 01/31/2026 Lipid 1996 panel - S priti or Plasma Lipid Panel Lab Routine Preventative health care 01/31/2025 8:26 AM EDT [facility] End: 07-23-2025 Prostate specific Ag [Mass/volume] in Serum or Plasma PSA, Screen Lab Routine Routine general medical examination at a health care facility 1 Occurrences starting 07/23/2024 until 07/23/2025 [facility] Comment on above: 1 Occurrences starti ng 07/23/2024 until 07/23/2025 SURGICAL PATHOLOGY REQUEST SURGICAL PATHOLOGY REQUEST Surg Path Routine Acute appendicitis Release Upon Ordering for 1 Occurrences starting 01/31/2023 [facility] Comment on above: Release Upon Orderin g for 1 Occurrences starting 01/31/2023 [facility] Immunizations Immunization Date Immunization Notes Care Provider Fa brook 01-14-1995 measles, mumps and r ubella virus vaccine Sean Domínguez [facility] Payers Date Payer Category Payer Self-pay 2021 [email or web address] Managed Care [facility] [id number] 2020 [facility] UE/PREF/HMO/PPO [id number] 2020 Unknown [id number] 1.2.840.769758.1.13.385.2. 7.3.318379.315 2020 Unknown [id number]. 1.13.385.2. 7.3.027765.315 2019 Unknown [id number] 2016 Unknown [id number] 1.2.840.863445.1.13.385.2. 7.3.187038.315 2016 Unknown [id number] 1982 Unknown [id number] 2.16.840.1.823757.3.579.2. 903 1982 Unknown [id number] 2.16.840.1.093966.3.579.2. 903 1982 Unknown [id number] 2.16.840.1.331902.3.579.2. 903 1982 Unknown [id number] 2.16.840.1.331422.3.579.2. 903 1982 Unknown [id number] 2.16.840.1.836989.3.579.2. 903 1982 Unknown [id number] 2.16.840.1.161144.3.579.2. 903 1982 Unknown [id number] 2.16.840.1.691134.3.579.2. 900 1982 Unknown [id number] 2.16.840.1.032247.3.579.2. 903 1982 Unknown [id number] 2.16.840.1.379618.3.579.2. 903 1982 Unknown [id number] 2.16.840.1.341075.3.579.2. 903 1982 Unknown [id number] 2.16.840.1.631836.3.579.2. 983 1982 Unknown [id number] 2.16.840.1.334808.3.579.2. 983 1982 Unknown [id number] 2.16.840.1.657537.3.579.2. 983 1982 Unknown [id number] 2.16.840.1.686337.3.579.2. 983 1982 Unknown [id number] 2.16.840.1.060708.3.579.2. 983 1982 Unknown [id number] 2.16.840.1.434160.3.579.2. 356 1982 Unknown [id number] 2.16.840.1.257832.3.579.2. 1244 1982 Unknown [id number] 2.16.840.1.925765.3.579.2. 1244 1982 Unknown [id number] 2.16.840.1.687934.3.579.2. 903 1982 Unknown [id number] 2.16.840.1.001525.3.579.2. 903 1982 Unknown [id number] 2.16.840.1.973830.3.579.2. 903 Unknown [id number] 2.16.840.1.891414.3.579.2. 462 Unknown [id number] 2.16.840.1.334176.3.579.2. 462 Unknown [id number] 2.16840.1.100171.3.579.2. 462 Social History Date Type Detail Facility Start: 08-02-2018 End: 04-08-2025 Tobacco smoking status PRIS Never smoker [facility] Start: 1980 Sex Assigned At Not on file [facility] Start: 01-19-2019 End: 09-05-2020 History SDOH Alcohol Frequency 2 [facility] Start: 01-19-2019 End: 07-31-2020 History SDOH Alcohol Std Drinks 1 [facility] Start: 08-02-2018 End: 09-15-2022 Alcohol Comment occasional [facility] Start: 08-12-2019 End: 01-31-2025 Alcohol intake Current drinker of alcohol (finding) [facility] Start: 06-15-2022 End: 08-20-2024 Exposure to SARS-CoV-2 (event) Not sure [facility] Start: 07-31-2020 End: 10-06-2022 Tobacco use and exposure Never used [facility] Start: 07-31-2020 End: 01-31-2025 History of Social function [facility] Start: 07-31-2020 End: 01-31-2025 Alcohol Use Disorder Identification Test - Consumption [AUDIT-C] [facility] How often to you hav e a drink containing alcohol? Monthly or less [facility] How many standard dr inks containing alcohol do you have on a typical day? 1 or 2 [facility] How often do you hav e 6 or more drinks on 1 occasion? Less than monthly [facility] Start: 08-27-2019 Gender identity Identifies as male gender (finding) [facility] Start: 08-27-2019 Sexual orientation Heterosexual (finding) [facility] Start: 09-07-2024 End: 09-17-2024 Exposure to SARS-CoV-2 (event) Unable to assess [facility] Tobacco smoking stat [facility] Unknown if ever smoked [facility] Work Phone: Start: 1980 Sex Assigned At Male [facility] Medical Equipment Procedure Code Equipment Code Equipment Origin al Text Equipment Identifier Dates Capsules Ph Brav o - [id number] Start: 01-25-2020 Comment on above: Description: Khan p laced at 39. Goals Date Patient Goal Desired Activity /State Mental Status Date Assessment Result Facility 04-11-2025 Cognitive function Level Of Cons ciousness Awake;Drowsy [facility] Work Phone: Clinical Notes 06-19-2021 to 04-11-2025 Note Date & Type Note Facility 04-11-2025 Procedure note [facility] 04-11-2025 Procedure note [facility] 04-11-2025 History and physi callum note Note Date/Time April 11, 2025 10:35am [facility] Medical Records Department [address] [place] [address] History & Physical Exam 04/11/25 1033 MR#: [id number] Acct: [id number] Name: SHANE LENZ Rep #:[id number] : 1980 44 From: Melquiades Ng DO PCP: Dr. Sean Domínguez MD Status:REG [facility] Location: [place] [address] HPI - General General Date of Admission: 04/11/25 Date of Service: 04/11/25 Chief Complaint: Eosinophilic esophagitis HPI Narrative SHANE LENZ, is a 44 M who presents Chief Complaint: EOE Pt was diagnosed with EOE in his 20s and since then has had issues with swallowing. He will have to take a drink of water after each bit of food. He hasepisodes of needing to regurgitate his food. Last episode of regurgitation was 3weeks ago and happened three times during that week. He notices worse symptoms when eating or drinking dairy. he is not not on a PPI due to n/v when he tried taking it. He has had good results with budesonide inhaler as needed. Last EGD was about 6 years ago. [facility] Medical History Alcohol use Difficulty swallowing Difficulty chewing Non-smoker Home Medications ?Medication ?Instructions ?Recorded ?Last Taken ?Type NK 04/08/25 Unknown History Allergy/AdvReac Type Severity Reaction Status Date / Time corn Allergy Severe OTHER Verified 04/11/25 10:27 Milk Containing Products Allergy Severe OTHER Verified 04/11/25 10:27 (Dairy) peanut (peanuts) Allergy Severe OTHER Verified 04/11/25 10:27 wheat Allergy Severe Other Verified 04/11/25 10:27 Sulfa (Sulfonamide Allergy Other Verified 04/11/25 10:27 Antibiotics) Surgical History History of esophagogastroduodenoscopy (EGD) History of myringotomy Hx of amputation of foot Hx of appendectomy Social History Smoking Status: Never smoker ROS Constitutional Constitutional: Denies fatigue, fever(s), poor appetite, weight gain or weight loss Gastrointestinal Gastrointestinal: Denies belching, bloating, change in bowel habits, change in stool character, chewing difficulty, coffee ground emesis, constipation, cramping, diarrhea, dyspepsia, dysphagia, early satiety, excessive flatus, fecalincontinence, heartburn, hematemesis, hematochezia, hemorrhoids, loose stools, melena, nausea, odynophagia, rectal bleeding, tenesmus, vomiting or weight changes Vital Signs Vital Signs Vital Signs: 04/11/25 10:28 04/11/25 10:28 Temperature 97.5 F L Temperature Source Temporal Pulse Rate 68 Respiratory Rate 16 Respiratory Pattern Normal Blood Pressure 126/81 H Blood Pressure Mean 96 Blood Pressure Source Monitor Blood Pressure Position Semi-Fowlers Blood Pressure Location Left Arm Pulse Ox 97 Oxygen Delivery Method Room Air Weight Weight: 175 lb Body Mass Index (BMI) 24.4 Physical Exam Const alert, oriented x3, no apparent distress and healthy appearing General Appearance: cooperative GI normal to inspection, nondistended, normoactive bowel sounds, soft to palpation,non-tender and non-distended Percussion: normal to percussion Rectal Exam: deferred Assessment & Plan Assessment/Plan (1) Eosinophilic esophagitis: PLAN: Assessment and Plan Assessment and Plan (1) Eosinophilic esophagitis: Status: Acute Plan: Shane is a 44 yo male pt here today for evaluation of EOE. Pt diagnosed with EOE in his 20s and most recently underwent EGD 6 years ago. Pt has been having worsening symptoms over the past few months with more instances of regurgitation. I have recommended starting a PPI however Nexium made him vomit so he would prefer to not take these. Pt also not wanting to go on Dupixent at this time. He has had good results with budesonide inhaler. Will prescribe Budesonide oral suspension. Will order RAST food allergy testing so he may avoidany allergens. He will undergo EGD for evaluation of his upper GI tract. -EGD -Food allergy testing -Recommend PPI -Budesonide oral suspension -Consider Dupixent pending results 04/11/25 1035 <Electronically signed by Melquiades Ng DO> Cosigner Signature (if applicable): CC: Dr. Sean Domínguez MD; Melquiades Ng DO~ Signed [facility] Work Phone: 1(607) 539-558407-24-2025 Consult note [facility] Medical Records Department [address] [place] [address] Anesthesia Postop Eval I 04/11/25 1219 MR#: [id number] Acct: [id number] Name: SHANE LENZ Rep #:[id number] : 1980 44 From: John Woodruff PCP: Dr. Sean Domínguez MD Status:REG SD Y Race: C Location: [place] [address] Anesthesia: Postop Eval I Current Vital Signs Temperature: 97.8 F Pulse Rate: 88 Blood Pressure: 106/73 Respiratory Rate: 16 Pulse Ox: 95 Oxygen Delivery Method: Room Air Assessment Airway patent: Yes Spontaneous unlabored respirations: Yes Mental status: Awake nausea: No Vomiting: No Anesthesia Complication: No Fluid Hydration Crystalloid volume administer (ml): 400 Total IV fluid infused: 400 Progress Note Anesthesia document: Postop Eval 1 completed: Yes 04/11/25 1220 > Date _ John Woodruff Cosigner Signature: Date CC: ~ Signed [facility]07-24-2025 Consult note [facility] Medical Records Department [address] [place] [address] Pre-Anesthesia Evaluation 04/11/25 1056 MR#: [id number] Acct: [id number] Name: SHANE LENZ Rep #:[id number] : 1980 44 From: Chris corral MD PCP: Dr. Sean Domínguez MD Status:REG [facility] Y Race: C Location: [place] [address] ASA Classification* ASA Classification ASA Classification: 2 Assessment & Plan Anesthesia* Anesthesia Assessment Anesthesia Assessment: Discussed sedation and/or anesthesia options, risks, benefits, and alternatives with patient/parents/legal guardian/POA. Questions invited. The patient/parents/legal guardian/POA seems to understand and agrees to proceedwith anesthesia plan. Reviewed the physical assessment, medical history, allergy history and patient home medications list prior to surgery/procedure/anesthetic and documented any changes. Performed airway and anesthesia risk assessments. 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 When Was Last Pacemaker Check QUESTION #4 FULL TEXT: You/Your Family Experience fever (hyperthermia) with Anesthesia Last Oral Intake Last Oral intake: Last Oral Intake NPO since 20:00 04/11/25 10:28 Meds taken in AM with sips of water? Meds patient instructed to take am of surgery PONV PONV - pugger helper: PONV - pugger helper Female No 04/08/25 14:26 HX of Motion Sickness No 04/08/25 14:26 HX of N/V After Surgery No 04/08/25 14:26 Non-Smoker No 04/08/25 14:26 Duration of Surgery greater No 04/08/25 14:26 than 60 minutes Number of Risk Factors PONV Score Height & Weight Height & Weight: Anesthesia: Height & Weight Height 5 ft 11 in 04/11/25 10:28 Weight: 79.379 kg 04/11/25 10:28 Body Mass Index (BMI) 24.4 04/11/25 10:28 Respiratory Assessment Respiratory Assessment - pugger helper: Respiratory Tract Infection Hx - pugger helper Hx Respiratory Tract Infection No 04/08/25 14:26 STOP Sleep Apnea STOP Sleep Apnea - pugger helper: STOP Sleep Apnea - pugger helper Hx Hypertension No 04/08/25 14:26 Hx Sleep Apnea No 04/08/25 14:26 CPAP BIPAP Do you snore loudly (louder No 04/08/25 14:26 than talking or can be heard Do you often feel tired/ No 04/08/25 14:26 fatigued/ sleepy during daytime? Has anyone observed you stop No 04/08/25 14:26 breathing during sleep? STOP Results Negative 04/08/25 14:26 QUESTION #5 FULL TEXT : Do you snore loudly (louder than talking or can be heard through closeddoors)? 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 Specify any problems Hx of Preganancy in last 3 N/A 04/08/25 14:26 Months Nurse Filling Out Transfusion VCHRISTIN 04/08/25 14:26 & Questions: Date: 04/08/25 04/08/25 14:26 Time: 14:27 04/08/25 14:26 Patient unable to answer at this time (ie. confused, unrespo /Reproduction History /Reproductive History - pugger helper: /Reproductive Hx- pugger helper Hx Now No 04/08/25 14:26 Gestational Age (in weeks): EDC: Hx Hx Para Hx Section SAB No 04/08/25 14:26 Active Medications Active Medications: Current Medications Generic Name Dose Route Start Last Admin Trade Name Freq PRN Reason Stop Dose Admin Lactated Ringer's 1,000 mls @ 15 mls/hr 04/11/25 10:30 04/11/25 10:37 IV 15 mls/hr .Q48H MARY Administration PFSH Medical History Alcohol use Difficulty swallowing Difficulty chewing Non-smoker Home Medications ?Medication ?Instructions ?Recorded ?Last Taken ?Type NK 04/08/25 Unknown History Allergy/AdvReac Type Severity Reaction Status Date / Time corn Allergy Severe OTHER Verified 04/11/25 10:27 Milk Containing Products Allergy Severe OTHER Verified 04/11/25 10:27 (Dairy) peanut (peanuts) Allergy Severe OTHER Verified 04/11/25 10:27 wheat Allergy Severe Other Verified 04/11/25 10:27 Sulfa (Sulfonamide Allergy Other Verified 04/11/25 10:27 Antibiotics) Surgical History History of esophagogastroduodenoscopy (EGD) History of myringotomy Hx of amputation of foot Hx of appendectomy Social History Smoking Status: Never smoker Review of Systems (Anesthesia) ROS Narrative System reviewed and no additional complaints, except as documented. 04/11/25 1100 emiliano EVGA> Date _ Chris Fernandez MD Cosigner Signature: Date CC: ~ Signed [facility]07-24-2025 History and physical note [facility] Medical Records Department [address] [place] [address] History & Physical Exam 04/11/25 1033 MR#: [id number] Acct: [id number] Name: SHANE LENZ Rep #:[id number] : 1980 44 From: Melquiades Friend PCP: Dr. Sean Domínguez MD Status:[facility] Location: [place] [address] HPI - General General Date of Admission: 04/11/25 Date of Service: 04/11/25 Chief Complaint: Eosinophilic esophagitis HPI Narrative SHANE LENZ, is a 44 M who presents Chief Complaint: EOE Pt was diagnosed with EOE in his 20s and since then has had issues with swallowing. He will have totake a drink of water after each bit of food. He hasepisodes of needing to regurgitate his food. Last episode of regurgitation was 3weeks ago and happened three times during that week. He notices worse symptoms when eating or drinking dairy. he is not not on a PPI due to n/v when he tried taking it. He has had good results with budesonide inhaler as needed. Last EGD was about 6 years ago. [facility] Medical History Alcohol use Difficulty swallowing Difficulty chewing Non-smoker Home Medications ?Medication ?Instructions ?Recorded ?Last Taken ?Type NK 04/08/25 Unknown History Allergy/AdvReac Type Severity Reaction Status Date / Time corn Allergy Severe OTHER Verified 04/11/25 10:27 Milk Containing Products Allergy Severe OTHER Verified 04/11/25 10:27 (Dairy) peanut (peanuts) Allergy Severe OTHER Verified 04/11/25 10:27 wheat Allergy Severe Other Verified 04/11/25 10:27 Sulfa (Sulfonamide Allergy Other Verified 04/11/25 10:27 Antibiotics) Surgical History History of esophagogastroduodenoscopy (EGD) History of myringotomy Hx of amputation of foot Hx of appendectomy Social History Smoking Status: Never smoker ROS Constitutional Constitutional: Denies fatigue, fever(s), poor appetite, weight gain or weight loss Gastrointestinal Gastrointestinal: Denies belching, bloating, change in bowel habits, change in stool character, chewing difficulty, coffee ground emesis, constipation, cramping, diarrhea, dyspepsia, dysphagia, earlysatiety, excessive flatus, fecalincontinence, heartburn, hematemesis, hematochezia, hemorrhoids, loose stools, melena, nausea, odynophagia, rectal bleeding, tenesmus, vomiting or weight changes Vital Signs Vital Signs Vital Signs: 04/11/25 10:28 04/11/25 10:28 Temperature 97.5 F L Temperature Source Temporal Pulse Rate 68 Respiratory Rate 16 Respiratory Pattern Normal Blood Pressure 126/81 H Blood Pressure Mean 96 Blood Pressure Source Monitor Blood Pressure Position Semi-Fowlers Blood Pressure Location Left Arm Pulse Ox 97 Oxygen Delivery Method Room Air Weight Weight: 175 lb Body Mass Index (BMI) 24.4 Physical Exam Const alert, oriented x3, no apparent distress and healthy appearing General Appearance: cooperative GI normal to inspection, nondistended, normoactive bowel sounds, soft to palpation,non-tender and non-distended Percussion: normal to percussion Rectal Exam: deferred Assessment & Plan Assessment/Plan (1) Eosinophilic esophagitis: PLAN: Assessment and Plan Assessment and Plan (1) Eosinophilic esophagitis: Status: Acute Plan: Shane is a 44 yo male pt here today for evaluation of EOE. Pt diagnosed with EOE in his 20s and most recently underwent EGD 6 years ago. Pt has been having worsening symptoms over the past few months with more instances of regurgitation. I have recommended starting a PPI however Nexium made him vomit so he would prefer to not take these. Pt also not wanting to go on Dupixent at this time. He hashad good results with budesonide inhaler. Will prescribe Budesonide oral suspension. Will order RAST food allergy testing so he may avoidany allergens. He will undergo EGD for evaluation of his upperGI tract. -EGD -Food allergy testing -Recommend PPI -Budesonide oral suspension -Consider Dupixent pending results 04/11/25 1035 Cosigner Signature (if applicable): CC: Dr. Sean Domínguez MD; Melquiades Friend, DO~ Signed [facility]05-30-2025 Evaluation note* Diagnosis Onset Date Resolution Status Admit Date Eosinophilic esophagitis acute February 15, 2025 1:27pm [facility] Work Phone: [phone]) 467-435905-30-2025 Evaluation note* Diagnosis Onset Date Resolution Status Admit Date Eosinophilic esophagitis acute February 15, 2025 1:27pm Eosinophilic esophagitis acute April 11, 2025 10:09am [facility] Work Phone: 1(193) 310-564805-19-2025 NoteCall labs are stable-cholesterol is elevated but risk factor low at this time. We levi monitor yealy. AUTHENTICATED BY NATY SUTHERLAND, ON 02/04/2025 17:17:56[facility] 02-04-2025 History of Present illness Narrative* Naty Sutherland, [facility] - 02/04/2025 5:17 PM EDT Call labs are stable-cholesterol is elevated but risk factor low at this time. We levi monitor yealy. documented in this [id number] NoteWELL ADULT MALE ANNUAL WELLNESS VISIT Subjective: Shane Lenz is a 44 y.o. male and is here for a comprehensive physical exam. Having flares of his EOE and would like a referral to someone other than Dr. Stapleton for treatment. He admits he has not been complaint with his treatment in the past. Also having fevers off and on every evening for last week. 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 Prosthesis is necessary in order to keep balance. Do you take any herbs or supplements that were not prescribed by a doctor? no Depression: see phq9 Diet: Nothing special Exercise: some Immunizations: refuse Last eye exam: Up to date Last dental visit: Up to date Last colonoscopy if >45y: N/A Any high risk behavior: none Tobacco use or exposure: none Alcohol use: Yes History Date last PSA: N/A The following portions of the patient's history were reviewed and updated as appropriate: allergies, current medications, past family history, past medical history, past social history, past surgical history and problem list. Past Medical History: Diagnosis Date Eosinophilic esophagitis 01/25/2020 Hiatal hernia 01/25/2020 Hill grade II Known health problems: none Past Surgical History: Procedure Laterality Date ADENOIDECTOMY EGD N/A 01/25/2020 Procedure: ESOPHAGOGASTRODUODENOSCOPY WITH BIOPSIES and KHAN CHIP PLACEMENT; Surgeon: Deep Stapleton MD; Location: [facility]; Service: General Surgery ESOPHAGEAL MANOMETRY N/A 01/25/2020 Procedure: ESOPHAGEAL MANOMETRY; Surgeon: Deep Stapleton MD; Location: [facility]; Service: General Surgery FOOT AMPUTATION partial right foot amputation SKIN GRAFT Social History [1] Family History Problem Relation Age of Onset No Known Problems Mother No Known Problems Father No Known Problems Sister No Known Problems Brother Allergies[2] Review of Systems Do you have pain that bothers you in your daily life? no Constitutional: negative for chills, fevers and night sweats Eyes: negative for irritation, redness and visual disturbance Ears, nose, mouth, throat, and face: negative for earaches, nasal congestion, snoring and tinnitus Respiratory: negative for cough, hemoptysis and wheezing Cardiovascular: negative for chest pain, dyspnea, fatigue and palpitations Gastrointestinal: negative for abdominal pain, constipation, diarrhea, nausea and vomiting Genitourinary:negative for dysuria, frequency and hesitancy Hematologic/lymphatic: negative for easy bruising and lymphadenopathy Musculoskeletal:negative for arthralgias, myalgias and stiff joints Neurological: negative for dizziness, headaches and weakness Behavioral/Psych: negative for anxiety and depression Endocrine: negative for diabetic symptoms including polydipsia and polyuria Allergic/Immunologic: negative for angioedema and urticaria Objective: BP 100/60 (BP Location: Left arm, Patient Position: Sitting, BP Cuff Size: Adult) Pulse 71 Temp 98.1 degrees F (36.7 degrees C) (Oral) Resp 16 Wt 80.7 kg (178 lb) SpO2 97% BMI 25.18 kg/m General Appearance: Alert, cooperative, no distress, appears stated age Head: Normocephalic, without obvious abnormality, atraumatic Eyes: PERRL, conjunctiva/corneas clear, EOM's intact, fundi benign, both eyes Ears: Normal TM's and external ear canals, both ears Nose: Nares normal, septum midline, mucosa normal, no drainage or sinus tenderness Neck: Supple, symmetrical, trachea midline, no adenopathy; thyroid: No enlargement/tenderness/nodules; no carotid bruit or JVD Lungs: Clear to auscultation bilaterally, respirations unlabored Heart: Regular rate and rhythm, S1 and S2 normal, no murmur, rub or gallop Abdomen: Soft, non-tender, bowel sounds active all four quadrants, no masses, no organomegaly Extremities: Extremities normal, atraumatic, no cyanosis or edema Pulses: 2+ and symmetric all extremities Skin: Skin color, texture, turgor normal, no rashes or lesions Lymph nodes: Cervical, supraclavicular, and axillary nodes normal Neurologic: CNII-XII intact. Normal strength, sensation and reflexes throughout Assessment: Healthy male exam. Plan: 1. Patient Counseling: --Nutrition: Stressed importance of moderation in sodium/caffeine intake, saturated fat and cholesterol, caloric balance, sufficient intake of fresh fruits, vegetables --Exercise: Stressed the importance of regular exercise. --Substance Abuse: Discussed cessation/primary prevention of tobacco, alcohol, or other drug use --Sexuality: Discussed sexually transmitted diseases, partner selection, use of condoms, avoidance of unintended and contraceptive alternatives. --Dental health: Discussed importance of regular dental visits. --Immunizations reviewed. --Discussed benefits of screening colonoscopy. 3. Discussed the patient's BMI with him. The BMI is in the acceptable range 4. Follow up in one year Pro (more content not included)...[facility]05-15-2025 History of Present illness Narrative* Naty Sutherland, ACCOUNTING ADMINISTRATIVE ASSISTANT - 01/31/2025 8:27 AM EDT Images from the original note were not included. WELL ADULT MALE ANNUAL WELLNESS VISIT Subjective: Shane Lenz is a 44 y.o. male and is here for a comprehensive physical exam. Having flares of his EOE and would like a referral to someone other than Dr. Stapleton for treatment. He admits he has not been complaint with his treatment in the past. Also having fevers off and on every evening for last week. 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 Prosthesis is necessary in order to keep balance. Do you take any herbs or supplements that were not prescribed by a doctor? no Depression: see phq9 Diet: Nothing special Exercise: some Immunizations: refuse Last eye exam: Up to date Last dental visit: Up to date Last colonoscopy if >45y: N/A Any high risk behavior: none Tobacco use or exposure: none Alcohol use: Yes History Date last PSA: N/A The following portions of the patient's history were reviewed and updated as appropriate: allergies, current medications, past family history, past medical history, past social history, past surgicalhistory and problem list. Past Medical History: Diagnosis Date Eosinophilic esophagitis 01/25/2020 Hiatal hernia 01/25/2020 Hill grade II Known health problems: none Past Surgical History: Procedure Laterality Date ADENOIDECTOMY EGD N/A 01/25/2020 Procedure: ESOPHAGOGASTRODUODENOSCOPY WITH BIOPSIES and KHAN CHIP PLACEMENT; Surgeon: Deep Stapleton MD; Location: [facility]; Service: General Surgery ESOPHAGEAL MANOMETRY N/A 01/25/2020 Procedure: ESOPHAGEAL MANOMETRY; Surgeon: Deep Stapleton MD; Location: [facility]; Service: General Surgery FOOT AMPUTATION partial right foot amputation SKIN GRAFT Social History [1] Family History Problem Relation Age of Onset No Known Problems Mother No Known Problems Father No Known Problems Sister No Known Problems Brother Allergies[2] Review of Systems Do you have pain that bothers you in your daily life? no Constitutional: negative for chills, fevers and night sweats Eyes: negative for irritation, redness and visual disturbance Ears, nose, mouth, throat, and face: negative for earaches, nasal congestion, snoring and tinnitus Respiratory: negative for cough, hemoptysis and wheezing Cardiovascular: negative for chest pain, dyspnea, fatigue and palpitations Gastrointestinal: negative for abdominal pain, constipation, diarrhea, nausea and vomiting Genitourinary:negative for dysuria, frequency and hesitancy Hematologic/lymphatic: negative for easy bruising and lymphadenopathy Musculoskeletal:negative for arthralgias, myalgias and stiff joints Neurological: negative for dizziness, headaches and weakness Behavioral/Psych: negative for anxiety and depression Endocrine: negative for diabetic symptoms including polydipsia and polyuria Allergic/Immunologic: negative for angioedema and urticaria Objective: BP 100/60 (BP Location: Left arm, Patient Position: Sitting, BP Cuff Size: Adult) Pulse 71 Temp98.1 F (36.7 C) (Oral) Resp 16 Wt 80.7 kg (178 lb) SpO2 97% BMI 25.18 kg/m General Appearance: Alert, cooperative, no distress, appears stated age Head: Normocephalic, without obvious abnormality, atraumatic Eyes: PERRL, conjunctiva/corneas clear, EOM's intact, fundi benign, both eyes Ears: Normal TM's and external ear canals, both ears Nose: Nares normal, septum midline, mucosa normal, no drainage or sinus tenderness Neck: Supple, symmetrical, trachea midline, no adenopathy; thyroid: No enlargement/tenderness/nodules; no carotid bruit or JVD Lungs: Clear to auscultation bilaterally, respirations unlabored Heart: Regular rate and rhythm, S1 and S2 normal, no murmur, rub or gallop Abdomen: Soft, non-tender, bowel sounds active all four quadrants, no masses, no organomegaly Extremities: Extremities normal, atraumatic, no cyanosis or edema Pulses: 2+ and symmetric all extremities Skin: Skin color, texture, turgor normal, no rashes or lesions Lymph nodes: Cervical, supraclavicular, and axillary nodes normal Neurologic: CNII-XII intact. Normal strength, sensation and reflexes throughout Assessment: Healthy male exam. Plan: 1. Patient Counseling: --Nutrition: Stressed importance of moderation in sodium/caffeine intake, saturated fat and cholesterol, caloric balance, sufficient intake of fresh fruits, vegetables --Exercise: Stressed the importance of regular exercise. --Substance Abuse: Discussed cessation/primary prevention of tobacco, alcohol, or other drug use --Sexuality: Discussed sexually transmitted diseases, partner selection, use of condoms, avoidance of unintended and contraceptive alternatives. --Dental health: Discussed importance of regular dental visits. --Immunizations reviewed. --Discussed benefits of screening colonoscopy. 3. Discussed the patient's BMI with him. The BMI is in the acceptable range 4. Follow up in one year Problem List Items Addressed This Visit Other History of amputation of right foot (HCC) Relevant Orders Miscellaneous DME Equipment Other Visit Diagnoses Preventative health care - Primary Relevant Orders Miscellaneous DME Equipment Lipid Panel Comprehensive Metabolic Panel CBC and Differential Hemoglobin A1c Eosinophilic esophagitis Relevant Medications albuterol 90 mcg/actuation inhaler Naty Sutherland CNP [place] [phone] [1] Social History Socioeconomic History Marital status: Tobacco Use Smoking status: Never Smokeless tobacco: Never Vaping Use Vaping status: Never Used Substance and Sexual Activity Alcohol use: Yes Comment: occasional Drug use: No [2] Allergies Allergen Reactions Sulfa (Sulfonamide Antibiotics) Allergy test confirmed as a child * Anna Marie Padilla CMA - 01/31/2025 7:53 AM EDT Patient declines to fill out or answer phq and zeyad documented in this [id number] History of Present illness Narrative* Tabitha Gee MD - 09/17/2024 11:15 AM EST Subjective Patient ID: Shane Lenz is a 43 y.o. male. Virtual or Telephone Consent An interactive audio and video telecommunication system which permits real time communications between the patient (at the originating site) and provider (at the distant site) was utilized to providethis telehealth service. Verbal consent was requested and obtained from Sahne Lenz on this date, 09/17/24 for a telehealth visit. HPI Patient is here for 1 month medication check. He was given Uroxatral and states this has been helpful. . Family hx of prostate cancer (both grandfathers) No recent PSA. ED is not an issue. Energy level is good. Review of Systems Constitutional: Negative for chills and fever. HENT: Negative. Eyes: Negative. Respiratory: Negative for cough and shortness of breath. Cardiovascular: Negative for chest pain and leg swelling. Gastrointestinal: Negative for nausea. Endocrine: Negative. Genitourinary: Negative for difficulty urinating. Negative except for documented in HPI Allergic/Immunologic: Negative. Neurological: Alert & oriented X 3 Hematological: Denies blood thinners Psychiatric/Behavioral: Negative. Objective Physical Exam No PE done given the virtual nature of visit. Assessment/Plan ' Diagnoses and all orders for this visit: BPH associated with nocturia Nocturia Urinary frequency All available PSA values reviewed, Options discussed. Questions answered. PSA ordered-patient will do with Dr Domínguez's blood work Diet changes for prostate health discussed and educational information given. Pros/Cons of prostatehealth supplements discussed. Treatment options for LUTS reviewed Continue Uroxatrol Discussed timed voiding. Discussed fluid and caffeine intake Treatment options for ED reviewed. Lifestyle change to help prevent UTIs discussed. Encouraged fluid intake. F/U 6 months documented in this [facility] Work Phone: 1(369) 317-264212-02-2024 History of Present illness Narrative* Tabitha Gee MD - 08/20/2024 8:30 AM EST Subjective Patient ID: Shane Lenz is a 43 y.o. male. HPI Patient is here for urinary frequency. He states he has frequency at night, getting up 3-4 times. Complains of a weak stream and difficulty starting/emptying. . Some dribbling. No hematuria, No dysuria. Family hx of prostate cancer (both grandfathers) No recent PSA. ED is not an issue. Energy levelis good. Review of Systems Constitutional: Negative for chills and fever. HENT: Negative. Eyes: Negative. Respiratory: Negative for cough and shortness of breath. Cardiovascular: Negative for chest pain and leg swelling. Gastrointestinal: Negative for nausea. Endocrine: Negative. Genitourinary: Negative for difficulty urinating. Negative except for documented in HPI Allergic/Immunologic: Negative. Neurological: Alert & oriented X 3 Hematological: Denies blood thinners Psychiatric/Behavioral: Negative. Objective Physical Exam Vitals and nursing note reviewed. Constitutional: General: He is not in acute distress. Appearance: Normal appearance. Pulmonary: Effort: Pulmonary effort is normal. Abdominal: Tenderness: There is no abdominal tenderness. Genitourinary: Comments: Kidneys non palpable bilaterally Bladder non palpable or tender Scrotum no mass, No hydrocele Epididymis- No spermatocele. Non Tender. Testicles: No mass. WNL Urethra: No discharge Penis within normal limits... No lesions. circumcised Prostate - symmetric, no nodules. Smooth. BENIGN Seminal Vesicals: No mass. Sphincter tone: normal Neurological: Mental Status: He is alert. Assessment/Plan Diagnoses and all orders for this visit: BPH associated with nocturia Urinary frequency All available PSA values reviewed, Options discussed. Questions answered. PSA ordered Diet changes for prostate health discussed and educational information given. Pros/Cons of prostatehealth supplements discussed. Treatment options for LUTS reviewed Uroxatrol Rx given UA and PVR reviewed Discussed timed voiding. Discussed fluid and caffeine intake Treatment options for ED reviewed. Lifestyle change to help prevent UTIs discussed. Encouraged fluid intake. UA ordered F/U 1 month med review documented in this [facility] Work Phone: 1(930) 272-452011-04-2024 NoteHPI Frequency of urine, not emptying well, family hx of bph had vasectomy dr. Gee in the past. Here 07/23/2024 Vitals: 07/23/24 1124 BP: 110/66 Temp: 98.2 degrees F (36.8 degrees C) Pulse: 72 Resp: 14 PT WEIGHT Weight 07/23/2024 11:24 AM 175 lb 1.6 oz 07/01/2023 10:32 AM 166 lb 10/06/2022 8:05 AM 170 lb 12.8 oz 06/25/2022 7:54 AM 172 lb 11.2 oz BP Readings from Last 4 Encounters: 07/23/24 110/66 07/01/23 (!) 126/56 10/06/22 129/74 06/25/22 112/76 Past Medical History: Diagnosis Date Eosinophilic esophagitis 01/25/2020 Hiatal hernia 01/25/2020 Hill grade II Known health problems: none Past Surgical History: Procedure Laterality Date ADENOIDECTOMY EGD N/A 01/25/2020 Procedure: ESOPHAGOGASTRODUODENOSCOPY WITH BIOPSIES and KHAN CHIP PLACEMENT; Surgeon: Deep Stapleton MD; Location: [facility]; Service: General Surgery ESOPHAGEAL MANOMETRY N/A 01/25/2020 Procedure: ESOPHAGEAL MANOMETRY; Surgeon: Deep Stapleton MD; Location: [facility]; Service: General Surgery FOOT AMPUTATION partial right foot amputation SKIN GRAFT Social History Socioeconomic History Marital status: Tobacco Use Smoking status: Never Smokeless tobacco: Never Vaping Use Vaping status: Never Used Substance and Sexual Activity Alcohol use: Yes Comment: occasional Drug use: No Family History Problem Relation Age of Onset No Known Problems Mother No Known Problems Father No Known Problems Sister No Known Problems Brother Current Outpatient Medications Medication Sig Dispense Refill ascorbic acid (VITAMIN C ORAL) Take by mouth once daily . (Patient not taking: Reported on 07/23/2024 .) loratadine (CLARITIN) 10 mg tablet Take 1 (one) tablet (10 mg total) by mouth daily . (Patient not taking: Reported on 07/23/2024 .) ZINC ORAL Take by mouth once daily . (Patient not taking: Reported on 07/23/2024 .) No current facility-administered medications for this visit. PHQ-9 Depression Screening No documentation. Goals None Review of Systems Constitutional: Negative for chills, fatigue, fever and unexpected weight change. HENT: Negative for ear pain, mouth sores, rhinorrhea, sinus pressure, sinus pain and voice change. Eyes: Negative for pain, discharge, redness and visual disturbance. Respiratory: Negative for apnea, cough, chest tightness and shortness of breath. Cardiovascular: Negative for chest pain and palpitations. Gastrointestinal: Negative for abdominal pain, blood in stool and constipation. Endocrine: Negative for cold intolerance, heat intolerance, polydipsia, polyphagia and polyuria. Genitourinary: Positive for decreased urine volume and frequency. Negative for dysuria and hematuria. Musculoskeletal: Negative for joint swelling. Skin: Negative for color change, pallor and rash. Allergic/Immunologic: Negative for food allergies. Neurological: Negative for dizziness, tremors, seizures and light-headedness. Hematological: Negative for adenopathy. Psychiatric/Behavioral: Negative for behavioral problems, self-injury and sleep disturbance. Physical Exam Vitals reviewed. Constitutional: General: He is not in acute distress. HENT: Head: Normocephalic and atraumatic. Right Ear: There is no impacted cerumen. Left Ear: There is no impacted cerumen. Nose: Nose normal. Eyes: Extraocular Movements: Extraocular movements intact. Pupils: Pupils are equal, round, and reactive to light. Cardiovascular: Rate and Rhythm: Normal rate and regular rhythm. Pulmonary: Effort: Pulmonary effort is normal. Breath sounds: Normal breath sounds. Musculoskeletal: General: Normal range of motion. Comments: Right forefoot prosthetic Neurological: Mental Status: He is alert and oriented to person, place, and time. Mental status is at baseline. Psychiatric: Mood and Affect: Mood normal. Diagnoses and all orders for this visit: Diagnoses and all orders for this visit: Routine general medical examination at a health care facility - Lipid Panel; Future - Comprehensive Metabolic Panel; Future - CBC and Differential; Future - PSA, Screen; Future History of amputation of right foot (HCC) - Miscellaneous DME Equipment Hx of cold sores - valACYclovir (VALTREX) 1000 MG tablet; Take 1 (one) tablet (1,000 mg total) by mouth 2 (two) times a day . Acute bilateral low back pain without sciatica - methylPREDNISolone (MEDROL DOSEPACK) 4 mg tablet; Follow package directions . Urinary frequency if dr. Gee not taking on new patients call will refer to dr. Francois - Ambulatory referral to Urology; Future For any new medications prescribed today, patient was educated about indications for the medication, how to take the medication and potential side effects of the medications. AUTHENTICATED BY SEAN DOMÍNGUEZ, ON 07/23/2024 12:30:20[facility] [id number] History of Present illness Narrative* Sean Domínguez, DO - 07/23/2024 12:13 PM EST Images from the original note were not included. HPI Frequency of urine, not emptying well, family hx of bph had vasectomy dr. Gee in the past. Here 07/23/2024 Vitals: 07/23/24 1124 BP: 110/66 Temp: 98.2 F (36.8 C) Pulse: 72 Resp: 14 PT WEIGHT Weight 07/23/2024 11:24 AM 175 lb 1.6 oz 07/01/2023 10:32 AM 166 lb 10/06/2022 8:05 AM 170 lb 12.8 oz 06/25/2022 7:54 AM 172 lb 11.2 oz BP Readings from Last 4 Encounters: 07/23/24 110/66 07/01/23 (!) 126/56 10/06/22 129/74 06/25/22 112/76 Past Medical History: Diagnosis Date Eosinophilic esophagitis 01/25/2020 Hiatal hernia 01/25/2020 Hill grade II Known health problems: none Past Surgical History: Procedure Laterality Date ADENOIDECTOMY EGD N/A 01/25/2020 Procedure: ESOPHAGOGASTRODUODENOSCOPY WITH BIOPSIES and KHAN CHIP PLACEMENT; Surgeon: Deep Stapleton MD; Location: [facility]; Service: General Surgery ESOPHAGEAL MANOMETRY N/A 01/25/2020 Procedure: ESOPHAGEAL MANOMETRY; Surgeon: Deep Stapleton MD; Location: [facility]; Service: General Surgery FOOT AMPUTATION partial right foot amputation SKIN GRAFT Social History Socioeconomic History Marital status: Tobacco Use Smoking status: Never Smokeless tobacco: Never Vaping Use Vaping status: Never Used Substance and Sexual Activity Alcohol use: Yes Comment: occasional Drug use: No Family History Problem Relation Age of Onset No Known Problems Mother No Known Problems Father No Known Problems Sister No Known Problems Brother Current Outpatient Medications Medication Sig Dispense Refill ascorbic acid (VITAMIN C ORAL) Take by mouth once daily . (Patient not taking: Reported on 07/23/2024 .) loratadine (CLARITIN) 10 mg tablet Take 1 (one) tablet (10 mg total) by mouth daily . (Patient not taking: Reported on 07/23/2024 .) ZINC ORAL Take by mouth once daily . (Patient not taking: Reported on 07/23/2024 .) No current facility-administered medications for this visit. PHQ-9 Depression Screening No documentation. Goals None Review of Systems Constitutional: Negative for chills, fatigue, fever and unexpected weight change. HENT: Negative for ear pain, mouth sores, rhinorrhea, sinus pressure, sinus pain and voice change. Eyes: Negative for pain, discharge, redness and visual disturbance. Respiratory: Negative for apnea, cough, chest tightness and shortness of breath. Cardiovascular: Negative for chest pain and palpitations. Gastrointestinal: Negative for abdominal pain, blood in stool and constipation. Endocrine: Negative for cold intolerance, heat intolerance, polydipsia, polyphagia and polyuria. Genitourinary: Positive for decreased urine volume and frequency. Negative for dysuria and hematuria. Musculoskeletal: Negative for joint swelling. Skin: Negative for color change, pallor and rash. Allergic/Immunologic: Negative for food allergies. Neurological: Negative for dizziness, tremors, seizures and light-headedness. Hematological: Negative for adenopathy. Psychiatric/Behavioral: Negative for behavioral problems, self-injury and sleep disturbance. Physical Exam Vitals reviewed. Constitutional: General: He is not in acute distress. HENT: Head: Normocephalic and atraumatic. Right Ear: There is no impacted cerumen. Left Ear: There is no impacted cerumen. Nose: Nose normal. Eyes: Extraocular Movements: Extraocular movements intact. Pupils: Pupils are equal, round, and reactive to light. Cardiovascular: Rate and Rhythm: Normal rate and regular rhythm. Pulmonary: Effort: Pulmonary effort is normal. Breath sounds: Normal breath sounds. Musculoskeletal: General: Normal range of motion. Comments: Right forefoot prosthetic Neurological: Mental Status: He is alert and oriented to person, place, and time. Mental status is at baseline. Psychiatric: Mood and Affect: Mood normal. Diagnoses and all orders for this visit: Diagnoses and all orders for this visit: Routine general medical examination at a health care facility - Lipid Panel; Future - Comprehensive Metabolic Panel; Future - CBC and Differential; Future - PSA, Screen; Future History of amputation of right foot (HCC) - Miscellaneous DME Equipment Hx of cold sores - valACYclovir (VALTREX) 1000 MG tablet; Take 1 (one) tablet (1,000 mg total) by mouth 2 (two) times a day . Acute bilateral low back pain without sciatica - methylPREDNISolone (MEDROL DOSEPACK) 4 mg tablet; Follow package directions . Urinary frequency if dr. Gee not taking on new patients call will refer to dr. Francois - Ambulatory referral to Urology; Future For any new medications prescribed today, patient was educated about indications for the medication, how to take the medication and potential side effects of the medications. documented in this [id number] History of Present illness Narrative* Sean Domínguez DO - 07/01/2023 10:56 AM EDT Images from the original note were not included. HPI Here for yearly wellness, no complaints does labs every other year. No complaints. 42 yo now. 07/01/2023. Uses 1 script of hydrocodone yearly for chronic right foot prosthetic painprn. Vitals: 07/01/23 1032 BP: (!) 126/56 Temp: 98.7 F (37.1 C) Pulse: 72 Resp: 17 SpO2: 98% PT WEIGHT Weight 07/01/2023 10:32 AM 166 lb 10/06/2022 8:05 AM 170 lb 12.8 oz 06/25/2022 7:54 AM 172 lb 11.2 oz 06/19/2021 11:52 AM 176 lb 9.6 oz BP Readings from Last 4 Encounters: 07/01/23 (!) 126/56 10/06/22 129/74 06/25/22 112/76 06/19/21 117/75 Past Medical History: Diagnosis Date Eosinophilic esophagitis 01/25/2020 Hiatal hernia 01/25/2020 Hill grade II Known health problems: none Past Surgical History: Procedure Laterality Date ADENOIDECTOMY EGD N/A 01/25/2020 Procedure: ESOPHAGOGASTRODUODENOSCOPY WITH BIOPSIES and KHAN CHIP PLACEMENT; Surgeon: Deep Stapleton MD; Location: [facility]; Service: General Surgery ESOPHAGEAL MANOMETRY N/A 01/25/2020 Procedure: ESOPHAGEAL MANOMETRY; Surgeon: Deep Stapleton MD; Location: [facility]; Service: General Surgery FOOT AMPUTATION partial right foot amputation SKIN GRAFT Social History Socioeconomic History Marital status: Tobacco Use Smoking status: Never Smokeless tobacco: Never Vaping Use Vaping Use: Never used Substance and Sexual Activity Alcohol use: Yes Comment: occasional Drug use: No Family History Problem Relation Age of Onset No Known Problems Mother No Known Problems Father No Known Problems Sister No Known Problems Brother Current Outpatient Medications Medication Sig Dispense Refill ascorbic acid (VITAMIN C ORAL) Take by mouth once daily . loratadine (CLARITIN) 10 mg tablet Take 1 (one) tablet (10 mg total) by mouth daily . ZINC ORAL Take by mouth once daily . dupilumab (Dupixent Syringe) 300 mg/2 mL Syrg Inject 2 mL (300 mg total) under the skin every 7 days . (Patient not taking: Reported on 07/01/2023 .) 2 mL 11 No current facility-administered medications for this visit. PHQ-9 Depression Screening No documentation. Goals None Review of Systems Constitutional: Negative for chills, fever and unexpected weight change. HENT: Negative for ear pain, mouth sores, rhinorrhea, sinus pain, sore throat, trouble swallowing and voice change. Eyes: Negative for photophobia, pain, discharge and redness. Respiratory: Negative for apnea, cough, chest tightness and shortness of breath. Cardiovascular: Negative for chest pain, palpitations and leg swelling. Gastrointestinal: Negative for abdominal pain, blood in stool, constipation and nausea. Endocrine: Negative for cold intolerance, heat intolerance, polydipsia and polyuria. Genitourinary: Negative for dysuria and frequency. Musculoskeletal: Negative for back pain, gait problem and joint swelling. Skin: Negative for color change, pallor and rash. Allergic/Immunologic: Negative for food allergies and immunocompromised state. Neurological: Negative for dizziness, tremors, seizures and weakness. Hematological: Negative for adenopathy. Does not bruise/bleed easily. Psychiatric/Behavioral: Negative for behavioral problems, dysphoric mood, hallucinations and sleep disturbance. The patient is not nervous/anxious. Physical Exam Vitals reviewed. Constitutional: General: He is not in acute distress. Appearance: He is well-developed. HENT: Head: Normocephalic and atraumatic. Right Ear: External ear normal. Left Ear: External ear normal. Nose: Nose normal. Mouth/Throat: Mouth: Mucous membranes are moist. Eyes: Conjunctiva/sclera: Conjunctivae normal. Pupils: Pupils are equal, round, and reactive to light. Cardiovascular: Rate and Rhythm: Normal rate and regular rhythm. Heart sounds: Normal heart sounds. No murmur heard. Pulmonary: Effort: Pulmonary effort is normal. Breath sounds: Normal breath sounds. No wheezing. Chest: Chest wall: No tenderness. Abdominal: General: Bowel sounds are normal. Palpations: Abdomen is soft. There is no mass. Tenderness: There is no abdominal tenderness. There is no guarding or rebound. Musculoskeletal: General: No tenderness or deformity. Cervical back: Normal range of motion and neck supple. Lymphadenopathy: Cervical: No cervical adenopathy. Skin: General: Skin is warm and dry. Findings: No rash. Neurological: Mental Status: He is alert and oriented to person, place, and time. Mental status is at baseline. Deep Tendon Reflexes: Reflexes are normal and symmetric. Psychiatric: Behavior: Behavior normal. Thought Content: Thought content normal. Judgment: Judgment normal. There are no diagnoses linked to this encounter. Diagnoses and all orders for this visit: Routine general medical examination at a [facility] care facility Acute foot pain, right - HYDROcodone-acetaminophen (NORCO) 5-325 mg per tablet; Take 1 (one) tablet by mouth every 4 (four) hours as needed for pain . For any new medications prescribed today, patient was educated about indications for the medication, how to take the medication and potential side effects of the medications. documented in this [id number] Note* Op Note - Nav Lara DO - 01/31/2023 10:46 PM EDT Operative Report SURGEON: Nav Lara PREOPERATIVE DIAGNOSIS: Acute appendicitis. POSTOPERATIVE DIAGNOSIS: Acute appendicitis. PROCEDURE: Laparoscopic appendectomy. ANESTHESIA: General endotracheal ESTIMATED BLOOD LOSS: minimal SPECIMENS: Appendix COMPLICATIONS: none INDICATIONS AND CONSENT: Shane Lenz is a 42 y.o. male presented to the emergency department withright lower quadrant abdominal pain. CT confirming the presence of acute appendicitis. The risks, benefits, and alternatives of a laparoscopic appendectomy were discussed with the patient, and informed consent was obtained. DESCRIPTION OF PROCEDURE: The patient was taken to the operative room and placed on the operating room table in the supine position. The left arm was tucked to his side. Following the induction of general endotracheal anesthesia, preoperative antibiotics were administered and SCDs were placed to bilateral lower extremities. The abdomen was prepped and draped in the usual sterile fashion. A formaltime-out was performed prior to the start of the procedure. We began by making an 11 mm supraumbilical incision, inserting the Veress needle, and insufflating the abdomen to 15 mmHg of CO2 pressure. After adequate insufflation of the abdominal cavity, the Veress needle was removed and the 11 mm blade less trocar was utilized. This visualized penetration through all layers of the abdominal wall under direct visualization until entrance into the abdominal cavity. The 0 laparoscope was inserted into the 11 mm port. Two additional ports were placed - one 5 mm port was placed in the suprapubic region and the other 5 mm port in the right upper quadrant, both placed under direct visualization. We began by inspecting the abdomen for entry injury or other une xpected pathology. None was appreciated. We then turned our attention to the right lower quadrant where we identified the appendix which was markedly inflamed and no signs of perforation were found. The mesoappendix was ligated with the Ethicon Enseal. Two 0-PDS endoloops were placed across the base of the appendix at the junction with the cecum. One additional endoloop placed slightly more distal on the appendix above the first two ties. The appendix is transected between the ties. The mucosa of the appendiceal stump is cauterized with monopolar cautery. The specimen was removed through the infraumbilical port with an Endo-Catch bag and sent to pathology. The 11 mm port and scope were reinserted for a second look. The mesoappendix was hemostatic. I ran the terminal ileum for greater than2 feet proximal to the ileocecal valve without evidence of a Meckel's diverticulum. The abdomen wasvented of CO2. The infraumbilical port site fascia was closed with an 0-vicryl suture. All skin incisions were closed with 4-0 Monocryl suture in a subcuticular fashion. The incisions were clean and dry, and dermabond was applied. 0.25% Marcaine with epinephrine was injected into the pro-peritonealplane at all three port sites and in the dermis after Dermabond was applied. At the end of the case all instruments, sharps, and sponges were counted and found to be correct x 2. The patient was awoken from anesthesia without event, taken to the PACU in stable condition. T [facility]05-15-2023 Miscellaneous Notes* Op Note - Nav French DO Marco - 01/31/2023 10:46 PM EDT Operative Report SURGEON: Nav Lara PREOPERATIVE DIAGNOSIS: Acute appendicitis. POSTOPERATIVE DIAGNOSIS: Acute appendicitis. PROCEDURE: Laparoscopic appendectomy. ANESTHESIA: General endotracheal ESTIMATED BLOOD LOSS: minimal SPECIMENS: Appendix COMPLICATIONS: none INDICATIONS AND CONSENT: Shane Lenz is a 42 y.o. male presented to the emergency department withright lower quadrant abdominal pain. CT confirming the presence of acute appendicitis. The risks, benefits, and alternatives of a laparoscopic appendectomy were discussed with the patient, and informed consent was obtained. DESCRIPTION OF PROCEDURE: The patient was taken to the operative room and placed on the operating room table in the supine position. The left arm was tucked to his side. Following the induction of general endotracheal anesthesia, preoperative antibiotics were administered and SCDs were placed to bilateral lower extremities. The abdomen was prepped and draped in the usual sterile fashion. A formaltime-out was performed prior to the start of the procedure. We began by making an 11 mm supraumbilical incision, inserting the Veress needle, and insufflating the abdomen to 15 mmHg of CO2 pressure. After adequate insufflation of the abdominal cavity, the Veress needle was removed and the 11 mm blade less trocar was utilized. This visualized penetration through all layers of the abdominal wall under direct visualization until entrance into the abdominal cavity. The 0 laparoscope was inserted into the 11 mm port. Two additional ports were placed - one 5 mm port was placed in the suprapubic region and the other 5 mm port in the right upper quadrant, both placed under direct visualization. We began by inspecting the abdomen for entry injury or other une xpected pathology. None was appreciated. We then turned our attention to the right lower quadrant where we identified the appendix which was markedly inflamed and no signs of perforation were found. The mesoappendix was ligated with the Ethicon Enseal. Two 0-PDS endoloops were placed across the base of the appendix at the junction with the cecum. One additional endoloop placed slightly more distal on the appendix above the first two ties. The appendix is transected between the ties. The mucosa of the appendiceal stump is cauterized with monopolar cautery. The specimen was removed through the infraumbilical port with an Endo-Catch bag and sent to pathology. The 11 mm port and scope were reinserted for a second look. The mesoappendix was hemostatic. I ran the terminal ileum for greater than2 feet proximal to the ileocecal valve without evidence of a Meckel's diverticulum. The abdomen wasvented of CO2. The infraumbilical port site fascia was closed with an 0-vicryl suture. All skin incisions were closed with 4-0 Monocryl suture in a subcuticular fashion. The incisions were clean and dry, and dermabond was applied. 0.25% Marcaine with epinephrine was injected into the pro-peritonealplane at all three port sites and in the dermis after Dermabond was applied. At the end of the case all instruments, sharps, and sponges were counted and found to be correct x 2. The patient was awoken from anesthesia without event, taken to the PACU in stable condition. * Brief Op Note - Nav Lara DO - 01/31/2023 10:44 PM EDT POST OPERATIVE/PROCEDURE NOTE Shane Lenz ([id number]) SURGEON Surgeon(s) and Role: * Nav Lara DO - Primary [employer]ISSILE OPERATIONS Dina Ryan ANESTHESIOLOGIST ADOPTION SOCIAL WORKER: Hi Dean APRN-ADOPTION SOCIAL WORKER SURGICAL STAFF Echocardiograph Technician: Jackie Lang RN Scrub Person: Dina Ryan PROCEDURE PERFORMED Procedure(s) (LRB): APPENDECTOMY LAPAROSCOPIC (Right) PRIMARY CLOSURE Yes ANESTHESIA (type of) General ESTIMATED BLOOD LOSS Minimal DRAINS None BLOOD PRODUCTS None FLUIDS Intake/Output Summary (Last 24 hours) at 01/31/2023 2244 Last data filed at 01/31/2023 2223 Gross per 24 hour Intake 1575 ml Output 10 ml Net 1565 ml PRE OPERATIVE DIAGNOSIS Acute appendicitis [K35.80] POST OPERATIVE DIAGNOSIS Post-Op Diagnosis Codes: * Acute appendicitis [K35.80] FINDINGS Acute appendicitis CONDITION OF PATIENT Stable COMPLICATIONS None GRAFTS AND/OR IMPLANTS See OR Nursing Documentation SPECIMENS Appendix ID Type Source Tests Collected by Time Destination A : Appendix Permanent TISSUE SURGICAL PATHOLOGY REQUEST Nav Lara DO 01/31/[id number] Nav Lara DO January 31, 2023 10:44 PM * Nursing Notes - Gertrude Lopez RN - 01/31/2023 8:20 PM EDT Patient and family updated on expected timeframe to take the patient to the OR. [facility]* Brief Op Note - Nav Lara DO - 01/31/2023 10:44 PM EDT POST OPERATIVE/PROCEDURE NOTE Shane Lenz ([id number]) SURGEON Surgeon(s) and Role: * Nav Lara DO - Primary SPACE AND MISSILE OPERATIONS Dina Ryan ANESTHESIOLOGIST ADOPTION SOCIAL WORKER: Hi Dean APRN-ADOPTION SOCIAL WORKER SURGICAL STAFF Echocardiograph Technician: Jackie Lang RN Scrub Person: Dina Ryan PROCEDURE PERFORMED Procedure(s) (LRB): APPENDECTOMY LAPAROSCOPIC (Right) PRIMARY CLOSURE Yes ANESTHESIA (type of) General ESTIMATED BLOOD LOSS Minimal DRAINS None BLOOD PRODUCTS None FLUIDS Intake/Output Summary (Last 24 hours) at 01/31/2023 2244 Last data filed at 01/31/2023 2223 Gross per 24 hour Intake 1575 ml Output 10 ml Net 1565 ml PRE OPERATIVE DIAGNOSIS Acute appendicitis [K35.80] POST OPERATIVE DIAGNOSIS Post-Op Diagnosis Codes: * Acute appendicitis [K35.80] FINDINGS Acute appendicitis CONDITION OF PATIENT Stable COMPLICATIONS None GRAFTS AND/OR IMPLANTS See OR Nursing Documentation SPECIMENS Appendix ID Type Source Tests Collected by Time Destination A : Appendix Permanent TISSUE SURGICAL PATHOLOGY REQUEST Nav Lara DO 01/31/[id number] Nav Lara DO January 31, 2023 10:44 PM [facility]05-15-2023 Nurse Note* Jackie Lang RN - 01/31/2023 10:32 PM EDT Patient taken to PACU via cart with this RN and ADOPTION SOCIAL WORKER. Report given to DEE Galvin. * Jackie Lang RN - 01/31/2023 9:18 PM EDT OR temp 68deg F OR humidity 46% documented in this [facility] Nurse Surgical operation note* Jackie Lang RN - 01/31/2023 10:32 PM EDT Patient taken to PACU via cart with this RN and ADOPTION SOCIAL WORKER. Report given to DEE Galvin. [facility]05-15-2023 Nurse Surgical operation note* Jackie Lang RN - 01/31/2023 9:18 PM EDT OR temp 68deg F OR humidity 46% [facility]05-15-2023 Emergency department Note* Susanne Richards RN - 01/31/2023 8:55 PM EDT Report given to surgery at this time. Surgery transporting patient upstairs [facility]05-15-2023 Emergency department Note* Susanne Richards RN - 01/31/2023 8:55 PM EDT Report given to surgery at this time. Surgery transporting patient upstairs * Susanne Richards RN - 01/31/2023 5:17 PM EDT Patient placed on continuous 02 monitoring at this time * Susanne Richards RN - 01/31/2023 3:42 PM EDT Report to DEE Prabhakar * IAN Hemphill - 01/31/2023 1:34 PM EDT [facility] gave room #[id number]. * Susanne Richards RN - 01/31/2023 12:06 PM EDT Patient last ate at 5pm yesterday, bratwurst and potato salad documented in this encounterC[facility] Note* Nursing Notes - Gertrude Lopez RN - 01/31/2023 8:20 PM EDT Patient and family updated on expected timeframe to take the patient to the OR. [facility] Emergency department Note* Susanne Richards RN - 01/31/2023 5:17 PM EDT Patient placed on continuous 02 monitoring at this time [facility]05-15-2023 History and physical note* Nav Lara DO - 01/31/2023 4:57 PM EDT Shane Lenz is a 42 y.o. male 01/31/2023 Chief Complaint: RLQ abdominal pain HPI: onset of periumbilical pain yesterday. Pain was tolerable throughout the evening therefore he went to bed. However this morning the pain was more constant. Initially he felt as though it was gasbut with the passage of flatus the pain persisted. He had associated nausea and vomiting all night.He was exposed with family member who had gastroenteritis. He denies any fever or chills. He has not had any diarrhea. White blood cell count only mildly elevated. CT consistent with acute appendicitis. Right lower quadrant tenderness with guarding. He did drink a glass of orange juice this a.m. at8. 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 .No past medical history on file. Past Surgical History: Procedure Laterality Date AMPUTATION TOE OR FOOT partial right Social History Socioeconomic History Marital status: Spouse name: Not on file Number of children: Not on file Years of education: Not on file Highest education level: Not on file Occupational History Not on file Tobacco Use Smoking status: Never Smokeless tobacco: Never Vaping Use Vaping Use: Never used Substance and Sexual Activity Alcohol use: Yes Comment: occasional Drug use: Never Sexual activity: Not on file Other Topics Concern Service Not Asked Blood Transfusions Not Asked Caffeine Concern Not Asked Occupational Exposure Not Asked Hobby Hazards Not Asked Sleep Concern Not Asked Stress Concern Not Asked Weight Concern Not Asked Special Diet Not Asked Back Care Not Asked Exercise Not Asked Bike Helmet Not Asked Seat Belt Not Asked Domestic Violence No Social History Narrative Not on file Social Determinants of Health Financial Resource Strain: Not on file Food Insecurity: Not on file Transportation Needs: Not on file Physical Activity: Not on file Stress: Not on file Social Connections: Not on file Intimate Partner Violence: Not on file Housing Stability: Not on file History reviewed. No pertinent family history. Review of Systems Constitutional: Positive for appetite change. Negative for chills and fever. HENT: Negative. Eyes: Negative. Respiratory: Negative. Cardiovascular: Negative. Gastrointestinal: Positive for abdominal pain, nausea and vomiting. Endocrine: Negative. Genitourinary: Negative. Musculoskeletal: Negative. Allergic/Immunologic: Negative. Neurological: Negative. Hematological: Negative. Psychiatric/Behavioral: Negative. Blood pressure 129/74, pulse 69, temperature 97.4 F (36.3 C), temperature source Oral, resp. rate 16, height 1.803 m (5' 11"), SpO2 100 %. Physical Exam Vitals reviewed. Constitutional: Appearance: He is not ill-appearing. HENT: Head: Normocephalic and atraumatic. Mouth/Throat: Mouth: Mucous membranes are moist. Pharynx: Oropharynx is clear. Eyes: Extraocular Movements: Extraocular movements intact. Pupils: Pupils are equal, round, and reactive to light. Cardiovascular: Rate and Rhythm: Normal rate and regular rhythm. Pulmonary: Effort: Pulmonary effort is normal. Breath sounds: Normal breath sounds. Abdominal: General: Abdomen is flat. Bowel sounds are normal. Palpations: Abdomen is soft. Tenderness: There is abdominal tenderness in the right lower quadrant. There is guarding. There is no rebound. Positive signs include McBurney's sign. Negative signs include Rovsing's sign. Skin: General: Skin is warm and dry. Neurological: General: No focal deficit present. Mental Status: He is alert and oriented to person, place, and time. Psychiatric: Mood and Affect: Mood normal. Behavior: Behavior normal. Results for orders placed or performed during the hospital encounter of 01/31/23 CHEM 7 (LYTES,BUN,CREA,GLUC) Result Value Ref Range Glucose 97 70 - 100 MG/DL BUN 14 7 - 20 MG/DL CREATININE SERUM 0.81 0.66 - 1.25 MG/DL SODIUM 141 136 - 145 MMOL/L POTASSIUM 4.1 3.5 - 5.1 MMOL/L CHLORIDE 103 98 - 107 MMOL/L CARBON DIOXIDE (CO2) 25 22 - 30 MMOL/L ESTIMATED GFR, NON AMER 112 ml/min/1.73sq.m ESTIMATED GFR, 136 ml/min/1.73sq.m GFR COMMENT Average GFR for 40-49 years old = 99. HEPATIC FUNCTION PANEL Result Value Ref Range Albumin 4.4 3.5 - 5.0 G/DL BILIRUBIN, TOTAL 1.0 0.2 - 1.2 MG/DL ALKALINE PHOSPHATASE 70 38 - 126 IU/L AST 17 15 - 41 IU/L BILIRUBIN, DIRECT 0.1 0.0 - 0.2 MG/DL PROTEIN, TOTAL 8.1 6.3 - 8.2 GM/DL ALT 20 17 - 63 IU/L LIPASE Result Value Ref Range LIPASE 39 23 - 300 U/L CBC, EDIF, PLATELET Result Value Ref Range WBC (WHITE BLOOD COUNT) 11.3 (H) 3.6 - 11.0 10*3/uL RBC 4.99 4.0 - 6.1 10*6/uL HEMOGLOBIN (HGB) 14.9 14.0 - 18.0 G/DL HEMATOCRIT (HCT) 44.1 42.0 - 52.0 % MEAN CELL VOLUME 88.3 80.0 - 100.0 FL Mean Cell HGB 29.8 26.0 - 35.0 PG MEAN CELL HGB CONCENTRATION 33.7 27.0 - 37.0 G/DL RBC DISTRIBUTION 12.8 11.5 - 14.5 % PLATELET COUNT 288 130 - 400 10*3/uL MEAN PLATELET VOLUME 9.3 7.4 - 11.0 FL DIFFERENTIAL TYPE AUTO DIFF % NEUTROPHILS 69.4 37.0 - 75.0 % LYMPHOCYTE 16.8 (L) 20.0 - 55.0 % MONOCYTE % 5.9 0.0 - 10.0 % EOSINOPHIL % 6.9 0.0 - 11.0 % BASOPHIL % 1.0 0.0 - 2.0 % Absolute Neutrophil Count 7.8 (H) 1.4 - 6.5 10*3/uL LYMPHOCYTES, ABSOLUTE 1.9 1.2 - 3.4 10*3/uL MONOCYTES, ABSOLUTE 0.7 0.0 - 0.7 10*3/uL ABSOLUTE EOSINOPHIL COUNT 0.8 (H) 0.0 - 0.7 10*3/uL ABSOLUTE BASOPHIL COUNT 0.1 0.0 - 0.2 10*3/uL URINALYSIS, MACRO Result Value Ref Range COLOR, URINE YELLOW YELLOW APPEARANCE, URINE CLEAR CLEAR Specific Cache, Urine 1.025 1.010 - 1.025 PH URINE 7.0 5.0 - 7.0 PROTEIN, URINE NEGATIVE NEGATIVE mg/dl GLUCOSE, URINE NEGATIVE NEGATIVE mg/dl KETONES, URINE NEGATIVE NEGATIVE mg/dl BILIRUBIN, URINE NEGATIVE NEGATIVE BLOOD, URINE DIPSTICK NEGATIVE NEGATIVE NITRITES, URINE NEGATIVE NEGATIVE UROBILINOGEN, URINE 0.2 0.2 - 1.0 E.U./dL LEUKOCYTE ESTERASE, URINE NEGATIVE NEGATIVE Problem List Items Addressed This Visit Digestive Appendicitis - Primary Diagnosis: acute appendicitis Recommendations: laparoscopic appendectomy. Procedure, risks and potential complications were discussed with the patient. Risks include but are not exclusive of bleeding, infection and perforation. Informed consent has been obtained. Plan to do today under general anesthesia. Nav Lara DO No referring provider defined for this encounter. [facility]05-15-[facility]23 History and physical note* Nav Lara DO - 01/31/2023 4:57 PM EDT Shane Lenz is a 42 y.o. male 01/31/2023 Chief Complaint: RLQ abdominal pain HPI: onset of periumbilical pain yesterday. Pain was tolerable throughout the evening therefore he went to bed. However this morning the pain was more constant. Initially he felt as though it was gasbut with the passage of flatus the pain persisted. He had associated nausea and vomiting all night.He was exposed with family member who had gastroenteritis. He denies any fever or chills. He has not had any diarrhea. White blood cell count only mildly elevated. CT consistent with acute appendicitis. Right lower quadrant tenderness with guarding. He did drink a glass of orange juice this a.m. at8. 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 .No past medical history on file. Past Surgical History: Procedure Laterality Date AMPUTATION TOE OR FOOT partial right Social History Socioeconomic History Marital status: Spouse name: Not on file Number of children: Not on file Years of education: Not on file Highest education level: Not on file Occupational History Not on file Tobacco Use Smoking status: Never Smokeless tobacco: Never Vaping Use Vaping Use: Never used Substance and Sexual Activity Alcohol use: Yes Comment: occasional Drug use: Never Sexual activity: Not on file Other Topics Concern Service Not Asked Blood Transfusions Not Asked Caffeine Concern Not Asked Occupational Exposure Not Asked Hobby Hazards Not Asked Sleep Concern Not Asked Stress Concern Not Asked Weight Concern Not Asked Special Diet Not Asked Back Care Not Asked Exercise Not Asked Bike Helmet Not Asked Seat Belt Not Asked Domestic Violence No Social History Narrative Not on file Social Determinants of Health Financial Resource Strain: Not on file Food Insecurity: Not on file Transportation Needs: Not on file Physical Activity: Not on file Stress: Not on file Social Connections: Not on file Intimate Partner Violence: Not on file Housing Stability: Not on file History reviewed. No pertinent family history. Review of Systems Constitutional: Positive for appetite change. Negative for chills and fever. HENT: Negative. Eyes: Negative. Respiratory: Negative. Cardiovascular: Negative. Gastrointestinal: Positive for abdominal pain, nausea and vomiting. Endocrine: Negative. Genitourinary: Negative. Musculoskeletal: Negative. Allergic/Immunologic: Negative. Neurological: Negative. Hematological: Negative. Psychiatric/Behavioral: Negative. Blood pressure 129/74, pulse 69, temperature 97.4 F (36.3 C), temperature source Oral, resp. rate 16, height 1.803 m (5' 11"), SpO2 100 %. Physical Exam Vitals reviewed. Constitutional: Appearance: He is not ill-appearing. HENT: Head: Normocephalic and atraumatic. Mouth/Throat: Mouth: Mucous membranes are moist. Pharynx: Oropharynx is clear. Eyes: Extraocular Movements: Extraocular movements intact. Pupils: Pupils are equal, round, and reactive to light. Cardiovascular: Rate and Rhythm: Normal rate and regular rhythm. Pulmonary: Effort: Pulmonary effort is normal. Breath sounds: Normal breath sounds. Abdominal: General: Abdomen is flat. Bowel sounds are normal. Palpations: Abdomen is soft. Tenderness: There is abdominal tenderness in the right lower quadrant. There is guarding. There is no rebound. Positive signs include McBurney's sign. Negative signs include Rovsing's sign. Skin: General: Skin is warm and dry. Neurological: General: No focal deficit present. Mental Status: He is alert and oriented to person, place, and time. Psychiatric: Mood and Affect: Mood normal. Behavior: Behavior normal. Results for orders placed or performed during the hospital encounter of 01/31/23 CHEM 7 (LYTES,BUN,CREA,GLUC) Result Value Ref Range Glucose 97 70 - 100 MG/DL BUN 14 7 - 20 MG/DL CREATININE SERUM 0.81 0.66 - 1.25 MG/DL SODIUM 141 136 - 145 MMOL/L POTASSIUM 4.1 3.5 - 5.1 MMOL/L CHLORIDE 103 98 - 107 MMOL/L CARBON DIOXIDE (CO2) 25 22 - 30 MMOL/L ESTIMATED GFR, NON AMER 112 ml/min/1.73sq.m ESTIMATED GFR, 136 ml/min/1.73sq.m GFR COMMENT Average GFR for 40-49 years old = 99. HEPATIC FUNCTION PANEL Result Value Ref Range Albumin 4.4 3.5 - 5.0 G/DL BILIRUBIN, TOTAL 1.0 0.2 - 1.2 MG/DL ALKALINE PHOSPHATASE 70 38 - 126 IU/L AST 17 15 - 41 IU/L BILIRUBIN, DIRECT 0.1 0.0 - 0.2 MG/DL PROTEIN, TOTAL 8.1 6.3 - 8.2 GM/DL ALT 20 17 - 63 IU/L LIPASE Result Value Ref Range LIPASE 39 23 - 300 U/L CBC, EDIF, PLATELET Result Value Ref Range WBC (WHITE BLOOD COUNT) 11.3 (H) 3.6 - 11.0 10*3/uL RBC 4.99 4.0 - 6.1 10*6/uL HEMOGLOBIN (HGB) 14.9 14.0 - 18.0 G/DL HEMATOCRIT (HCT) 44.1 42.0 - 52.0 % MEAN CELL VOLUME 88.3 80.0 - 100.0 FL Mean Cell HGB 29.8 26.0 - 35.0 PG MEAN CELL HGB CONCENTRATION 33.7 27.0 - 37.0 G/DL RBC DISTRIBUTION 12.8 11.5 - 14.5 % PLATELET COUNT 288 130 - 400 10*3/uL MEAN PLATELET VOLUME 9.3 7.4 - 11.0 FL DIFFERENTIAL TYPE AUTO DIFF % NEUTROPHILS 69.4 37.0 - 75.0 % LYMPHOCYTE 16.8 (L) 20.0 - 55.0 % MONOCYTE % 5.9 0.0 - 10.0 % EOSINOPHIL % 6.9 0.0 - 11.0 % BASOPHIL % 1.0 0.0 - 2.0 % Absolute Neutrophil Count 7.8 (H) 1.4 - 6.5 10*3/uL LYMPHOCYTES, ABSOLUTE 1.9 1.2 - 3.4 10*3/uL MONOCYTES, ABSOLUTE 0.7 0.0 - 0.7 10*3/uL ABSOLUTE EOSINOPHIL COUNT 0.8 (H) 0.0 - 0.7 10*3/uL ABSOLUTE BASOPHIL COUNT 0.1 0.0 - 0.2 10*3/uL URINALYSIS, MACRO Result Value Ref Range COLOR, URINE YELLOW YELLOW APPEARANCE, URINE CLEAR CLEAR Specific [place], Urine 1.025 1.010 - 1.025 PH URINE 7.0 5.0 - 7.0 PROTEIN, URINE NEGATIVE NEGATIVE mg/dl GLUCOSE, URINE NEGATIVE NEGATIVE mg/dl KETONES, URINE NEGATIVE NEGATIVE mg/dl BILIRUBIN, URINE NEGATIVE NEGATIVE BLOOD, URINE DIPSTICK NEGATIVE NEGATIVE NITRITES, URINE NEGATIVE NEGATIVE UROBILINOGEN, URINE 0.2 0.2 - 1.0 E.U./dL LEUKOCYTE ESTERASE, URINE NEGATIVE NEGATIVE Problem List Items Addressed This Visit Digestive Appendicitis - Primary Diagnosis: acute appendicitis Recommendations: laparoscopic appendectomy. Procedure, risks and potential complications were discussed with the patient. Risks include but are not exclusive of bleeding, infection and perforation. Informed consent has been obtained. Plan to do today under general anesthesia. Nav Lara DO No referring provider defined for this encounter. [facility] Emergency [facility] Note* Susanne Richards RN - 01/31/2023 3:42 PM EDT Report to DEE Prabhakar [facility]05-15-[facility] Emergency department Note* IAN Hemphill - 01/31/2023 1:34 PM EDT [facility] gave room #[id number]. [facility]05-15-2023 Emergency department Note* Susanne Richards RN - 01/31/2023 12:06 PM EDT Patient last ate at 5pm yesterday, bratwurst and potato salad [facility]05-15-2023 History of Present illness Narrative* Lorraine Lara, FILEMON-ACCOUNTING ADMINISTRATIVE ASSISTANT - 01/31/2023 8:50 AM EDT HPI Shane Lenz male 1980 presents to the [facility] with Chief Complaint Patient presents with Abdominal Pain Patient c/o right lower stomach pain, vomiting. Patient states symptoms started last night around 8pm last night. Patient presents with right lower quadrant abdominal pain that started last night. States he was upall night vomiting. He is also had some diarrhea. He thought symptoms were related to a GI illness as another family member recently had similar. He states the pain has worsened. He is concerned for appendicitis. No recorded fevers. History Allergies Allergen Reactions Sulfa Antibiotics Current Outpatient Medications Medication Sig predniSONE 10 MG tablet Take 3 tabs (30mg) PO every day for 5 days (Patient not taking: Reported on01/31/2023) History reviewed. No pertinent family history. No past medical history on file. Past Surgical History: Procedure Laterality Date AMPUTATION TOE OR FOOT partial right Social History Socioeconomic History Marital status: Spouse name: Not on file Number of children: Not on file Years of education: Not on file Highest education level: Not on file Occupational History Not on file Tobacco Use Smoking status: Never Smokeless tobacco: Never Vaping Use Vaping Use: Never used Substance and Sexual Activity Alcohol use: Yes Comment: occasional Drug use: Never Sexual activity: Not on file Other Topics Concern Service Not Asked Blood Transfusions Not Asked Caffeine Concern Not Asked Occupational Exposure Not Asked Hobby Hazards Not Asked Sleep Concern Not Asked Stress Concern Not Asked Weight Concern Not Asked Special Diet Not Asked Back Care Not Asked Exercise Not Asked Bike Helmet Not Asked Seat Belt Not Asked Domestic Violence No Social History Narrative Not on file Social Determinants of Health Financial Resource Strain: Not on file Food Insecurity: Not on file Transportation Needs: Not on file Physical Activity: Not on file Stress: Not on file Social Connections: Not on file Intimate Partner Violence: Not on file Housing Stability: Not on file ROS Review of Systems 8 systems reviewed with patient, negative unless specifically mentioned in history of present illness PHYSICAL EXAM Visit Vitals BP 124/66 (BP Location: Left arm, BP Position: Sitting) Pulse 70 Temp 97.8 F (36.6 C) (Temporal) Resp 22 Ht 1.803 m (5' 11") Wt 76.7 kg (169 lb) SpO2 97% BMI 23.57 kg/m Physical Exam Vitals and nursing note reviewed. Constitutional: General: He is not in acute distress. Appearance: Normal appearance. He is well-developed. He is not ill-appearing or diaphoretic. HENT: Head: Normocephalic. Nose: Nose normal. Mouth/Throat: Mouth: Mucous membranes are moist. Pharynx: Oropharynx is clear. Cardiovascular: Rate and Rhythm: Normal rate and regular rhythm. Heart sounds: Normal heart sounds. Pulmonary: Effort: Pulmonary effort is normal. No respiratory distress. Breath sounds: Normal breath sounds. Abdominal: General: Bowel sounds are normal. There is no distension. Palpations: Abdomen is soft. Tenderness: There is abdominal tenderness in the right lower quadrant. Musculoskeletal: Cervical back: Normal range of motion and neck supple. Skin: General: Skin is warm and dry. Capillary Refill: Capillary refill takes less than 2 seconds. Neurological: General: No focal deficit present. Mental Status: He is alert and oriented to person, place, and time. Psychiatric: Mood and Affect: Mood normal. Behavior: Behavior normal. RESULTS No results found for this or any previous visit (from the past 1 hour(s)). ASSESSMENT/PLAN 1. RLQ abdominal pain No orders of the defined types were placed in this encounter. Discussed limitations of testing in the walk-in clinic. Patient needs higher level of care in the ER for abd pain. He is agreeable to this plan. Is comfortable driving himself. White sheet completed.Stable upon discharge. SHAHLA Alvares 01/31/2023 documented in [facility] History of Present illness Narrative* SHAHLA Manley - 01/07/2023 11:20 AM EDT Patient: Shane Lenz Patient : 1980 Patient Age: 42 y.o. Today's Date: 01/07/2023 Provider: SHAHLA Manley History of Present Illness: Patient here today for evaluation of Chief Complaint Patient presents with Ear Pain Left ear has some drainage and cant hear. Started yesterday evening Patient is here for ear pain on the left side - onset in the last couple days - reports that he hashad a recent cold in the last week. History: Allergies Allergen Reactions Sulfa Antibiotics No past medical history on file. Past Surgical History: Procedure Laterality Date AMPUTATION TOE OR FOOT partial right Social History Tobacco Use Smoking status: Never Smokeless tobacco: Never Vaping Use Vaping Use: Never used Substance Use Topics Alcohol use: Yes Comment: occasional Drug use: Never History reviewed. No pertinent family history. Review of Systems: Review of Systems HENT: Positive for ear pain. Physical Exam: Vitals: 01/07/23 1131 BP: 117/64 Pulse: 65 Resp: 18 Temp: 98.1 degrees F (36.7 degrees C) TempSrc: Temporal SpO2: 98% Weight: 78.5 kg (173 lb) Height: 1.778 m (5' 10") Physical Exam Vitals and nursing note reviewed. HENT: Head: Normocephalic. Right Ear: A middle ear effusion is present. Tympanic membrane is erythematous. Left Ear: Tympanic membrane, ear canal and external ear normal. Nose: Nose normal. Mouth/Throat: Lips: [place]. Pulmonary: Effort: Pulmonary effort is normal. Breath sounds: Normal breath sounds. Neurological: Mental Status: He is alert. Current Medications: Current Outpatient Medications: Amoxicillin-clavulanate 875-125 MG tablet, Take 1 tablet by mouth every 12 hours for 10 days., Disp: 20 tablet, Rfl: 0 predniSONE 10 MG tablet, Take 3 tabs (30mg) PO every day for 5 days, Disp: 15 tablet, Rfl: 0 Health Maintenance List: Health Maintenance Topic Date Due TETANUS Never done HEPATITIS C VIRUS SCREENING Never done COVID-19 VACCINE (1) Never done HIV SCREENING DISCUSSION Never done TDAP (ADULT) Never done LIPID SCREENING Never done INFLUENZA VACCINE (Season Ended) 2023 PNEUMOCOCCAL VACCINE SERIES Aged Out Assessment & Plan: ICD-10-CM 1. Non-recurrent acute suppurative otitis media of left ear without spontaneous rupture of tympanicmembrane H66.002 2. ETD (Eustachian tube dysfunction), bilateral H69.83 Reviewed the medical dx and the POC> He agreed to proceed. Has a antihistamines at home that he can take. Agreed to proceed. All questions were answered No follow-ups on file. Patient was advised to call with any questions or concerns. If symptoms worsen patient was advised to follow up in our office or the Emergency Dept. Benefits, risks, contraindications, and complications of recommended treatments were explained the patient understands and agrees to proceed with plan. documented in [facility] History of Present illness Narrative* Ricarda Holman RN - 10/08/2022 12:05 PM EST [facility] specialty pharmacy requested office note and lab report, faxed at this time to [phone] documented in this [id number] Note* Addendum Note - Deep Stapleton MD - 10/06/2022 1:57 PM ESTAddended by: DEEP STAPLETON on: 10/06/2022 01:57 PM Modules accepted: Orders [id number] Note* Addendum Note - Deep Stapleton MD - 10/06/2022 1:57 PM ESTAddended by: DEEP STAPLETON on: 10/06/2022 01:57 PM Modules accepted: Orders [id number] Miscellaneous Notes* Addendum Note - Deep Stapleton MD - 10/06/2022 1:57 PM ESTAddended by: DEEP STAPLETON on: 10/06/2022 01:57 PM Modules accepted: Orders documented in this [id number] History of Present illness Narrative* Deep Stapleton MD - 10/06/2022 8:25 AM EST [facility] PATIENT: Shane Lenz DATE / TIME: 10/06/22 8:25 AM POS: Office AGE: 42 y.o. : 1980 RACE: [1] SEX: male PCP: Sean Domínguez DO REFERRAL: No ref. provider found TOS: SUBJECTIVE: The patient presents today after recent visit to the [facility] emergency department for esophageal foodbolus. The food bolus eventually passed without specific intervention. He has a known history of eosinophilic esophagitis. He was last seen in my office on 02/13/2020. He had just undergone a heartburn treatment clinic evaluation was found to have a small type I sliding hiatal hernia. Biopsies in the esophagus were positive for EOE. He had been on PPI therapy. He takes Nexium every morning. He does report that Nexium tends to give him nausea. His last EGD was on 01/25/2020. He has not tried any other treatments for the EOE. He has not performed a food elimination diet. He does indicate that he gave up alcohol about 3 weeks ago. OBJECTIVE: BP 129/74 Pulse 86 Ht 5' 10.5" Wt 77.5 kg (170 lb 12.8 oz) SpO2 98% BMI 24.16 kg/m ASSESSMENT: EOE PLAN: 1. I had a detailed discussion with the patient regarding his known diagnosis of EOE. Treatment options were reviewed. We discussed possible EGD with dilation if indicated. We also discussed medical treatment options. At this point the patient would like to try medical treatment first. I am going to start him on Dupixent 300 mg subcutaneous injection weekly. 2. I will have the patient follow-up once he is been on therapy for 3 to 4 weeks. documented in this [id number] Emergency department Note* Ama Ludwig RN - 09/15/2022 1:12 PM EST Patient alert and oriented x 4, states he feels like whatever was caught went down. Patient states he is going to ho home use inhaler and call the doctor he sees for his throat issues. Patient and belongings ambulated off of unit at this time. [facility]12[facility] Emergency department Note* Ama Ludwig RN - 09/15/2022 1:12 PM EST Patient alert and oriented x 4, states he feels like whatever was caught went down. Patient states he is going to ho home use inhaler and call the doctor he sees for his throat issues. Patient and belongings ambulated off of unit at this time. documented in this encounterC[facility] History of Present illness Narrative* Anna Marie Padilla CMA - 06/25/2022 8:48 AM EDT Labs collected left arm. Patient tolerated well * Sean Domínguez DO - 06/25/2022 8:23 AM EDT Images from the original note were not included. HPI Here for yearly wellness.. no complaints. Right foot prosthetic doing well takes only prn pain med when on ladder all day. Here 06/25/2022.. Vitals: 06/25/22 0754 BP: 112/76 Temp: 98.1 F (36.7 C) Pulse: 70 Resp: 16 PT WEIGHT Weight 06/25/2022 172 lb 11.2 oz 06/19/2021 176 lb 9.6 oz 08/02/2020 165 lb 07/31/2020 165 lb BP Readings from Last 4 Encounters: 06/25/22 112/76 06/19/21 117/75 02/13/20 119/73 01/25/20 116/66 Past Medical History: Diagnosis Date Eosinophilic esophagitis 01/25/2020 Hiatal hernia 01/25/2020 Hill grade II Known health problems: none Past Surgical History: Procedure Laterality Date ADENOIDECTOMY EGD N/A 01/25/2020 Procedure: ESOPHAGOGASTRODUODENOSCOPY WITH BIOPSIES and KHAN CHIP PLACEMENT; Surgeon: Deep Stapleton MD; Location: [facility]; Service: General Surgery ESOPHAGEAL MANOMETRY N/A 01/25/2020 Procedure: ESOPHAGEAL MANOMETRY; Surgeon: Deep Stapleton MD; Location: [facility]; Service: General Surgery FOOT AMPUTATION partial right foot amputation SKIN GRAFT Social History Socioeconomic History Marital status: Tobacco Use Smoking status: Never Smokeless tobacco: Never Vaping Use Vaping Use: Never used Substance and Sexual Activity Alcohol use: Yes Comment: occasional Drug use: No Family History Problem Relation Age of Onset No Known Problems Mother No Known Problems Father No Known Problems Sister No Known Problems Brother Current Outpatient Medications Medication Sig Dispense Refill ascorbic acid (VITAMIN C ORAL) Take by mouth once daily . ZINC ORAL Take by mouth once daily . fluticasone propionate (FLOVENT HFA) 220 mcg/actuation inhaler Inhale 2 (two) puffs 2 (two) times aday Rinse mouth after each use . 1 Inhaler 12 No current facility-administered medications for this visit. PHQ-9 Depression Screening No documentation. Goals None Review of Systems Constitutional: Negative for chills, fatigue, fever and unexpected weight change. HENT: Negative for ear pain, mouth sores, rhinorrhea, sinus pressure, sinus pain and voice change. Eyes: Negative for pain, discharge, redness and visual disturbance. Respiratory: Negative for apnea, cough, chest tightness and shortness of breath. Cardiovascular: Negative for chest pain and palpitations. Gastrointestinal: Negative for abdominal pain, blood in stool and constipation. Endocrine: Negative for cold intolerance, heat intolerance, polydipsia, polyphagia and polyuria. Genitourinary: Negative for dysuria, frequency and hematuria. Musculoskeletal: Positive for arthralgias (right foot pain). Negative for joint swelling. Skin: Negative for color change, pallor and rash. Allergic/Immunologic: Negative for food allergies. Neurological: Negative for dizziness, tremors, seizures and light-headedness. Hematological: Negative for adenopathy. Psychiatric/Behavioral: Negative for behavioral problems, self-injury and sleep disturbance. Physical Exam Vitals reviewed. Constitutional: Appearance: He is well-developed. He is not ill-appearing. HENT: Head: Normocephalic and atraumatic. Right Ear: External ear normal. Left Ear: External ear normal. Nose: Nose normal. Eyes: Conjunctiva/sclera: Conjunctivae normal. Cardiovascular: Rate and Rhythm: Normal rate and regular rhythm. Heart sounds: No murmur heard. Pulmonary: Effort: Pulmonary effort is normal. Breath sounds: Normal breath sounds. Musculoskeletal: Cervical back: Neck supple. Skin: General: Skin is warm and dry. Neurological: Mental Status: He is alert and oriented to person, place, and time. Mental status is at baseline. There are no diagnoses linked to this encounter. Diagnoses and all orders for this visit: Routine general medical examination at a health care facility - Comprehensive Metabolic Panel; Future - Lipid Panel; Future - CBC and Differential; Future Acute foot pain, right - HYDROcodone-acetaminophen (NORCO) 5-325 mg per tablet; Take 1 (one) tablet by mouth every 4 (four) hours as needed for pain . For any new medications prescribed today, patient was educated about indications for the medication, how to take the medication and potential side effects of the medications. * Sherine Sol RN - 06/25/2022 8:07 AM EDT Declines PHQ, ZEYAD & all vaccines documented in this [id number] History of Present illness Narrative* Sean Domínguez DO - 06/25/2022 8:23 AM EDT Images from the original note were not included. HPI Here for yearly wellness.. no complaints. Right foot prosthetic doing well takes only prn pain med when on ladder all day. Here 06/25/2022.. Vitals: 06/25/22 0754 BP: 112/76 Temp: 98.1 F (36.7 C) Pulse: 70 Resp: 16 PT WEIGHT Weight 06/25/2022 172 lb 11.2 oz 06/19/2021 176 lb 9.6 oz 08/02/2020 165 lb 07/31/2020 165 lb BP Readings from Last 4 Encounters: 06/25/22 112/76 06/19/21 117/75 02/13/20 119/73 01/25/20 116/66 Past Medical History: Diagnosis Date Eosinophilic esophagitis 01/25/2020 Hiatal hernia 01/25/2020 Hill grade II Known health problems: none Past Surgical History: Procedure Laterality Date ADENOIDECTOMY EGD N/A 01/25/2020 Procedure: ESOPHAGOGASTRODUODENOSCOPY WITH BIOPSIES and KHAN CHIP PLACEMENT; Surgeon: Deep Stapleton MD; Location: [facility]; Service: General Surgery ESOPHAGEAL MANOMETRY N/A 01/25/2020 Procedure: ESOPHAGEAL MANOMETRY; Surgeon: Deep Stapleton MD; Location: [facility]; Service: General Surgery FOOT AMPUTATION partial right foot amputation SKIN GRAFT Social History Socioeconomic History Marital status: Tobacco Use Smoking status: Never Smokeless tobacco: Never Vaping Use Vaping Use: Never used Substance and Sexual Activity Alcohol use: Yes Comment: occasional Drug use: No Family History Problem Relation Age of Onset No Known Problems Mother No Known Problems Father No Known Problems Sister No Known Problems Brother Current Outpatient Medications Medication Sig Dispense Refill ascorbic acid (VITAMIN C ORAL) Take by mouth once daily . ZINC ORAL Take by mouth once daily . fluticasone propionate (FLOVENT HFA) 220 mcg/actuation inhaler Inhale 2 (two) puffs 2 (two) times aday Rinse mouth after each use . 1 Inhaler 12 No current facility-administered medications for this visit. PHQ-9 Depression Screening No documentation. Goals None Review of Systems Constitutional: Negative for chills, fatigue, fever and unexpected weight change. HENT: Negative for ear pain, mouth sores, rhinorrhea, sinus pressure, sinus pain and voice change. Eyes: Negative for pain, discharge, redness and visual disturbance. Respiratory: Negative for apnea, cough, chest tightness and shortness of breath. Cardiovascular: Negative for chest pain and palpitations. Gastrointestinal: Negative for abdominal pain, blood in stool and constipation. Endocrine: Negative for cold intolerance, heat intolerance, polydipsia, polyphagia and polyuria. Genitourinary: Negative for dysuria, frequency and hematuria. Musculoskeletal: Positive for arthralgias (right foot pain). Negative for joint swelling. Skin: Negative for color change, pallor and rash. Allergic/Immunologic: Negative for food allergies. Neurological: Negative for dizziness, tremors, seizures and light-headedness. Hematological: Negative for adenopathy. Psychiatric/Behavioral: Negative for behavioral problems, self-injury and sleep disturbance. Physical Exam Vitals reviewed. Constitutional: Appearance: He is well-developed. He is not ill-appearing. HENT: Head: Normocephalic and atraumatic. Right Ear: External ear normal. Left Ear: External ear normal. Nose: Nose normal. Eyes: Conjunctiva/sclera: Conjunctivae normal. Cardiovascular: Rate and Rhythm: Normal rate and regular rhythm. Heart sounds: No murmur heard. Pulmonary: Effort: Pulmonary effort is normal. Breath sounds: Normal breath sounds. Musculoskeletal: Cervical back: Neck supple. Skin: General: Skin is warm and dry. Neurological: Mental Status: He is alert and oriented to person, place, and time. Mental status is at baseline. There are no diagnoses linked to this encounter. Diagnoses and all orders for this visit: Routine general medical examination at a health care facility - Comprehensive Metabolic Panel; Future - Lipid Panel; Future - CBC and Differential; Future Acute foot pain, right - HYDROcodone-acetaminophen (NORCO) 5-325 mg per tablet; Take 1 (one) tablet by mouth every 4 (four) hours as needed for pain . For any new medications prescribed today, patient was educated about indications for the medication, how to take the medication and potential side effects of the medications. * Sherine Sol RN - 06/25/2022 8:07 AM EDT Declines PHQ, ZEYAD & all vaccines documented in this [id number] Hospital Discharge instructions * Instructions* Alexander Perry MD - 10/22/2021 You can use Tylenol 500 mg every 4 hours as needed for aches or pains along with prescribed medications over the next 3-[address] Laguerre today for follow-up. * Attachments The following attachments cannot be sent through Care Everywhere. * Low Back Pain: General Info (American) * Low Back Pain: Exercises (American) [facility] Emergency [facility] Note* Alexander Perry MD - 10/22/2021 9:09 AM EST Emergency Room Note [facility] EMERGENCY DEPARTMENT Service Date:.10/22/21 PCP: Sean Domínguez Chief Complaint: Chief Complaint Patient presents with Back Pain lower mid back pain for 2-3 weeks. [facility] Shane Lenz is a 41 y.o. male presents to the ED today due to low back pain. Patient had pain in the lower back for the last 2-3 weeks. He cannot recall any injury. His been tothe chiropractor 3 times. He thinks that may have made things worse. He is complaining of a tight pain in the lower back that is exacerbated with movements. He does have a sharp component with movement. There is no shooting pain down the leg. There is no loss of bladder control. He feels like he empties his bladder when he voids. He lost part of his foot when he was 6 years old and a lawnmower accident. He does not walk on his toes on the right foot because of this. His gait is a little off butthis is unchanged. Review of Systems: Review of Systems No recent trauma. No fever or chills no upper respiratory, gastrointestinal, or genitourinary complaints. No history of abnormal or pathologic fractures. Past Medical History: No past medical history on file. Past Surgical History: Past Surgical History: Procedure Laterality Date AMPUTATION TOE OR FOOT partial right Allergies: Allergies Allergen Reactions Sulfa Antibiotics Medications: Patient's Medications New Prescriptions CHLORZOXAZONE 500 MG TABLET Take 1 tablet by mouth 4 times daily as needed for Muscle spasms. IBUPROFEN 800 MG TABLET Take 1 tablet by mouth 3 times daily as needed for Moderate Pain for up to 5 days. Take with food Previous Medications No medications on file Modified Medications No medications on file Discontinued Medications No medications on file Family History: History reviewed. No pertinent family history. Social History: Social History Socioeconomic History Marital status: Spouse name: Not on file Number of children: Not on file Years of education: Not on file Highest education level: Not on file Occupational History Not on file Tobacco Use Smoking status: Never Smoker Smokeless tobacco: Never Used Vaping Use Vaping Use: Never used Substance and Sexual Activity Alcohol use: Yes Drug use: Never Sexual activity: Not on file Other Topics Concern Service Not Asked Blood Transfusions Not Asked Caffeine Concern Not Asked Occupational Exposure Not Asked Hobby Hazards Not Asked Sleep Concern Not Asked Stress Concern Not Asked Weight Concern Not Asked Special Diet Not Asked Back Care Not Asked Exercise Not Asked Bike Helmet Not Asked Seat Belt Not Asked Domestic Violence No Social History Narrative Not on file Social Determinants of Health Financial Resource Strain: Not on file Food Insecurity: Not on file Transportation Needs: Not on file Physical Activity: Not on file Stress: Not on file Social Connections: Not on file Intimate Partner Violence: Not on file Housing Stability: Not on file Physical Exam: Physical Exam 41 year male who is awake and alert. He is oriented person and answers questions appropriately. He has good range motion neck without difficulty or discomfort. There is no tenderness of the posterioraspect the neck. Looking the back and see no signs of trauma. He has some tenderness over the left mid and lower lumbar paraspinous musculature but otherwise I cannot re-create any pain with palpation of the back. He is able to stand and ambulate. He has exacerbation of the pain with flexion and extension of the back as well as rotation. He is able to do knee bend and stand back up. Lasegue's test is negative. When I ask him to stand on his toes he started on just his left toes. He has had partof the right foot amputated as mentioned above. Neuro vasculature is intact distally. Skin is warm and dry. There is no rash. Vital Signs During ED Visit Patient Vitals for the past 24 hrs: BP Temp Temp src Pulse Resp SpO2 Weight 10/22/21 0900 77.1 kg (170 lb) 10/22/21 0859 114/66 98.9 F (37.2 C) Oral 84 22 99 % Orders/Results: Orders Placed This Encounter XR SPINE LUMBOSACRAL 5 VIEWS AMB REFERRAL TO [facility] chlorzoxazone 500 MG tablet ibuprofen 800 MG tablet Results for orders placed or performed in visit on 09/05/20 NOVEL CORONAVIRUS- NASOPHARYNGEAL Specimen: NASOPHARYNGEAL; Fluid/Swab Result Value Ref Range SARS-COV-2, CAMMY NASOPHARYNGEAL Not Detected Radiographic Imaging XR SPINE LUMBOSACRAL 5 VIEWS Final Result IMPRESSION: Dextroconvex curvature possibly positional or from spasm. Otherwise there is mild spondylosis and no other evidence for acute lumbar spine pathology On some images there is a partially seen curvilinear density anterior to the spine although seen at different levels and probably something external to the patient Procedures: Procedures Moderate Sedation Procedure: No ED Summary/MDM No acute findings on the patient's x-ray the LS-spine. His had pain for over 2 weeks. I did want tomake sure there is no evidence of a compression fracture or some other type of pathologic fracture.At this time he is medically stable for discharge. I will place him on Motrin and a muscle relaxer and have him follow- up Dr. Laguerre. I spoke at length with the patient. He understands treatment and is comfortable with this. I did tell him he can take Tylenol along with this as needed for any aches or pains over the next few days. I have written him off work for the next 2 days. I want him to restand let this heal. He had no further questions at this time. He is discharged ambulatory and in good condition. Referral was placed in the computer for Dr. Laguerre. Clinical Impression: 1. Acute bilateral low back pain without sciatica No follow-ups on file. New Prescriptions CHLORZOXAZONE 500 MG TABLET Take 1 tablet by mouth 4 times daily as needed for Muscle spasms. IBUPROFEN 800 MG TABLET Take 1 tablet by mouth 3 times daily as needed for Moderate Pain for up to 5 days. Take with food Discontinued Medications No medications on file An After Visit Summary was printed and given to the patient with above information. . Alexander Perry MD 10/22/21 0952 [facility] History of Present illness Narrative* Sean Domínguez, DO - 06/19/2021 12:39 PM EDT Images from the original note were not included. HPI Here for yearly wellness.. no complaints. Right foot prosthetic doing well takes only prn pain med when on ladder all day. Vitals: 06/19/21 1152 BP: 117/75 Temp: 98.5 F (36.9 C) Pulse: 75 Resp: 16 SpO2: 96% PT WEIGHT Weight 06/19/2021 176 lb 9.6 oz 08/02/2020 165 lb 07/31/2020 165 lb 02/13/2020 163 lb 9.6 oz BP Readings from Last 4 Encounters: 06/19/21 117/75 02/13/20 119/73 01/25/20 116/66 11/21/19 113/69 Past Medical History: Diagnosis Date Eosinophilic esophagitis 01/25/2020 Hiatal hernia 01/25/2020 Hill grade II Known health problems: none Past Surgical History: Procedure Laterality Date ADENOIDECTOMY EGD N/A 01/25/2020 Procedure: ESOPHAGOGASTRODUODENOSCOPY WITH BIOPSIES and KHAN CHIP PLACEMENT; Surgeon: Deep Stapleton MD; Location: [facility]; Service: General Surgery ESOPHAGEAL MANOMETRY N/A 01/25/2020 Procedure: ESOPHAGEAL MANOMETRY; Surgeon: Deep Stapleton MD; Location: [facility]; Service: General Surgery FOOT AMPUTATION partial right foot amputation SKIN GRAFT Social History Socioeconomic History Marital status: Spouse name: Not on file Number of children: Not on file Years of education: Not on file Highest education level: Not on file Occupational History Not on file Tobacco Use Smoking status: Never Smoker Smokeless tobacco: Never Used Vaping Use Vaping Use: Never used Substance and Sexual Activity Alcohol use: Yes Comment: occasional Drug use: No Sexual activity: Not on file Other Topics Concern Not on file Social History Narrative Not on file Social Determinants of Health Financial Resource Strain: Difficulty of Paying Living Expenses: Not on file Food Insecurity: Worried About Running Out of Food in the Last Year: Not on file Ran Out of Food in the Last Year: Not on file Transportation Needs: Lack of Transportation (Medical): Not on file Lack of Transportation (Non-Medical): Not on file Physical Activity: Days of Exercise per Week: Not on file Minutes of Exercise per Session: Not on file Stress: Feeling of Stress : Not on file Social Connections: Frequency of Communication with Friends and Family: Not on file Frequency of Social Gatherings with Friends and Family: Not on file Attends Temple Services: Not on file Active Member of Clubs or Organizations: Not on file Attends Club or Organization Meetings: Not on file Marital Status: Not on file Housing Stability: Unable to Pay for Housing in the Last Year: Not on file Number of Places Lived in the Last Year: Not on file Unstable Housing in the Last Year: Not on file Family History Problem Relation Age of Onset No Known Problems Mother No Known Problems Father No Known Problems Sister No Known Problems Brother Current Outpatient Medications Medication Sig Dispense Refill ascorbic acid (VITAMIN C ORAL) Take by mouth once daily . ZINC ORAL Take by mouth once daily . esomeprazole (NexIUM 24HR) 20 MG capsule Take 2 (two) capsules (40 mg total) by mouth every morningbefore breakfast . 60 capsule 11 fluticasone propionate (FLOVENT HFA) 220 mcg/actuation inhaler Inhale 2 (two) puffs 2 (two) times aday Rinse mouth after each use . 1 Inhaler 12 No current facility-administered medications for this visit. PHQ-9 Depression Screening No documentation. Goals None Review of Systems Constitutional: Negative for chills, fever and unexpected weight change. HENT: Negative for ear pain, facial swelling, mouth sores, sinus pain, sore throat and trouble swallowing. Eyes: Negative for photophobia, pain and visual disturbance. Respiratory: Negative for cough and shortness of breath. Cardiovascular: Negative for chest pain, palpitations and leg swelling. Gastrointestinal: Negative for abdominal pain, blood in stool, constipation and nausea. Endocrine: Negative for polydipsia and polyuria. Genitourinary: Negative for dysuria and frequency. Musculoskeletal: Negative for back pain and gait problem. Skin: Negative for rash. Allergic/Immunologic: Negative for immunocompromised state. Neurological: Negative for dizziness and weakness. Hematological: Negative for adenopathy. Does not bruise/bleed easily. Psychiatric/Behavioral: Negative for dysphoric mood and hallucinations. The patient is not nervous/anxious. Physical Exam Vitals reviewed. Constitutional: General: He is not in acute distress. Appearance: He is well-developed. HENT: Head: Normocephalic and atraumatic. Right Ear: External ear normal. Left Ear: External ear normal. Nose: Nose normal. Eyes: Conjunctiva/sclera: Conjunctivae normal. Pupils: Pupils are equal, round, and reactive to light. Cardiovascular: Rate and Rhythm: Normal rate and regular rhythm. Heart sounds: Normal heart sounds. No murmur heard. Pulmonary: Effort: Pulmonary effort is normal. Breath sounds: Normal breath sounds. No wheezing. Chest: Chest wall: No tenderness. Abdominal: General: Bowel sounds are normal. Palpations: Abdomen is soft. There is no mass. Tenderness: There is no abdominal tenderness. There is no guarding or rebound. Musculoskeletal: General: No tenderness or deformity. Cervical back: Normal range of motion and neck supple. Lymphadenopathy: Cervical: No cervical adenopathy. Skin: General: Skin is warm and dry. Findings: No rash. Neurological: Mental Status: He is alert and oriented to person, place, and time. Mental status is at baseline. Deep Tendon Reflexes: Reflexes are normal and symmetric. Psychiatric: Behavior: Behavior normal. Thought Content: Thought content normal. Judgment: Judgment normal. There are no diagnoses linked to this encounter. Diagnoses and all orders for this visit: Routine general medical examination at a health care facility - Lipid Panel; Future - Comprehensive Metabolic Panel; Future - CBC and Differential; Future Acute foot pain, right - HYDROcodone-acetaminophen (NORCO) 5-325 mg per tablet; Take 1 (one) tablet by mouth every 4 (four) hours as needed for pain . For any new medications prescribed today, patient was educated about indications for the medication, how to take the medication and potential side effects of the medications. * Rosemary Hobbs MA - 06/19/2021 12:02 PM EDT Refused to fill out PHQ & ZEYAD and all vaccines. documented in this encounterOhioHealthConsult note Author Chris rutherford [facility] Note Date/Time April 11, 2025 11:0 0am [facility] Medical Records Department [address] [place] [address] Pre-Anesthesia Evaluation 04/11/25 1056 MR#: [id number] Acct: [id number] Name: SHANE LENZ Rep #:[id number] : 1980 44 From: Chris corral MD PCP: Dr. Sean Domínguez MD Status:REG SDC Y Race: C Location: [place] [address] ASA Classification* ASA Classification ASA Classification: 2 Assessment & Plan Anesthesia* Anesthesia Assessment Anesthesia Assessment: Discussed sedation and/or anesthesia options, risks, benefits, and alternatives with patient/parents/legal guardian/POA. Questions invited. The patient/parents/legal guardian/POA seems to understand and agrees to proceedwith anesthesia plan. Reviewed the physical assessment, medical history, allergy history and patient home medications list prior to surgery/procedure/anesthetic and documented any changes. Performed airway and anesthesia risk assessments. 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 When Was Last Pacemaker Check QUESTION #4 FULL TEXT: You/Your Family Experience fever (hyperthermia) with Anesthesia Last Oral Intake Last Oral intake: Last Oral Intake NPO since 20:00 04/11/25 10:28 Meds taken in AM with sips of water? Meds patient instructed to take am of surgery PONV PONV - pugger helper: PONV - pugger helper Female No 04/08/25 14:26 HX of Motion Sickness No 04/08/25 14:26 HX of N/V After Surgery No 04/08/25 14:26 Non-Smoker No 04/08/25 14:26 Duration of Surgery greater No 04/08/25 14:26 than 60 minutes Number of Risk Factors PONV Score Height & Weight Height & Weight: Anesthesia: Height & Weight Height 5 ft 11 in 04/11/25 10:28 Weight: 79.379 kg 04/11/25 10:28 Body Mass Index (BMI) 24.4 04/11/25 10:28 Respiratory Assessment Respiratory Assessment - pugger helper: Respiratory Tract Infection Hx - pugger helper Hx Respiratory Tract Infection No 04/08/25 14:26 STOP Sleep Apnea STOP Sleep Apnea - pugger helper: STOP Sleep Apnea - pugger helper Hx Hypertension No 04/08/25 14:26 Hx Sleep Apnea No 04/08/25 14:26 CPAP BIPAP Do you snore loudly (louder No 04/08/25 14:26 than talking or can be heard Do you often feel tired/ No 04/08/25 14:26 fatigued/ sleepy during daytime? Has anyone observed you stop No 04/08/25 14:26 breathing during sleep? STOP Results Negative 04/08/25 14:26 QUESTION #5 FULL TEXT : Do you snore loudly (louder than talking or can be heard through closed doors)? 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 Specify any problems Hx of Preganancy in last 3 N/A 04/08/25 14:26 Months Nurse Filling Out Transfusion VCHRISTIN 04/08/25 14:26 & Questions: Date: 04/08/25 04/08/25 14:26 Time: 14:27 04/08/25 14:26 Patient unable to answer at this time (ie. confused, unrespo /Reproduction History /Reproductive History - pugger helper: /Reproductive Hx- pugger helper Hx Now No 04/08/25 14:26 Gestational Age (in weeks): EDC: Hx Hx Para Hx Section SAB No 04/08/25 14:26 Active Medications Active Medications: Current Medications Generic Name Dose Route Start Last Admin Trade Name Freq PRN Reason Stop Dose Admin Lactated Ringer's 1,000 mls @ 15 mls/hr 04/11/25 10:30 04/11/25 10:37 IV 15 mls/hr .Q48H MARY Administration PFSH Medical History Alcohol use Difficulty swallowing Difficulty chewing Non-smoker Home Medications ?Medication ?Instructions ?Recorded ?Last Taken ?Type NK 04/08/25 Unknown History Allergy/AdvReac Type Severity Reaction Status Date / Time corn Allergy Severe OTHER Verified 04/11/25 10:27 Milk Containing Products Allergy Severe OTHER Verified 04/11/25 10:27 (Dairy) peanut (peanuts) Allergy Severe OTHER Verified 04/11/25 10:27 wheat Allergy Severe Other Verified 04/11/25 10:27 Sulfa (Sulfonamide Allergy Other Verified 04/11/25 10:27 Antibiotics) Surgical History History of esophagogastroduodenoscopy (EGD) History of myringotomy Hx of amputation of foot Hx of appendectomy Social History Smoking Status: Never smoker Review of Systems (Anesthesia) ROS Narrative System reviewed and no additional complaints, except as documented. 04/11/25 1100 <Electronically signed by Chris cummings MD> Date _ Chris Fernandez MD Cosigner Signature: Date CC: ~ Signed [facility] Work Phone: Consult note Author THOMAS Woodruff [facility] Note Date/Time April 11, 2025 12:2 0pm [facility] Medical Records Department [address] [place] [address] Anesthesia Postop Eval I 04/11/25 1219 MR#: [id number] Acct: [id number] Name: SHANE LENZ Rep #:[id number] : 1980 44 From: John Woodruff PCP: Dr. Sean Domínguez MD Status:REG [facility] Y Race: C Location: [place] [address] Anesthesia: Postop Eval I Current Vital Signs Temperature: 97.8 F Pulse Rate: 88 Blood Pressure: 106/73 Respiratory Rate: 16 Pulse Ox: 95 Oxygen Delivery Method: Room Air Assessment Airway patent: Yes Spontaneous unlabored respirations: Yes Mental status: Awake nausea: No Vomiting: No Anesthesia Complication: No Fluid Hydration Crystalloid volume administer (ml): 400 Total IV fluid infused: 400 Progress Note Anesthesia document: Postop Eval 1 completed: Yes 04/11/25 1220 <Electronically signed by oJhn Woodruff > Date _ John Emerson Signature: Date CC: ~ Signed [facility] Work Phone: Evaluation note* Diagnosis Routine general medical examination at a health care facility- Primary Acute foot pain, [facility] Diagnosis Acute bilateral low back pain without sciatica- Primary [facility] Diagnosis Routine general medical examination at a health care facility- Primary Acute foot pain, right [facility] Diagnosis Eosinophilic esophagitis- Primary [facility] Diagnosis Non-recurrent acute suppurative otitis media of left ear without spontaneous rupture of tympanic membrane- Primary ETD (Eustachian tube dysfunction), bilateral [facility]* Diagnosis RLQ abdominal pain- Primary Abdominal pain, right lower quadrant documented in this encounter [facility]* Diagnosis Acute appendicitis- Primary Acute appendicitis without mention of peritonitis Acute appendicitis, unspecified acute appendicitis type Appendicitis Appendicitis, unqualified documented in this encounter [facility] note* Diagnosis Routine general medical examination at a health care facility- Primary Acute foot pain, right [facility] Diagnosis Routine general medical examination at a health care facility- Primary History of amputation of right foot (HCC) Hx of cold sores Acute bilateral low back pain without sciatica Urinary frequency [facility]* Diagnosis BPH associated with nocturia Urinary frequency Nocturia Retention of urine Unspecified retention of urine documented in this encounter [facility] Work Phone: Evaluation note* Diagnosis BPH associated with nocturia Nocturia Urinary frequency documented in this encounter [facility] Work Phone: Evaluation note* Diagnosis Preventative health care- Primary Routine general medical examination at a [facility] care facility History of amputation of right foot (HCC) Eosinophilic esophagitis [facility]* Diagnosis Eosinophilic esophagitis- Primary [facility]* Diagnosis Onset Date Resolution Status Admit Date Eosinophilic esophagitis acute February 15, 2025 1:27pm [facility] Work Phone: Reason for referral (narrative)No reason for [facility]: History of Present Illness * Sean Domínguez, - 08/02/2018 12:04 PM EST Formatting of this note may be different from the original. Subjective Patient ID: Shane Lenz is a 37 y.o. male. HPI 3-4 week of acute left great toe infection, dr. gallardo started keflex last without help. Noinjury. No fever. No chills. Vitals: 08/02/18 1138 BP: 116/73 Temp: 98.2 °F (36.8 °C) Pulse: 71 Resp: 16 SpO2: 96% History reviewed. No pertinent past medical history. History reviewed. No pertinent surgical history. Social History Social History Marital status: Single Spouse name: N/A Number of children: N/A Years of education: N/A Social History Main Topics Smoking status: Never Smoker Smokeless tobacco: Never Used Alcohol use No Comment: occasional Drug use: No Sexual activity: Not Asked Other Topics Concern None Social History Narrative None Current Outpatient Prescriptions Medication Sig Dispense Refill cephALEXin (KEFLEX) 500 MG capsule TAKE 1 CAPSULE BY MOUTH 4 TIMES A DAY UNTIL GONE 0 No current facility-administered medications for this visit. Review of Systems Constitutional: Negative for chills and fever. HENT: Negative for facial swelling and mouth sores. Eyes: Negative for pain and visual disturbance. Respiratory: Negative for cough and shortness of breath. Cardiovascular: Negative for chest pain. Gastrointestinal: Negative for abdominal pain. Endocrine: Negative for polydipsia and polyphagia. Genitourinary: Negative for frequency. Musculoskeletal: Positive for arthralgias (red paronychia lateral left great toe..). Objective Physical Exam Constitutional: He is oriented to person, place, and time. He appears well- developed and well-nourished. HENT: Head: Normocephalic and atraumatic. Right Ear: External ear normal. Left Ear: External ear normal. Nose: Nose normal. Eyes: Conjunctivae and EOM are normal. Neck: Neck supple. Cardiovascular: Normal rate and regular rhythm. No murmur heard. Pulmonary/Chest: Effort normal and breath sounds normal. Neurological: He is alert and oriented to person, place, and time. Skin: Skin is warm and dry. Acute paronychia left greattoe.. Psychiatric: He has a normal mood and affect. Assessment/Plan: Diagnoses and all orders for this visit: Paronychia of great toe of left foot - levoFLOXacin (LEVAQUIN) 500 MG tablet; Take 1 (one) tablet (500 mg total) by mouth daily . tendonopathy and dizziness sides explained. Warm soaks/bid. Return in 2 weeks if not better. in this encounter* Sean Domínguez, DO - 01/19/2019 10:45 AM EDT HPI Right prosthetic foot pain laterally use pain meds seldom. 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 There were no vitals filed for this visit. No past medical history on file. No past surgical history on file. Social History Socioeconomic History Marital status: Single Spouse name: Not on file Number of children: Not on file Years of education: Not on file Highest education level: Not on file Social Needs Financial resource strain: Not on file Food insecurity - worry: Not on file Food insecurity - inability: Not on file Transportation needs - medical: Not on file Transportation needs - non-medical: Not on file Occupational History Not on file Tobacco Use Smoking status: Never Smoker Smokeless tobacco: Never Used Substance and Sexual Activity Alcohol use: No Comment: occasional Drug use: No Sexual activity: Not on file Other Topics Concern Not on file Social History Narrative Not on file No family history on file. Current Outpatient Medications Medication Sig Dispense Refill levoFLOXacin (LEVAQUIN) 500 MG tablet Take 1 (one) tablet (500 mg total) by mouth daily . 7 tablet 1 No current facility-administered medications for this visit. PHQ-9 Depression Screening No documentation. Goals None Review of Systems Constitutional: Negative for chills and fever. HENT: Negative for facial swelling and mouth sores. Eyes: Negative for pain and visual disturbance. Respiratory: Negative for cough and shortness of breath. Cardiovascular: Negative for chest pain. Gastrointestinal: Negative for abdominal pain. Endocrine: Negative for polydipsia. Genitourinary: Negative for frequency. Musculoskeletal: Positive for arthralgias (right amputated mid foot pain/ no redness/swelling). Physical Exam Constitutional: He is oriented to person, place, and time. He appears well- developed and well-nourished. HENT: Head: Normocephalic and atraumatic. Right Ear: External ear normal. Left Ear: External ear normal. Nose: Nose normal. Eyes: Conjunctivae and EOM are normal. Neck: Neck supple. Cardiovascular: Normal rate and regular rhythm. No murmur heard. Pulmonary/Chest: Effort normal and breath sounds normal. Musculoskeletal: Right midfoot amputation/tender achilles no visible redness/swelling. Neurological: He is alert and oriented to person, place, and time. Skin: Skin is warm. Psychiatric: He has a normal mood and affect. There are no diagnoses linked to this encounter. Diagnoses and all orders for this visit: History of amputation of right foot (HCC) - HYDROcodone-acetaminophen (NORCO) 5-325 mg per tablet; Take 1 (one) tablet by mouth every 6 (six)hours as needed for pain . Keep appointment with prostheticist Tuesday if just need new prosthesis they can send me the script or if you want to see dr. Josie Mai first call me to set up referral see if she has some input foryour prosthesis/....... For any new medications prescribed today, patient was educated about indications for the medication, how to take the medication and potential side effects of the medications. documented in this encounter* Jorge A Mcconnell CNP - 08/12/2019 10:31 AM EST PATIENT NAME: Shane Lenz [facility] [address] [id number] : 1980 DATE OF VISIT: 08/12/2019 #: [id number] PROVIDER: Jorge A Mcconnell CNP Chief Complaint Patient presents with Pneumonia Here 10 days ago for pneumonia. Completed antibiotic treatment and steroids. Feeling bad again the past 2 day. SUBJECTIVE 38 y.o. male presents Pneumonia (Here 10 days ago for pneumonia. Completed antibiotic treatment andsteroids. Feeling bad again the past 2 day. ) Was here on 08/02 and treated for pneumonia with Zpack which was added to a previous augmentin script. Was also given prednisone which he finished on 08/08. Went to [facility], this after already had a cough for 2 to 3 weeks [facility], "they diagnosed me with pneumonia there". Does not feel like the breathing treatments or inhaler helped. States he was started to feel better but has worsened again over the last 3 days. Was using albuterol inhaler 3 times a day but hasn't used since 08/08. Feels pressure in mid chest "like someone has a weight on me, catching my breath is aproblem." No heart history. Chest pressure is constant, nothing that makes better or worse. There is no radiation. He has had recent occasional sweats. Remembers telling the doctor in [facility] that he was having chest pressure. Feels like he is going to pass out " especially if I exert myself,I get real sweaty and can't catch my breath." CXR on 08/02 was normal. Patient states that he had an anxiety attack in [facility] and one at today's visit which he has never had before. Was lightheaded while driving here today. Does have stress - works 80 hours a week. Pneumonia He complains of chest tightness, cough, difficulty breathing, hoarse voice, shortness of breath andwheezing. There is no hemoptysis or sputum production. Chronicity: ongoing. Episode onset: 5 to 6 weeks ago. The cough is non- productive. Associated symptoms include chest pain, rhinorrhea and a sorethroat (from cough). Pertinent negatives include no fever or trouble swallowing. Exacerbated by: cold or movement. His symptoms are alleviated by rest (steroid and antibiotic). His symptoms are not alleviated by beta-agonist. Risk factors for lung disease include travel. His past medical history issignificant for pneumonia (had once in high school and now). There is no history of asthma or COPD. Chest Pain Chronicity: 2 weeks. The problem occurs constantly. The problem has been unchanged. The pain is present in the substernal region. The pain is at a severity of 2/10. The quality of the pain is described as pressure. The pain does not radiate. Associated symptoms include a cough, diaphoresis, dizziness, near-syncope and shortness of breath. Pertinent negatives include no abdominal pain, back pain, exertional chest pressure, fever, hemoptysis, palpitations, sputum production or vomiting. Nothing worsens the cough. He has tried nothing for the symptoms. Risk factors include male gender and stress. MEDICAL ISSUES History reviewed. No pertinent past medical history. Patient Active Problem List Diagnosis History of amputation of right foot (HCC) SOCIAL HISTORY Social History Socioeconomic History Marital status: Spouse name: Not on file Number of children: Not on file Years of education: Not on file Highest education level: Not on file Occupational History Not on file Social Needs Financial resource strain: Not on file Food insecurity Worry: Not on file Inability: Not on file Transportation needs Medical: Not on file Non-medical: Not on file Tobacco Use Smoking status: Never Smoker Smokeless tobacco: Never Used Substance and Sexual Activity Alcohol use: Yes Frequency: Monthly or less Drinks per session: 1 or 2 Binge frequency: Less than monthly Comment: occasional Drug use: No Sexual activity: Not on file Lifestyle Physical activity Days per week: Not on file Minutes per session: Not on file Stress: Not on file Relationships Social connections Talks on phone: Not on file Gets together: Not on file Attends bahai service: Not on file Active member of club or organization: Not on file Attends meetings of clubs or organizations: Not on file Relationship status: Not on file Other Topics Concern Not on file Social History Narrative Not on file FAMILY HISTORY History reviewed. No pertinent family history. REVIEW OF SYSTEMS Review of Systems Constitutional: Positive for chills and diaphoresis. Negative for fever. HENT: Positive for congestion (nasal), hoarse voice, rhinorrhea, sinus pressure and sore throat (from cough). Negative for sinus pain and trouble swallowing. Eyes: Negative for discharge and itching. Respiratory: Positive for cough, shortness of breath and wheezing. Negative for hemoptysis and sputum production. Cardiovascular: Positive for chest pain and near-syncope. Negative for palpitations and leg swelling. Gastrointestinal: Negative for abdominal pain, diarrhea and vomiting. Musculoskeletal: Negative for back pain. Neurological: Positive for dizziness. MEDICATIONS PRIOR TO VISIT Current Outpatient Medications on File Prior to Visit Medication Sig Dispense Refill ALPRAZolam (XANAX) 0.5 MG tablet Take 0.5 mg by mouth 2 (two) times a day as needed . guaiFENesin-codeine (TUSSI-ORGANIDIN NR) 10-100 mg/5 mL syrup Take 5 mL by mouth 3 (three) times a day as needed for cough (Days supply per fill: 10) . 150 mL 0 acetaminophen (TYLENOL) 500 MG tablet Take 500 mg by mouth every 6 (six) hours as needed for pain . albuterol 90 mcg/actuation inhaler Inhale 2 puffs every 6 (six) hours as needed for wheezing . amoxicillin-clavulanate (AUGMENTIN) 875-125 mg per tablet Take 1 tablet by mouth 2 (two) times a day . azithromycin (Zithromax Z-Narda) 250 MG tablet Take 2 tablets on day one and 1 tablet on days 2 through 5. . (Patient not taking: Reported on 08/12/2019 .) 6 tablet 0 predniSONE (DELTASONE) 20 MG tablet Take 2 tablets daily for 5 days. . (Patient not taking: Reported on 08/12/2019 .) 10 tablet 0 No current facility-administered medications on file prior to visit. ALLERGIES/INTOLERANCES Allergies Allergen Reactions Sulfa (Sulfonamide Antibiotics) Allergy test confirmed as a child OBJECTIVE Vitals: 08/12/19 0953 BP: 110/77 Temp: 98.2 F (36.8 C) Pulse: 91 Resp: 18 SpO2: 98% Body mass index is 24.37 kg/m . 74.8 kg (165 lb) 5' 9" No LMP for male patient. Physical Exam Constitutional: He is oriented to person, place, and time. He appears well- developed and well-nourished. HENT: Right Ear: Tympanic membrane and ear canal normal. Left Ear: Tympanic membrane and ear canal normal. Nose: Nose normal. No mucosal edema or rhinorrhea. Right sinus exhibits no maxillary sinus tenderness and no frontal sinus tenderness. Left sinus exhibits no maxillary sinus tenderness and no frontalsinus tenderness. Mouth/Throat: Oropharynx is clear and moist and mucous membranes are normal. No posterior oropharyngeal edema or posterior oropharyngeal erythema. Eyes: Conjunctivae are normal. Cardiovascular: Normal rate and regular rhythm. Pulmonary/Chest: Breath sounds normal. He is in respiratory distress (very sob for a 3 to 5 minute period). Period of SOB after resp assessment with reported dizziness. Laid back on bed and rested. Lymphadenopathy: He has no cervical adenopathy. Neurological: He is alert and oriented to person, place, and time. Skin: Skin is warm and dry. Psychiatric: He has a normal mood and affect. Patient appears apprehensive Nursing note and vitals reviewed. PROCEDURE Procedures Results Recent Results (from the past 168 hour(s)) ECG 12 Lead Collection Time: 08/12/19 10:56 AM Result Value Ref Range Atrial Rate Ventricular Rate P-R Interval QRS Duration Q-T Interval Q-T Interval (corrected) QTC Calculation (Bezet) P Spade R Spade T Spade ASSESSMENT/PLAN (expressed as patient instructions): 1. Chest pressure ECG 12 Lead aspirin chewable tablet 324 mg Ambulatory referral to Emergency Medicine 2. Lower respiratory infection (e.g., bronchitis, pneumonia, pneumonitis, pulmonitis) DISCONTINUED:albuterol 90 mcg/actuation inhaler DISCONTINUED: doxycycline hyclate (VIBRA-TABS) 100 MG tablet DISCONTINUED: guaiFENesin (MUCINEX) 600 mg 12 hr tablet DISCONTINUED: predniSONE (DELTASONE) 10 MG tablet DISCONTINUED: fluticasone propionate (Flovent HFA) 110 mcg/actuation inhaler 3. Other acute sinusitis, recurrence not specified DISCONTINUED: doxycycline hyclate (VIBRA-TABS) 100 MG tablet DISCONTINUED: guaiFENesin (MUCINEX) 600 mg 12 hr tablet DISCONTINUED: predniSONE (DELTASONE) 10 MG tablet 4. Dizziness Ambulatory referral to Emergency Medicine 5. Shortness of breath Ambulatory referral to Emergency Medicine 6. Abnormal EKG Ambulatory referral to Emergency Medicine ST elevation in anterolateral leads with left atrial enlargement No follow-ups on file. ADDITIONAL CLINICAL COMMENTS Patient became very short of breath during visit with rapid breathing. Encouraged him to take slow breaths. He was feeling dizzy as well and reports feeling dizzy on his drive here today. EKG is abnormal with ST elevation on anterolateral leads and left atrial enlargement. No previous EKG to compare and no hx of CV disease. ASA 324 given and squad called for patient transfer to the ED. ORDERS PLACED THIS VISIT Orders Placed This Encounter Procedures Ambulatory referral to Emergency Medicine ECG 12 Lead MEDICATION LIST AT END OF VISIT Current Outpatient Medications Medication Sig Dispense Refill ALPRAZolam (XANAX) 0.5 MG tablet Take 0.5 mg by mouth 2 (two) times a day as needed . guaiFENesin-codeine (TUSSI-ORGANIDIN NR) 10-100 mg/5 mL syrup Take 5 mL by mouth 3 (three) times a day as needed for cough (Days supply per fill: 10) . 150 mL 0 acetaminophen (TYLENOL) 500 MG tablet Take 500 mg by mouth every 6 (six) hours as needed for pain . albuterol 90 mcg/actuation inhaler Inhale 2 puffs every 6 (six) hours as needed for wheezing . amoxicillin-clavulanate (AUGMENTIN) 875-125 mg per tablet Take 1 tablet by mouth 2 (two) times a day . azithromycin (Zithromax Z-Narda) 250 MG tablet Take 2 tablets on day one and 1 tablet on days 2 through 5. . (Patient not taking: Reported on 08/12/2019 .) 6 tablet 0 predniSONE (DELTASONE) 20 MG tablet Take 2 tablets daily for 5 days. . (Patient not taking: Reported on 08/12/2019 .) 10 tablet 0 No current facility-administered medications for this visit. documented in this encounter* Anitha Mckeon LPN - 08/13/2019 2:23 PM EST Nurse reviewed ER documentation Spoke to: Patient Pt discharge from: [facility] ER date: 08/12/19 Reason for ER visit: cough, SOB, chest pain New Medications and/or treatment include: amoxicillin, dexamethasone, singulair, albuterol, azithromycin Are you taking your medications as directed on the hospital discharge? yes Education/Recommendations: Patient reports he is doing better. He denies any chest pain and cough is improved. He reports some SOB but not too bad. He is eating and drinking ok. Hospital ER revisit within past 30 days? no Same or different diagnosis? n/a Appointments made: Patient declines offer to schedule follow up with pcp at this time. He reports he would like to "give it one more day". documented in this encounter* Ginger Vegas CNP - 11/21/2019 2:07 PM EST [facility] [address] [facility] [address] [facility] [id number] Patient Name: Shane Lenz Age: 39 y.o. Gender: male Referring Physician: Sean Domínguez DO No chief complaint on file. HPI: Patient Primary Symptoms are: heartburn, dysphagia and regurgitation Onset of Symptoms: Patient presents with complaints of dysphagia for at least 8 years. He states over the years the dysphagia has increased. The dysphagia is worse with meats and breads. He has to drink fluids with every meal or the food will get stuck and he will have to being the food back up. He does endorse occasional heartburn and regurgitation mostly when he drink alcohol. He has never had a EGD. He has neverbeen on any heartburn medications. Frequency of Symptoms: Daily with every meals Heartburn and regurgitation on occasion Severity of Symptoms: increasing in severity Sleep Disruption: no Aggravating Factors: alcohol Alleviating Factors: Denies Medications Tried: Denies Past Medical History: Diagnosis Date Known health problems: none Past Surgical History: Procedure Laterality Date FOOT AMPUTATION partial right foot amputation Allergies Allergen Reactions Sulfa (Sulfonamide Antibiotics) Allergy test confirmed as a child No current outpatient medications on file. No current facility-administered medications for this visit. Social History Tobacco Use Smoking status: Never Smoker Smokeless tobacco: Never Used Substance Use Topics Alcohol use: Yes Frequency: Monthly or less Drinks per session: 1 or 2 Binge frequency: Less than monthly Comment: occasional Drug use: No Family History Problem Relation Age of Onset No Known Problems Mother No Known Problems Father No Known Problems Sister No Known Problems Brother REVIEW OF SYSTEMS Pertinent positives are listed in HPI, PMSH, SH, ALL, otherwise all systems reviewed below are negative. The following systems were reviewed: [x] Const (fevers, chills, wt. loss, fatigue) [x] CV (HTN, CP, SAMUELS, edema, DVT) [x] Resp (SOB, pleurisy, asthma, apnea) [x] GI (N, V, D, C, M, abd pain, appetite) [x] Musc (back pain, joint stiffness, gout) [x] Neuro (seizures, syncope, paralysis) [x] Psych (depression, anxiety) [x] Endo (hot/cold intol, polyuria[DM]) [x] Hem/Lymph (Anemia, LA, bleeding) [x] Allerg/Immun (seasonal, immuniz) [x] Eyes (diplopia, cataracts) [x] ENT/mouth (dysphagia, epistaxis) [x] (dysuria, hematuria) [x] Skin/Breast (moles, rash, lumps, nipple changes) Pertinent Positives: See HPI Pertinent Negatives: See HPI Physical Exam: BP 113/69 Pulse 94 Temp 98.5 F (36.9 C) (Oral) Ht 5' 9" Wt 77.6 kg (171 lb) SpO2 95% BMI 25.25 kg/m Body mass index is 25.25 kg/m . Constitutional: Well nourished, well developed person in no acute distress. Ambulates without difficulty. Head: Atraumatic and normocephalic. Face: Within normal limits. Eyes: Pupils equal, round, reactive to light. Sclera white. Mouth: Moist mucous membranes, normal dentation. Neck: supple, trachea midline,no masses, no incisions. Lymphatic: No cervical or inguinal lymphadenopathy. Heart: Regular rate and rhythm. Lungs: Clear to auscultation. Abdomen: Soft, non-distended, non-tender, no heptasplenomegaly, no umbilica, incisional, femoral, or inguinal hernias. Pelvis: Stable, non-tender. Skin: Warm, moist, normal skin turgor. Peripheral Vascular: Palapable carotid, radial, and femoral pulses, no peripheral edema. Neuropsych: Alert and oriented, judgement and insight intact. Normal Gait. Assessment: 1. Pharyngoesophageal dysphagia Ambulatory referral to General Surgery Case Request Operating Room: ESOPHAGOGASTRODUODENOSCOPY WITH POSSIBLE BIOPSIES AND/OR POLYPECTOMY AND/OR OTHER COAGULATION TEATMENT AND/OR POSSIBLE INJECTION SCLEROSIS AND/OR POSSIBLE DILATATION (STRETCHING) AND/OR VARICEAL LIGATION (BANDING), WIT... 2. Heartburn Case Request Operating Room: ESOPHAGOGASTRODUODENOSCOPY WITH POSSIBLE BIOPSIES AND/OR POLYPECTOMY AND/OR OTHER COAGULATION TEATMENT AND/OR POSSIBLE INJECTION SCLEROSIS AND/OR POSSIBLE DILATATION (STRETCHING) AND/OR VARICEAL LIGATION (BANDING), WIT... 3. Gaseous regurgitation Case Request Operating Room: ESOPHAGOGASTRODUODENOSCOPY WITH POSSIBLE BIOPSIES AND/OR POLYPECTOMY AND/OR OTHER COAGULATION TEATMENT AND/OR POSSIBLE INJECTION SCLEROSIS AND/ORPOSSIBLE DILATATION (STRETCHING) AND/OR VARICEAL LIGATION (BANDING), WIT... Orders Placed This Encounter Procedures Case Request Operating Room: ESOPHAGOGASTRODUODENOSCOPY WITH POSSIBLE BIOPSIES AND/OR POLYPECTOMY AND/OR OTHER COAGULATION TEATMENT AND/OR POSSIBLE INJECTION SCLEROSIS AND/OR POSSIBLE DILATATION (STRETCHING) AND/OR VARICEAL LIGATION (BANDING), WIT... Plan: EGD with Biopsy, Khan pH study with Interpretation, High resolution Manometry with Impedance and Interpretation Ginger Vegas CNP documented in this encounter* Deep Stapleton MD - 02/13/2020 8:42 AM EDT [facility] PATIENT: Shane Lenz DATE / TIME: 02/13/20 8:45 AM POS: Office AGE: 39 y.o. : 1980 RACE: [1] SEX: male PCP: Sean Domínguez DO REFERRAL: No ref. provider found TOS: SUBJECTIVE: The patient returns today after undergoing a full heartburn treatment clinic evaluation. He had an EGD which revealed a Hill grade 2 hiatus and findings consistent with eosinophilic esophagitis. Biopsies in the esophagus confirm a diagnosis of eosinophilic esophagitis. Biopsies were negative for any precancer findings. Biopsies of the stomach were negative for H. pylori gastritis. Khan pH testing was negative for abnormal distal esophageal acid exposure. High resolution esophageal manometry revealed a short LES, normal LES resting pressure and relaxation, a 0.7 cm manometrically measured hiatal hernia, and normal esophageal body function. Incomplete bolus clearance was seen on 10% of the supine what swallows on impedance evaluation. The patient indicates that his main symptom is dysphagia of meats and breads. He has not tried a food illumination diet. OBJECTIVE: BP 119/73 Pulse 79 Ht 5' 10" Wt 74.2 kg (163 lb 9.6 oz) SpO2 93% BMI 23.47 kg/m ASSESSMENT: Eosinophilic esophagitis PLAN: 1. The patient has been given information on a food elimination diet and has been instructed to work through the diet over the next several weeks to try to identify the specific underlying etiology of his EOE. 2. Start Nexium 40 mg p.o. daily for EOE to control the inflammatory response 3. The patient has been given a fluticasone inhaler to take when he has flareups of dysphagia due to his EOE documented in this encounter* Glenis North PA-C - 07/31/2020 3:31 PM EST Patient Name: [facility] Location: Shane Lenz [address] [place] [id number] Date Of : Date Of Visit: 1980 07/31/2020 MRN# Provider: [id number] Glenis North PA-C Chief Complaint Patient presents with Covid-19 Screening sore throat, fatigue, muscle aches x 1 day Assessment & Plan 1. Upper respiratory tract infection, unspecified type 2. Cough Return if symptoms worsen or fail to improve. Medical Decision Making PT ASKED TO RETURN SAT/SUN FOR COVID SWABBING; NO CHARGE FOR TODAY. ACCESS CODE PROVIDED; PT TO CALL BACK FOR THIS; Additional Clinical Comments Discussed over the counter medications for symptomatic management and side effects of medications. Recommended taking all medications with food and to stop medications if they develop any signs of anallergic reaction. Educated patient and/or guardian about signs and symptoms that would warrant further immediate evaluation. Recommended that they should return to urgent care, make an appointment with their family physician, or go to the emergency room if symptoms persist or get acutely worse. Recommended follow upwithin the next week with their PCP or to get established with a PCP soon in order to follow up appropriately. Influenza Immunization Patient declined influenza immunization. Refusal documented in the chart under Health Maintenance. [facility] COVID-19 Mask Status: Does the patient have classic COVID-19 symptoms? Yes, the patient has COVID-19 symptoms, the patient WAS wearing a mask during the visit and I (the provider) WAS wearing full PPE (N95 mask, gown, gloves, and face shield) during the visit. Pt was advised to return tue/tuesday day 2.04/21 for testing; He is more than welcome to get testing today and/or return if any concerns. VERIFICATION CODE--[id number] Subjective 39 y.o. male presents with Covid-19 Screening (sore throat, fatigue, muscle aches x 1 day) THE PT HAS NOT BEEN IN CLOSE CONTACT WITH ANYONE CONFIRMED TO HAVE COVID-19 IN THE PAST 14 DAYS. 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 THE PT HAS NOT HAD A FEVER IN THE PAST 24 HOURS. THE PT HAS NOT HAD A COUGH OR SOB IN THE PAST 24 HOURS. THE PT AND PROVIDER WORE MASKS THE ENTIRE VISIT IN URGENT CARE. The provider also used gloves the entire visit in the Urgent Care. Review Of Systems Review of Systems Constitutional: Positive for chills and fatigue. Negative for activity change, appetite change, diaphoresis, fever and unexpected weight change. HENT: Positive for congestion, postnasal drip, rhinorrhea, sinus pressure, sinus pain, sneezing andsore throat. Negative for dental problem, drooling, ear discharge, ear pain, facial swelling, hearing loss, mouth sores, nosebleeds, tinnitus, trouble swallowing and voice change. Eyes: Negative. Respiratory: Positive for cough. Negative for apnea, choking, chest tightness, shortness of breath,wheezing and stridor. Cardiovascular: Negative. Gastrointestinal: Positive for diarrhea. Negative for abdominal distention, abdominal pain, anal bleeding, blood in stool, constipation, nausea, rectal pain and vomiting. Genitourinary: Negative. Musculoskeletal: Negative. Skin: Negative. Neurological: Negative. Hematological: Negative. Psychiatric/Behavioral: Negative for confusion. Medical History Past Medical History: Diagnosis Date Eosinophilic esophagitis 01/25/2020 Hiatal hernia 01/25/2020 Hill grade II Known health problems: none Past Surgical History: Procedure Laterality Date ADENOIDECTOMY EGD N/A 01/25/2020 Procedure: ESOPHAGOGASTRODUODENOSCOPY WITH BIOPSIES and KHAN CHIP PLACEMENT; Surgeon: Deep Stapleton MD; Location: [facility]; Service: General Surgery ESOPHAGEAL MANOMETRY N/A 01/25/2020 Procedure: ESOPHAGEAL MANOMETRY; Surgeon: Deep Stapleton MD; Location: [facility]; Service: General Surgery FOOT AMPUTATION partial right foot amputation SKIN GRAFT Patient Active Problem List Diagnosis History of amputation of right foot (HCC) Pharyngoesophageal dysphagia Heartburn Gaseous regurgitation Social History Social History Tobacco Use Smoking status: Never Smoker Smokeless tobacco: Never Used Substance Use Topics Alcohol use: Yes Frequency: Monthly or less Drinks per session: 1 or 2 Binge frequency: Less than monthly Comment: occasional Drug use: No Family History Family History Problem Relation Age of Onset No Known Problems Mother No Known Problems Father No Known Problems Sister No Known Problems Brother Objective Physical Exam Ht 5' 8" Wt 74.8 kg (165 lb) BMI 25.09 kg/m Vision/Hearing Exam:No exam data present Physical Exam No physical exam, pt to return tue/tuesday for testing; Procedure Notes Procedures Results No results found for this or any previous visit (from the past 168 hour(s)). No orders to display Orders Placed This Visit No orders of the defined types were placed in this encounter. Medication List At End Of Visit Current Outpatient Medications Medication Sig Dispense Refill esomeprazole (NexIUM 24HR) 20 MG capsule Take 2 (two) capsules (40 mg total) by mouth every morningbefore breakfast . 60 capsule 11 fluticasone propionate (FLOVENT HFA) 220 mcg/actuation inhaler Inhale 2 (two) puffs 2 (two) times aday Rinse mouth after each use . 1 Inhaler 12 No current facility-administered medications for this visit. Patient Instructions NO CHARGE FOR TODAY; ADVISED TO RETURN SAT/SUN FOR COVID TEST; ANY WORSENING SYMPTOMS, CONCERNS, RETURN FOR RECHECK. PT VERBALIZED GOOD UNDERSTANDING AND AGREEMENT. SLPAC documented in this encounter* Manuelito Anderson MD - 08/02/2020 11:43 AM EST Patient Name: [facility] Location: Shane Lenz [address] [place] [phone] Date Of : Date Of Visit: 1980 08/02/2020 MRN# Provider: [id number] Manuelito Anderson MD Chief Complaint Patient presents with Fatigue symptoms x3 days Fever Nausea Assessment & Plan 1. Upper respiratory tract infection, unspecified type Covid-19/Influenza Order Algorithm COVID-19, Molecular No follow-ups on file. Medical Decision Making Testing completed and negative. Patient called and informed. precautions discussed. Additional Clinical Comments Discussed over the counter medications for symptomatic management and side effects of medications. Recommended taking all medications with food and to stop medications if they develop any signs of anallergic reaction. Educated patient and/or guardian about signs and symptoms that would warrant further immediate evaluation. Recommended that they should return to urgent care, make an appointment with their family physician, or go to the emergency room if symptoms persist or get acutely worse. Recommended follow upwithin the next week with their PCP or to get established with a PCP soon in order to follow up appropriately. Influenza Immunization Patient declined influenza immunization. Refusal documented in the chart under Health Maintenance. [facility] COVID-19 Mask Status: Does the patient have classic COVID-19 symptoms? Yes, the patient has COVID-19 symptoms, the patient WAS wearing a mask during the visit, I (the provider) WAS wearing full PPE (N95 mask, gown, gloves, and face shield) during the visit. and [employer] Visit was utilized for this patient visit. Patient read general consent to treat, and was then asked if he/she had any questions, which were all answered satisfactorily, and patient consented verbally. Subjective 39 y.o. male presents with Fatigue (symptoms x3 days), Fever, and Nausea Having fever, nausea and fatigue x 3 days. Mild cough. No recent travel. No sick contacts. 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 Has not tried anything for his symptoms. Resting, not taking any meds. Review Of Systems Review of Systems Constitutional: Positive for diaphoresis, fatigue and fever. Negative for appetite change and unexpected weight change. HENT: Positive for sore throat. Negative for congestion, ear discharge, ear pain, rhinorrhea, sinuspressure and sinus pain. Respiratory: Positive for cough. Negative for chest tightness and shortness of breath. Cardiovascular: Negative for chest pain. Gastrointestinal: Negative for abdominal pain and diarrhea. Skin: Negative for rash. Neurological: Negative for headaches. Medical History Past Medical History: Diagnosis Date Eosinophilic esophagitis 01/25/2020 Hiatal hernia 01/25/2020 Hill grade II Known health problems: none Past Surgical History: Procedure Laterality Date ADENOIDECTOMY EGD N/A 01/25/2020 Procedure: ESOPHAGOGASTRODUODENOSCOPY WITH BIOPSIES and KHAN CHIP PLACEMENT; Surgeon: Deep Stapleton MD; Location: [facility]; Service: General Surgery ESOPHAGEAL MANOMETRY N/A 01/25/2020 Procedure: ESOPHAGEAL MANOMETRY; Surgeon: Deep Stapleton MD; Location: [facility]; Service: General Surgery FOOT AMPUTATION partial right foot amputation SKIN GRAFT Patient Active Problem List Diagnosis History of amputation of right foot (HCC) Pharyngoesophageal dysphagia Heartburn Gaseous regurgitation Social History Social History Tobacco Use Smoking status: Never Smoker Smokeless tobacco: Never Used Substance Use Topics Alcohol use: Yes Frequency: Monthly or less Drinks per session: 1 or 2 Binge frequency: Less than monthly Comment: occasional Drug use: No Family History Family History Problem Relation Age of Onset No Known Problems Mother No Known Problems Father No Known Problems Sister No Known Problems Brother Objective Physical Exam Pulse 76 Temp 98.3 F (36.8 C) (Oral) Ht 5' 8" Wt 74.8 kg (165 lb) SpO2 98% BMI 25.09 kg/m Vision/Hearing Exam:No exam data present Physical Exam Vitals signs reviewed. Constitutional: General: He is not in acute distress. Appearance: He is not ill-appearing. HENT: Right Ear: External ear normal. Left Ear: External ear normal. Nose: Rhinorrhea present. No congestion. Mouth/Throat: Mouth: Mucous membranes are moist. Pharynx: No oropharyngeal exudate or posterior oropharyngeal erythema. Eyes: General: Right eye: No discharge. Left eye: No discharge. Conjunctiva/sclera: Conjunctivae normal. Cardiovascular: Rate and Rhythm: Normal rate and regular rhythm. Pulmonary: Effort: Pulmonary effort is normal. No respiratory distress. Breath sounds: Normal breath sounds. Lymphadenopathy: Cervical: No cervical adenopathy. Skin: Capillary Refill: Capillary refill takes less than 2 seconds. Neurological: Mental Status: He is alert. Procedure Notes Procedures Results Recent Results (from the past 168 hour(s)) COVID-19, Molecular Collection Time: 08/02/20 12:31 PM Specimen: Nasopharyngeal; Swab Result Value Ref Range SARS-CoV-2 Not Detected Not Detected Internal Control Pass No orders to display Orders Placed This Visit Orders Placed This Encounter Procedures Covid-19/Influenza Order Algorithm COVID-19, Molecular Medication List At End Of Visit Current Outpatient Medications Medication Sig Dispense Refill esomeprazole (NexIUM 24HR) 20 MG capsule Take 2 (two) capsules (40 mg total) by mouth every morningbefore breakfast . 60 capsule 11 fluticasone propionate (FLOVENT HFA) 220 mcg/actuation inhaler Inhale 2 (two) puffs 2 (two) times aday Rinse mouth after each use . 1 Inhaler 12 No current facility-administered medications for this visit. There are no Patient Instructions on file for this visit. documented in this encounter* Sean Domínguez, DO - 10/26/2019 9:14 AM EST Food stops in throat for a long time but 4 times over the year and very remote tobacco chewer 2016 quit. No odynophagia, steaks/beef are worse. Water is ok. Have to have water to wash all food down. No heartburn/vomiting/wt loss. Heaviest ever been. Vitals: 10/26/19 0859 BP: 108/64 Temp: 98.5 F (36.9 C) Pulse: 70 Resp: 14 PT WEIGHT Weight 10/26/2019 172 lb 9.6 oz 08/12/2019 165 lb 08/12/2019 165 lb 08/02/2019 160 lb BP Readings from Last 4 Encounters: 10/26/19 108/64 08/12/19 134/74 08/12/19 110/77 08/02/19 123/76 Past Medical History: Diagnosis Date Known health problems: none Past Surgical History: Procedure Laterality Date FOOT AMPUTATION partial right foot amputation Social History Socioeconomic History Marital status: Spouse name: Not on file Number of children: Not on file Years of education: Not on file Highest education level: Not on file Occupational History Not on file Social Needs Financial resource strain: Not on file Food insecurity Worry: Not on file Inability: Not on file Transportation needs Medical: Not on file Non-medical: Not on file Tobacco Use Smoking status: Never Smoker Smokeless tobacco: Never Used Substance and Sexual Activity Alcohol use: Yes Frequency: Monthly or less Drinks per session: 1 or 2 Binge frequency: Less than monthly Comment: occasional Drug use: No Sexual activity: Not on file Lifestyle Physical activity Days per week: Not on file Minutes per session: Not on file Stress: Not on file Relationships Social connections Talks on phone: Not on file Gets together: Not on file Attends bahai service: Not on file Active member of club or organization: Not on file Attends meetings of clubs or organizations: Not on file Relationship status: Not on file Other Topics Concern Not on file Social History Narrative Not on file Family History Problem Relation Age of Onset No Known Problems Mother No Known Problems Father No Known Problems Sister No Known Problems Brother Current Outpatient Medications Medication Sig Dispense Refill acetaminophen (TYLENOL) 500 MG tablet Take 500 mg by mouth every 6 (six) hours as needed for pain . albuterol 90 mcg/actuation inhaler Inhale 2 puffs every 6 (six) hours as needed for wheezing . albuterol 90 mcg/actuation inhaler Inhale 2 (two) puffs every 6 (six) hours as needed for wheezing . 1 Inhaler 0 ALPRAZolam (XANAX) 0.5 MG tablet Take 0.5 mg by mouth 2 (two) times a day as needed . amoxicillin-clavulanate (AUGMENTIN) 875-125 mg per tablet Take 1 tablet by mouth 2 (two) times a day . azithromycin (Z-NARDA) 5 day dose pack Take by mouth daily . (Patient not taking: Reported on 10/26/2019 .) 6 tablet 0 azithromycin (Zithromax Z-Narda) 250 MG tablet Take 2 tablets on day one and 1 tablet on days 2 through 5. . (Patient not taking: Reported on 08/12/2019 .) 6 tablet 0 montelukast (SINGULAIR) 10 mg tablet Take 1 (one) tablet (10 mg total) by mouth nightly for 5 doses. 5 tablet 0 predniSONE (DELTASONE) 20 MG tablet Take 2 tablets daily for 5 days. . (Patient not taking: Reported on 08/12/2019 .) 10 tablet 0 No current facility-administered medications for this visit. PHQ-9 Depression Screening No documentation. Goals None Review of Systems Constitutional: Negative for chills, fever and unexpected weight change. HENT: Negative for ear pain, mouth sores, sinus pain, sore throat and trouble swallowing. Eyes: Negative for photophobia and pain. Respiratory: Negative for cough and shortness of breath. Cardiovascular: Negative for chest pain, palpitations and leg swelling. Gastrointestinal: Negative for abdominal pain, blood in stool, constipation and nausea. Dysphagia see hpi Endocrine: Negative for polydipsia and polyuria. Genitourinary: Negative for dysuria and frequency. Musculoskeletal: Negative for back pain and gait problem. Skin: Negative for rash. Allergic/Immunologic: Negative for immunocompromised state. Neurological: Negative for dizziness and weakness. Hematological: Negative for adenopathy. Does not bruise/bleed easily. Psychiatric/Behavioral: Negative for dysphoric mood and hallucinations. The patient is not nervous/anxious. Physical Exam Vitals signs reviewed. Constitutional: Appearance: Normal appearance. He is well-developed. HENT: Head: Normocephalic and atraumatic. Right Ear: Tympanic membrane, ear canal and external ear normal. There is no impacted cerumen. Left Ear: Tympanic membrane, ear canal and external ear normal. There is no impacted cerumen. Nose: Nose normal. Mouth/Throat: Mouth: Mucous membranes are moist. Eyes: Extraocular Movements: Extraocular movements intact. Conjunctiva/sclera: Conjunctivae normal. Pupils: Pupils are equal, round, and reactive to light. Neck: Musculoskeletal: Normal range of motion and neck supple. No neck rigidity or muscular tenderness. Vascular: No carotid bruit. Cardiovascular: Rate and Rhythm: Normal rate and regular rhythm. Heart sounds: Normal heart sounds. No murmur. Pulmonary: Effort: Pulmonary effort is normal. Breath sounds: Normal breath sounds. No wheezing. Chest: Chest wall: No tenderness. Abdominal: General: Bowel sounds are normal. Palpations: Abdomen is soft. There is no mass. Tenderness: There is no abdominal tenderness. There is no guarding or rebound. Musculoskeletal: Normal range of motion. General: Deformity (right foot) present. No tenderness or signs of injury. Lymphadenopathy: Cervical: No cervical adenopathy. Skin: General: Skin is warm and dry. Findings: No rash. Neurological: General: No focal deficit present. Mental Status: He is alert and oriented to person, place, and time. Deep Tendon Reflexes: Reflexes are normal and symmetric. Psychiatric: Behavior: Behavior normal. Thought Content: Thought content normal. Judgment: Judgment normal. There are no diagnoses linked to this encounter Diagnoses and all orders for this visit: Dysphagia, unspecified type - Ambulatory referral to General Surgery; Future Dr. Stapleton for egd for dysphagia. . For any new medications prescribed today, patient was educated about indications for the medication, how to take the medication and potential side effects of the medications. * Sherine Sol RN - 10/26/2019 8:58 AM EST Here for c/o trouble swallowing. Started a few years ago & has recently worsened. Declines PHQ-9 & ZEYAD-7. Remove all medications except Tylenol. Declines flu shot. documented in this encounter* Zia Porter CNP - 08/02/2019 10:45 AM EST PATIENT NAME: Shane Lenz [facility] [address] [place] [phone] : 1980 DATE OF VISIT: 08/02/2019 #: [id number] PROVIDER: Zia Porter CNP Chief Complaint Patient presents with Pneumonia cough x 4 weeks and wheezy. dx pneumonia yesterday. SUBJECTIVE 38 y.o. male presents Pneumonia (cough x 4 weeks and wheezy. dx pneumonia yesterday.) Client was diagnosed with pneumonia and [place] medication [place] the [place]. Client had required vaccinations prior to the trip. Client states he had a cough before the trip. Pneumonia He complains of chest tightness, cough, difficulty breathing, frequent throat clearing, hoarse voice, shortness of breath and wheezing. There is no hemoptysis or sputum production. This is a new problem. The current episode started 1 to 4 weeks ago. The problem occurs constantly. The problem has been gradually worsening. The cough is non-productive. Associated symptoms include chest pain, dyspneaon exertion, ear congestion, ear pain, headaches, malaise/fatigue, myalgias, nasal congestion, rhinorrhea, a sore throat and sweats. Pertinent negatives include no appetite change, fever, postnasal drip or trouble swallowing. Exacerbated by: worse when he wakes in the morning with increased coughing. His symptoms are alleviated by nothing. There are no known risk factors for lung disease. His past medical history is significant for pneumonia. There is no history of asthma, bronchiectasis, bronchitis, COPD or emphysema. MEDICAL ISSUES History reviewed. No pertinent past medical history. Patient Active Problem List Diagnosis History of amputation of right foot (HCC) SOCIAL HISTORY Social History Socioeconomic History Marital status: Spouse name: Not on file Number of children: Not on file Years of education: Not on file Highest education level: Not on file Occupational History Not on file Social Needs Financial resource strain: Not on file Food insecurity: Worry: Not on file Inability: Not on file Transportation needs: Medical: Not on file Non-medical: Not on file Tobacco Use Smoking status: Never Smoker Smokeless tobacco: Never Used Substance and Sexual Activity Alcohol use: Yes Frequency: Monthly or less Drinks per session: 1 or 2 Binge frequency: Less than monthly Comment: occasional Drug use: No Sexual activity: Not on file Lifestyle Physical activity: Days per week: Not on file Minutes per session: Not on file Stress: Not on file Relationships Social connections: Talks on phone: Not on file Gets together: Not on file Attends bahai service: Not on file Active member of club or organization: Not on file Attends meetings of clubs or organizations: Not on file Relationship status: Not on file Other Topics Concern Not on file Social History Narrative Not on file FAMILY HISTORY No family history on file. REVIEW OF SYSTEMS Review of Systems Constitutional: Positive for activity change, chills, diaphoresis, fatigue and malaise/fatigue. Negative for appetite change and fever. HENT: Positive for congestion, ear pain, hoarse voice, rhinorrhea and sore throat. Negative for postnasal drip and trouble swallowing. Respiratory: Positive for cough, shortness of breath and wheezing. Negative for hemoptysis and sputum production. Cardiovascular: Positive for chest pain and dyspnea on exertion. Chest pain with cough. Musculoskeletal: Positive for myalgias. Neurological: Positive for headaches. MEDICATIONS PRIOR TO VISIT Current Outpatient Medications on File Prior to Visit Medication Sig Dispense Refill albuterol 90 mcg/actuation inhaler Inhale 2 puffs every 6 (six) hours as needed for wheezing . ALPRAZolam (XANAX) 0.5 MG tablet Take 0.5 mg by mouth 2 (two) times a day as needed . amoxicillin-clavulanate (AUGMENTIN) 875-125 mg per tablet Take 1 tablet by mouth 2 (two) times a day . acetaminophen (TYLENOL) 500 MG tablet Take 500 mg by mouth every 6 (six) hours as needed for pain . No current facility-administered medications on file prior to visit. ALLERGIES/INTOLERANCES Allergies Allergen Reactions Sulfa (Sulfonamide Antibiotics) Allergy test confirmed as a child OBJECTIVE BP 123/76 Pulse 81 Temp 98 F (36.7 C) (Oral) Resp 18 Ht 5' 10" Wt 72.6 kg (160 lb) [id number]% Comment: post neb tx MKK BMI 22.96 kg/m Physical Exam Constitutional: He is oriented to person, place, and time. He appears well- developed and well-nourished. HENT: Head: Normocephalic and atraumatic. Right Ear: Tympanic membrane, external ear and ear canal normal. Left Ear: Tympanic membrane, external ear and ear canal normal. Nose: Mucosal edema present. Right sinus exhibits no maxillary sinus tenderness and no frontal sinus tenderness. Left sinus exhibits no maxillary sinus tenderness and no frontal sinus tenderness. Mouth/Throat: Uvula is midline and mucous membranes are normal. Posterior oropharyngeal erythema present. No oropharyngeal exudate or posterior oropharyngeal edema. Neck: Neck supple. Cardiovascular: Normal rate, regular rhythm and normal heart sounds. Pulmonary/Chest: Effort normal and breath sounds normal. No respiratory distress. He has no wheezes. He has no rales. Lymphadenopathy: He has no cervical adenopathy. Neurological: He is alert and oriented to person, place, and time. Skin: Skin is warm and dry. Psychiatric: He has a normal mood and affect. Nursing note and vitals reviewed. PROCEDURE Procedures Results No results found for this or any previous visit (from the past 168 hour(s)). ASSESSMENT/PLAN (expressed as patient instructions): 1. Pneumonia due to infectious organism, unspecified laterality, unspecified part of lung XR Chest AP/PA and LAT ipratropium-albuterol (DUO-NEB) 0.5-2.5 mg/3 ml nebulizer solution 3 mL 2. Acute lower respiratory tract infection azithromycin (Zithromax Z-Narda) 250 MG tablet predniSONE (DELTASONE) 20 MG tablet guaiFENesin-codeine (TUSSI-ORGANIDIN NR) 10-100 mg/5 mL syrup No follow-ups on file. ADDITIONAL CLINICAL COMMENTS Client is non-toxic and in no distress. Chest X-ray negative for infiltrates. I added Zithromax andmore prednisone to his Augmentin. I also prescribed albuterol and cough medication with codeine. Client feels better after the aerosol treatment. Encouraged flu vaccination when his symptoms improve.Follow up in ER if unimproved with medication in next few days or for worsening of his symptoms. ORDERS PLACED THIS VISIT Orders Placed This Encounter Procedures XR Chest AP/PA and LAT MEDICATION LIST AT END OF VISIT Current Outpatient Medications Medication Sig Dispense Refill albuterol 90 mcg/actuation inhaler Inhale 2 puffs every 6 (six) hours as needed for wheezing . ALPRAZolam (XANAX) 0.5 MG tablet Take 0.5 mg by mouth 2 (two) times a day as needed . amoxicillin-clavulanate (AUGMENTIN) 875-125 mg per tablet Take 1 tablet by mouth 2 (two) times a day . acetaminophen (TYLENOL) 500 MG tablet Take 500 mg by mouth every 6 (six) hours as needed for pain . azithromycin (Zithromax Z-Narda) 250 MG tablet Take 2 tablets on day one and 1 tablet on days 2 through 5. . 6 tablet 0 guaiFENesin-codeine (TUSSI-ORGANIDIN NR) 10-100 mg/5 mL syrup Take 5 mL by mouth 3 (three) times a day as needed for cough (Days supply per fill: 10) . 150 mL 0 predniSONE (DELTASONE) 20 MG tablet Take 2 tablets daily for 5 days. . 10 tablet 0 No current facility-administered medications for this visit. documented in this encounter Assessments Diagnosis Paronychia of great toe of l eft foot - Primary Diagnosis History of amputation of right foot (HCC)- Primary Diagnosis Lower respiratory infection (e.g., bronchitis, pneumonia, pneumonitis, pulmonitis) Other acute sinusitis, recurrence not specified Chest pressure Other chest pain Dizziness Dizziness and giddiness Shortness of breath Abnormal EKG Nonspecific abnormal electrocardiogram (ECG) (EKG) Diagnosis Pharyngoesophageal dysphagia Dysphagia, pharyngoesophageal phase Heartburn Gaseous regurgitation Flatulence, eructation, and gas pain Diagnosis Pharyngoesophageal dysphagia Dysphagia, pharyngoesophageal phase Heartburn Gaseous regurgitation Flatulence, eructation, and gas pain Eosinophilic esophagitis Diagnosis Eosinophilic esophagitis Diagnosis Upper respiratory tract infection, unspecified type- Primary Cough Diagnosis Upper respiratory tract infection, unspecified type- Primary Diagnosis Dysphagia, unspecified type Diagnosis SOB (shortness of breath) Shortness of breath Wheezing Diagnosis Pneumonia due to infectious organism, unspecified laterality, unspecified part of lung- Primary Acute lower respiratory tract infection Advance Directives Documents on File Type Date Recorded 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 Advance Directives and Livin g Will 08/12/2019 12:26 PM Documents on File Type Date Recorded 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 Advance Directives and Livin g Will 08/12/2019 12:26 PM Documents on File Type Date Recorded 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 Advance Directives and Livin g Will 10/26/2019 8:44 AM Documents on File Type Date Recorded 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 Advance Directives and Livin g Will 01/25/2020 6:39 AM Documents on File Type Date Recorded 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 No April 08, 2025 2:26pm Summary Purpose Family History No Family History Records FoundNo Family History Records FoundNo Family History Records FoundNo Family History Records FoundNo Family History Records FoundNo Family History Records FoundNo Family History Records FoundNo Family History Records FoundNo Family History Records FoundNo Family History Records FoundNo Family History Records FoundNo Family History Records FoundNo Family History Records Found Reason for Referral Status Reason Specialty Diagnoses / Procedures Referred By Contact Referred To Contact Authorized Emergency Medicine Diagnoses Chest pressure Dizziness Shortness of breath Abnormal EKG Jorge A Mcconnell, ACCOUNTING ADMINISTRATIVE ASSISTANT [address] [place] [address] Status Reason Specialty Diagnoses / Procedures Referred By Contact Referred To Contact Authorized Cardiology Diagnoses Chest pressure Procedures ECG 12 Lead Jorge A Mcconnell, ACCOUNTING ADMINISTRATIVE ASSISTANT [address] [place] [address] Status Reason Specialty Diagnoses / Procedures Referred By Contact Referred To Contact Authorized General Surgery Diagnoses Dysphagia, unspecified type Sean Domínguez, DO [address] [place] [address] Deep Stapleton MD [address] [facility] [address] [place] [id number] Specialty Diagnoses / Procedures Referred By Contact Referred To Contact Physical Medicine & Rehabilitation Diagnoses Acute bilateral low back pain without sciatica Alexander Perry MD [address] [place] [address] Faith Laguerre, DO [address] [place] [address] Referral ID Status Reason Start Date Expiration Date V isits Requested Visits Authorized [id number] New Request 10/22/2021 11/16/2022 1 1 Specialty Diagnoses / Procedures Referred By Pavan french Referred To Contact Procedures INPATIENT ADMISSION NOTIFICATION Nav Lara, DO [address] [place] [address] Referral ID Status Reason Start Date Expiration Date V isits Requested Visits Authorized [id number] New Request 01/31/2023 02/25/2024 1 1 Instructions * Patient Instructions* Jorge A Mcconnell CNP - 08/12/2019 10:55 AM EST Going to [facility] ER by squad for further evaluation. documented in this encounter* Patient Instructions* Glenis North PA-C - 07/31/2020 3:40 PM EST NO CHARGE FOR TODAY; ADVISED TO RETURN SAT/SUN FOR COVID TEST; ANY WORSENING SYMPTOMS, CONCERNS, RETURN FOR RECHECK. PT VERBALIZED GOOD UNDERSTANDING AND AGREEMENT. SLPAC documented in this encounter* Patient Instructions* Manuelito Anderson MD - 08/02/2020 1:03 PM EST [facility] COVID-19 Post-swabbing Instructions We will do our best to update you as soon as we receive your test results, but if we had to send your test to be run at the lab, you may see the results on MyChart or receive a call from [facility] before we are able to contact you. You should receive a call from our COVID-19 results provider as soon as possible. If you test POSITIVE for COVID-19: Isolate until: - it has been 10 days since you developed symptoms AND - you have been without a fever (100.4 F) for at least 24 hours without the use of fever reducing medication AND - your symptoms are improving Isolation is when you test positive for COVID-19 and is meant to keep the infected person away fromall others, even in their own home. If you live with others, stay in a specific sick room or area and away from other people or animals, including pets. Use a separate bathroom, if available. Seek emergency medical care immediately if you develop worsening warning signs including: - trouble breathing - persistent pain or pressure in the chest - new confusion - inability to wake or stay awake - bluish lips or face It is not recommended by the CDC to have another COVID-19 test done in order to discontinue isolation or return to work/school. We can provide return to work and school documentation as needed. If you test NEGATIVE for COVID-19: If you are under a 14 day quarantine because of significant exposure defined as close contact with someone that has a laboratory confirmed infection from COVID- 19 or that person was diagnosed by a medical professional, then a negative COVID-19 test does not clear you from the 14 day quarantine. Youwere likely not clinically infectious at the time of the test. This does not mean that you will notget sick and develop symptoms. It is possible that you were in the early phase of the infection at the time of your test and you could be positive later. For these reasons: 1) If the test was due to having symptoms WITH significant exposure, you should remain in quarantine: - for the full 14 days AND - you have been without a fever (100.4 F) for at least 24 hours without the use of fever reducing medication AND - your symptoms are improving If you are unable to separate yourself completely from the COVID-19 positive person (i.e. parent caring for a child), CDC guidelines recommend you quarantine for 24 days (10 days from symptom onset of the COVID positive person PLUS 14 additional days). 2) If the test was due to symptoms WITHOUT significant exposure, you may return to work/school if: - you have been without a fever (100.4 F) for at least 24 hours without the use of fever reducing medication AND - your symptoms are improving When Do I Self-Quarantine? You should quarantine if you have had a significant exposure which is defined as having been in close contact (as defined below) with someone that has a laboratory confirmed infection from COVID-19 or that person was diagnosed by a medical professional. This includes contact within 48 hours prior to when the COVID-19 positive person developed symptoms. - Quarantine is used to keep someone who might have been exposed to COVID-19 away from others. - Quarantine helps prevent spread of disease that can occur before a person knows they are sick or if they are infected with the virus without feeling symptoms. - People in quarantine should stay home, separate themselves from others, monitor their health, andfollow directions from their state or local health department. What counts as close contact? - You were within 6 feet of someone who has COVID-19 for at least 15 minutes - You provided care at home to someone who is sick with COVID-19 - You had direct physical contact with the person (touched, hugged, or kissed them) - You shared eating or drinking utensils - They sneezed, coughed, or somehow got respiratory droplets on you When and How Will I Get Results? Tests performed in the clinic will be available within 15-20 minutes from initiation of test. If your test was sent out to the lab for testing, it could take anywhere from 1-5 days after your specimen is collected. The provider/practice who placed the order for your test will notify you of your results. - If you have an active [employer] account, and your COVID-19 test is negative (not detected), then you will be notified through your [employer] account. You should call the urgent care if you have any further questions. - If your COVID-19 test is positive (detected), you will receive a phone call to discuss your results and answer any questions you might have at that time. Please make sure [employer] has your updated phone number so we can contact you. [facility] will notify the [place] [facility] of any positive results to comply with state regulations. What Happens After I Get Tested if I Develop Worsening COVID-19 Symptoms? All patients should self-quarantine at home until they receive their test results. While self-quarantining, contact your PCP or return to the urgent care if you develop any of the following: - A fever of 103 degrees F (39.4 C) or higher - A fever that lasts more than 3 days without medication - A fever that returns after being gone for more than 24 hours - Chest pain or difficulty breathing - A worsening of current symptoms For work concerns, please contact your employer's HR department. How Do I Self-Quarantine? - Stay home until 14 days after last exposure and maintain social distance (at least 6 feet) from others at all times - Avoid contact with people at higher risk for severe illness from COVID-19 - Self-monitor for symptoms: - Check temperature twice a day - Watch for fever (100.4F or higher), cough, shortness of breath, or other CDC recognized symptoms of COVID-19 If I test positive, what about those with which I have had close contact (household members, partners, close friends, etc)? Anyone with close contact (as defined above) within 48 hours prior to when the COVID-19 positive person developed symptoms should self-quarantine for 14 days as above. What Do I Do If I am Sick? Stay Home: If you are sick, stay home from work, school, public places, and social gatherings Social Distance: maintain 6 feet of distance from other people. Monitor Your Symptoms: If you develop fever, shortness of breath, confusion, or any respiratory symptoms, please notify your doctor immediately Cover Your Cough: Cough and sneeze into your shirt sleeve or inner elbow. Do not cough into your hands or into the air. If available, cough into a tissue and throw it into a trash can. Wash Your Hands: Wash hands often with soap and warm water and/or alcohol based hand buttonhole maker, scrubbing your hands for at least 20 seconds. Wash your hands after sneezing or coughing, after going to the bathroom, and before eating or drinking. Wear a Mask: Wear a face mask when around others. Always wear a face mask (if able) if you have to leave your home Don't Touch: avoid touching your eyes, nose, and mouth Don't Share: avoid sharing items with others as they can spread infection Call First: If you do need to seek urgent medical care, call the facility first to let them know you are on your way Other COVID Questions? CDC - https://www.cdc.gov/coronavirus/2019-ncov/index.html - https://www.cdc.gov/coronavirus/2019-ncov/ul-qsr-fjf-sick/quarantine.html [facility] - Website: https://coronavirus.[place].gov/wps/portal/gov/covid-19/home - Hotline: 968-7-PHP-ODH (248-537-6643) [facility]: https://blog.Dotour.com.Moviles.com/series/vyweu-09-avbsuabmxbh-toolkit/ documented in this encounter* Patient Instructions* Zia Porter CNP - 08/02/2019 11:44 AM EST Pneumonia: Care Instructions Your Care Instructions Pneumonia is an infection of the lungs. Most cases are caused by infections from bacteria or viruses. Pneumonia may be mild or very severe. If it is caused by bacteria, you will be treated with antibiotics. It may take a few weeks to a few months to recover fully from pneumonia, depending on how sickyou were and whether your overall health is good. Follow-up care is a montaño part of your treatment and safety. Be sure to make and go to all appointments, and call your doctor if you are having problems. It's also a good idea to know your test resultsand keep a list of the medicines you take. How can you care for yourself at home? Take your antibiotics exactly as directed. Do not stop taking the medicine just because you are feeling better. You need to take the full course of antibiotics. Take your medicines exactly as prescribed. Call your doctor if you think you are having a problem with your medicine. Get plenty of rest and sleep. You may feel weak and tired for a while, but your energy level will improve with time. To prevent dehydration, drink plenty of fluids, enough so that your urine is light yellow or clear like water. Choose water and other caffeine-free clear liquids until you feel better. If you have kidney, heart, or liver disease and have to limit fluids, talk with your doctor before you increase the amount of fluids you drink. Take care of your cough so you can rest. A cough that brings up mucus from your lungs is common with pneumonia. It is one way your body gets rid of the infection. But if coughing keeps you from resting or causes severe fatigue and chest-wall pain, talk to your doctor. He or she may suggest that youtake a medicine to reduce the cough. Use a vaporizer or humidifier to add moisture to your bedroom. Follow the directions for cleaning the machine. Do not smoke or allow others to smoke around you. Smoke will make your cough last longer. If you need help quitting, talk to your doctor about stop-smoking programs and medicines. These can increase your chances of quitting for good. Take an kacb-dzr-cfvgfzs pain medicine, such as acetaminophen (Tylenol), ibuprofen (Advil, Motrin),or naproxen (Aleve). Read and follow all instructions on the label. Do not take two or more pain medicines at the same time unless the doctor told you to. Many pain medicines have acetaminophen, which is Tylenol. Too much acetaminophen (Tylenol) can be harmful. If you were given a spirometer to measure how well your lungs are working, use it as instructed. This can help your doctor tell how your recovery is going. To prevent pneumonia in the future, talk to your doctor about getting a flu vaccine (once a year) and a pneumococcal vaccine (one time only for most people). When should you call for help? Call 911 anytime you think you may need emergency care. For example, call if: You have severe trouble breathing. Call your doctor now or seek immediate medical care if: You cough up dark brown or bloody mucus (sputum). You have new or worse trouble breathing. You are dizzy or lightheaded, or you feel like you may faint. Watch closely for changes in your health, and be sure to contact your doctor if: You have a new or higher fever. You are coughing more deeply or more often. You are not getting better after 2 days (48 hours). You do not get better as expected. Where can you learn more? Log into your personal health record on https://Sparkplay Mediat.ParQnow and enter D336 in the "Education" box to learn more about "Pneumonia: Care Instructions." Current as of: May 24, 2018 Content Version: [id number] [employer] Care instructions adapted under license by your healthcare professional. If you have questions about a medical condition or this instruction, always ask your healthcare professional. [employer] disclaims any warranty or liability for your use of this information. Follow up in three to five days if unimproved. Go to the Emergency Department if symptoms worsen. documented in this encounter Discharge Instructions * Attachments The following attachments cannot be sent through Care Everywhere. * Eosinophilic Esophagitis (American) * Anesthesia: General Info (American) documented in this encounter* Instructions* Jose Kenney MD - 08/12/2019 Patient to follow up with PCP in 1-2 days or return here at any time for new, worse or persistent symptoms. Patient to read and follow all pharmacy instructions for medication, if any questions ask the pharmacist, their PCP or return here If prescribed opiate pain meds please try medications with fewer side effects and less addictive properties such as Tylenol or Ibuprofen do not take Tylenol with the opiate pain meds * Attachments The following attachments cannot be sent through Care Everywhere. * Wheezing or Bronchoconstriction (American) * SOB (Shortness of Breath) (American) documented in this encounter Chief Complaint and Reason for Visit Chief Complaint Admit Date EOSINOPHILIC ESOPHAGITIS February 15, 2025 1:27pm INT LAB ORDER February 15, 2025 2:07p m Reason for Visit Admit Date Eosinophilic esophagitis February 15, 2025 1:27pm Chief Complaint Admit Date EOSINOPHILIC ESOPHAGITIS February 15, 2025 1:27pm Reason for Visit Admit Date Eosinophilic esophagitis February 15, 2025 1:27pm Eosinophilic esophagitis April 11, 2025 10:09am Additional Source Comments Reason for Visit (unrecogniz ed section and content) Reason Comments left great toe pain left great toe at na il bed red and swollen. x2 weeks. Has been on antibiotics with no relief. Reason Comments right foot issues since part ial amputation in the s started w/ issue 2 months fatigued tendons and pain distal end Reason Comments Pneumonia Here 10 days ago for pneumonia. Completed antibiotic treatment and steroids. Feeling bad again the past 2 day. Reason Comments ED Follow-up Status Reason Specialty Diagnoses / Procedures Referred By Contact Referred To Contact Closed Specialty Services Required/Patien t's Best Interest General Surgery Diagnoses Dysphagia, unspecified type Sean Domínguez DO [address] [place] [address] Deep Stapleton MD [address] [place] [id number] Status Reason Specialty Diagnoses / Procedures Re ferred By Contact Referred To Contact Diagnoses Pharyngoesophageal dysphagia Heartburn Gaseous regurgitation Pharyngoesophageal dysphagia [R13.14] Heartburn [R12] Gaseous regurgitation [R14.2] Procedures [place] ESOPHAGEAL MOTILITY STUDY, MANOMETRY [place] ESOPHAGOGASTRODUODENOSCOPY TRANSORAL DIAGNOSTIC [place] GERD TST W/ MUCOS PH ELECTROD Deep Stapleton MD [address] [place] [id number] Reason Comments Follow-up EGD, khan and manom etry Reason Comments Covid-19 Screening sore throat, fatigue , muscle aches x 1 day Reason Comments Fatigue symptoms x3 days Fever Nausea Reason Comments Trouble swallowing Reason Comments Chest Pain Cough Reason Comments Pneumonia cough x 4 weeks and wheezy. dx pneumonia yesterday. Reason Comments Back Pain lower mid back pain for 2-3 weeks. NKI Reason Comments Other States he has piece of german sausage stuck in throat x40 minutes, believes he vomited/coughed most of it out but still feels some remains. Speaking and breathing without difficulty. Reason Comments Follow-up Dysphagia, EOE Reason Onset Date Comments dupixent prior auth 10/08/2022 Reason Comments Ear Pain Left ear has some dr bower and sagar hear. Started yesterday evening Reason Comments Abdominal Pain Patient c/o right lo wer stomach pain, vomiting. Patient states symptoms started last night around 8pm last night. Reason Comments Abdominal Pain [facility] a [facility] abdominal pain that started intermittently yesterday and became constant last night. The patient stated nausea with pain yesterday and has subsided since last night. Specialty Diagnoses / Procedures Referred By Pavan french Referred To Contact [facility] Referral ID Status Reason Start Date Expiration Date Visits Re quested Visits Authorized [id number] 1 Reason Comments Gap Closure (Health Maintenance) Tetanus : Every 10yrs Never doneCOVID-19 Vaccine(1) Never doneDepression Screening (PHQ-2/9) Never doneHIV Screening Never doneHepatitis C Screening Never doneGAD-7 Screening Never doneSequential Influenza Vaccine(1) Never doneWellness Visit due on 06/25/2023Lipid Panel due on 06/25/2023 Reason Comments Urinary Frequency Reason Comments 1 month med check (unrecognized sect ion and content) No Status Records FoundNo Status Records FoundNo Status Records FoundNo Status Records FoundNo Status Records FoundNo Status Records FoundNo Status Records FoundNo Status Records FoundNo Status Records FoundNo Status Records FoundNo Status Records FoundNo Status Records FoundNo Status Records Found INFORMATION SOURCE (unrecogn ized section and content) DATE CREATED AUTHOR 01/27/2019 [facility] DATE CREATED AUTHOR AUTHOR'S ORGANIZ ATION 08/12/2019 [facility] DATE CREATED AUTHOR AUTHOR'S ORGANIZ ATION 08/13/2019 [facility] DATE CREATED AUTHOR AUTHOR'S ORGANIZ ATION 02/02/2020 [facility] DATE CREATED AUTHOR AUTHOR'S ORGANIZ ATION 02/03/2020 [facility] DATE CREATED AUTHOR AUTHOR'S ORGANIZ ATION 08/02/2020 [facility] DATE CREATED AUTHOR AUTHOR'S ORGANIZ ATION 02/28/2023 [facility] DATE CREATED AUTHOR AUTHOR'S ORGANIZ ATION 05/17/2023 [facility] DATE CREATED AUTHOR AUTHOR'S ORGANIZ ATION 05/17/2023 [facility] DATE CREATED AUTHOR AUTHOR'S ORGANIZ ATION 09/18/2024 [facility] DATE CREATED AUTHOR AUTHOR'S ORGANIZ ATION 02/02/2025 [facility] DATE CREATED AUTHOR AUTHOR'S ORGANIZ ATION 02/05/2025 [facility] DATE CREATED AUTHOR AUTHOR'S ORGANIZ ATION 04/10/2025 [facility] Deep Stapleton MD - 01/25/2020 8:03 AM EDTMartDeep soto MD - 01/25/2020 8:02 AM EDT H&P Notes (unrecognized sect ion and content) INTERVAL HISTORY AND PHYSICAL Patient Name: Shane Lenz Admit Date: MR #: [id number] : 1980 The H&P has been reviewed and the patient has been examined. I concur with the findings of the H&P. There are no significant changes. It is appropriate to proceed with the planned procedure. Deep Stapleton MD 01/25/2020 8:03 AM Diagnoses Codes Pharyngoesophageal dysphagia - Primary ICD-10-CM: R13.14 ICD-9-CM: 787.24 Heartburn ICD-10-CM: R12 ICD-9-CM: 787.1 Gaseous regurgitation ICD-10-CM: R14.2 ICD-9-CM: 787.3 Progress Notes Expand All Collapse All [facility] [address] (11) [facility] [address] [facility] [id number] Patient Name: Shane Lenz Age: 39 y.o. Gender: male Referring Physician: Sean Domínguez, No chief complaint on file. HPI: PROCEDURALIST ATTESTATION DURING COVID PANDEMIC [] Threat to patient's life if the procedure is not performed. [] Threat of permanent dysfunction of an extremity or organ system. [] Risk of metastasis or progression of staging. [] Risk of rapidly worsening to severe symptoms (time-sensitivity). [x] This procedure is an outpatient procedure with an expected discharge the same day as the procedure. While we practice appropriate precautions consistent with prevailing medical standards, any contact with any person in any setting at this time presents a risk of transmission and contraction of COVID-19. The patient was informed of this wishes to proceed with the procedure. The patient was informed that they will need COVID-19 testing within 72 hours of the procedure. Patient Primary Symptoms are: heartburn, dysphagia and regurgitation Onset of Symptoms: Patient presents with complaints of dysphagia for at least 8 years. He states over the years the dysphagia has increased. The dysphagia is worse with meats and breads. He has to drink fluids with every meal or the food will get stuck and he will have to being the food back up. He does endorse occasional heartburn and regurgitation mostly when he drink alcohol. He has never had a EGD. He has never been on any heartburn medications. Frequency of Symptoms: Daily with every meals Heartburn and regurgitation on occasion Severity of Symptoms: increasing in severity Sleep Disruption: no Aggravating Factors: alcohol Alleviating Factors: Denies Medications Tried: Denies Past Medical History: Diagnosis Date Known health problems: none Past Surgical History: Procedure Laterality Date FOOT AMPUTATION partial right foot amputation Allergies Allergen Reactions Sulfa (Sulfonamide Antibiotics) Allergy test confirmed as a child Current Medications No current outpatient medications on file. No current facility-administered medications for this visit. Social History Tobacco Use Smoking status: Never Smoker Smokeless tobacco: Never Used Substance Use Topics Alcohol use: Yes Frequency: Monthly or less Drinks per session: 1 or 2 Binge frequency: Less than monthly Comment: occasional Drug use: No Family History Problem Relation Age of Onset No Known Problems Mother No Known Problems Father No Known Problems Sister No Known Problems Brother REVIEW OF SYSTEMS Pertinent positives are listed in HPI, PMSH, SH, ALL, otherwise all systems reviewed below are negative. The following systems were reviewed: [x]? Const (fevers, chills, wt. loss, fatigue) [x]? CV (HTN, CP, SAMUELS, edema, DVT) [x]? Resp (SOB, pleurisy, asthma, apnea) [x]? GI (N, V, D, C, M, abd pain, appetite) [x]? Musc (back pain, joint stiffness, gout) [x]? Neuro (seizures, syncope, paralysis) [x]? Psych (depression, anxiety) [x]? Endo (hot/cold intol, polyuria[DM]) [x]? Hem/Lymph (Anemia, LA, bleeding) [x]? Allerg/Immun (seasonal, immuniz) [x]? Eyes (diplopia, cataracts) [x]? ENT/mouth (dysphagia, epistaxis) [x]? (dysuria, hematuria) [x]? Skin/Breast (moles, rash, lumps, nipple changes) Pertinent Positives: See HPI Pertinent Negatives: See HPI Physical Exam: BP 113/69 Pulse 94 Temp 98.5 F (36.9 C) (Oral) Ht 5' 9" Wt 77.6 kg (171 lb) SpO2 95% BMI 25.25 kg/m Body mass index is 25.25 kg/m . Constitutional: Well nourished, well developed person in no acute distress. Ambulates without difficulty. Head: Atraumatic and normocephalic. Face: Within normal limits. Eyes: Pupils equal, round, reactive to light. Sclera white. Mouth: Moist mucous membranes, normal dentation. Neck: supple, trachea midline,no masses, no incisions. Lymphatic: No cervical or inguinal lymphadenopathy. Heart: Regular rate and rhythm. Lungs: Clear to auscultation. Abdomen: Soft, non-distended, non-tender, no heptasplenomegaly, no umbilica, incisional, femoral, or inguinal hernias. Pelvis: Stable, non-tender. Skin: Warm, moist, normal skin turgor. Peripheral Vascular: Palapable carotid, radial, and femoral pulses, no peripheral edema. Neuropsych: Alert and oriented, judgement and insight intact. Normal Gait. Assessment: 1. Pharyngoesophageal dysphagia Ambulatory referral to General Surgery Case Request Operating Room: ESOPHAGOGASTRODUODENOSCOPY WITH POSSIBLE BIOPSIES AND/OR POLYPECTOMY AND/OR OTHER COAGULATION TEATMENT AND/OR POSSIBLE INJECTION SCLEROSIS AND/OR POSSIBLE DILATATION (STRETCHING) AND/OR VARICEAL LIGATION (BANDING), WIT... 2. Heartburn Case Request Operating Room: ESOPHAGOGASTRODUODENOSCOPY WITH POSSIBLE BIOPSIES AND/OR POLYPECTOMY AND/OR OTHER COAGULATION TEATMENT AND/OR POSSIBLE INJECTION SCLEROSIS AND/OR POSSIBLE DILATATION (STRETCHING) AND/OR VARICEAL LIGATION (BANDING), WIT... 3. Gaseous regurgitation Case Request Operating Room: ESOPHAGOGASTRODUODENOSCOPY WITH POSSIBLE BIOPSIES AND/OR POLYPECTOMY AND/OR OTHER COAGULATION TEATMENT AND/OR POSSIBLE INJECTION SCLEROSIS AND/OR POSSIBLE DILATATION (STRETCHING) AND/OR VARICEAL LIGATION (BANDING), WIT... Orders Placed This Encounter Procedures Case Request Operating Room: ESOPHAGOGASTRODUODENOSCOPY WITH POSSIBLE BIOPSIES AND/OR POLYPECTOMY AND/OR OTHER COAGULATION TEATMENT AND/OR POSSIBLE INJECTION SCLEROSIS AND/OR POSSIBLE DILATATION (STRETCHING) AND/OR VARICEAL LIGATION (BANDING), WIT... Plan: EGD with Biopsy, Khan pH study with Interpretation, High resolution Manometry with Impedance and Interpretation Deep Stapleton MD FACS documented in this encounter Flora Berg RN - 01/25/2020 10:09 AM Flora Herzog RN - 01/25/2020 10:02 AM Flora Herzog RN - 01/25/2020 9:41 AM Flora Herzog RN - 01/25/2020 9:32 AM EDT Nursing Notes (unrecognized section and content) DC'd, A&O, ambulatory. Escorted out of department by RN per wheelchair. Verbal and written instructions given to pt and family/escort, verbalizes understanding. Dr. Stapleton at [facility] reviewing findings. Pts at [facility]. Khan placed. VS monitoring and sedation are done by Anesthesia/ADOPTION SOCIAL WORKER/CAA. Pt is accompanied by Yarely Pt states that doctor can speak to family after procedure. documented in this encounter Elsy Grimaldo RN - 08/12/2019 1:57 PM Elsy Allen RN - 08/12/2019 1:03 PM Kalpesh Charles - 08/12/2019 1:03 PM Jose Cutler MD - 08/12/2019 12:55 PM EST ED Notes (unrecognized secti on and content) Pt ambulatory to restroom. Pt and family updated on plan of care. PT TO CT VIA CART Bed: 34 Expected date: Expected time: Means of arrival: Comments: 2nd patient HPI Chief Complaint shortness of breath cough Patient Stated Complaint Patient is a 38-year-old white male developed pneumonia 2 rounds of different antibiotics patient currently on antibiotics steroids not having any improvement respiratory distress though is throughout states he started feeling ill evaluation management care patient denies any nausea vomiting rash chest pain or chest pressure of any type patient all other symptoms reviewed are negative Allergy List : Reviewed-and agree with nurses notes Home Medication List : Reviewed-and agree with nurses notes Medical and Surgical History Active Problem List: Reviewed-and agree with nurses notes Family History Reviewed- see -nurses notes Vital Signs and Body Measurements Reviewed- see -nurses notes ROS At Least 10 Organ Systems Reviewed and Negative Except as Indicated in HPI Physical Examination: All findings normal unless otherwise noted Constitutional Alert & orientated x 3, No Acute Distress Well Nourished Head and Face :Normocephalic and Atraumatic Eye Extraocular Movement Intact Pupils Equally Round Reactive to light Ear Nose Throat Mucous Membranes Moist No Injury or Deformity Oropharynx Clear Cardiovascular Capillary Refill Less than 2 Seconds No Peripheral Edema Normal S1, S2 Pulses Normal Regular Rate and Rhythm Respiratory Clear to Auscultation Bilaterally Normal Rate and Effort no Respiratory Distress or Stridor bilateral wheezing was noted on the right side with good air movement heard throughout Gastrointestinal Abdomen Soft Bowel Sounds Present Not Tender Distended Generalized Tenderness. No Guarding Rebound Rigid Genitourinary No Lesion Normal External Genitalia Musculoskeletal Distal Pulses Normal No Injury or Deformity No Calf Tendernes, no Paraspinous Tenderness or spinal ttp Cervical Lumbar Thoracic Neurologic 5/5 Strength throughout No Focal Deficits Sensation Intact or Slurred Speech Skin Dry No Lesion No Rash Normal Color Warm no Cyanosis Diaphoretic Lymph No Lymphadenopathy or Lymphadenopathy Lymphedema Psychiatric Appropriate Affect Cooperative not Depressed Manic or having Suicidal Thoughts Laboratory Results-reviewed see results Data Reviewed EKG interpretation note normal sinus rhythm normal rate normal axis heart rate 92 Medical Decision Making and Diagnosis Medical Decision Making Evaluate labs and imaging ordered reviewed imaging reviewed by myself radiologist patient treated symptomatically with improvement all questions addressed and answered results discussed at length patient CT and x-ray negative for any acute findings lab also negative for acute findings patient treated with steroids breathing treatments 1 to 2 days return here at anytime for new worse or persistent symptoms Differential Diagnosis Considered Final Diagnostic Impression #1 clinical pneumonia 2 shortness breath Disposition Discharge Billing Evaluation and Management Total Critical Care Time 37 minutes Jose Kenney MD 08/12/19 1257 Jose Kenney MD 08/12/19 1402 SIRS ALERT TRIPPED BY ADDITION OF PT WBC COUNT. SIRS ALERT CALLED OVERHEAD. DR KENNEY NOTIFIED, TO PUT IN ORDERS PT ARRIVES TO ER VIA EMS [facility] 4- 5 WEEKS AGO HE STARTED TO HAVE A COUGH. 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 PT STATES HE WAS DIAGNOSED WITH PNEUMONIA WHILE THERE, AND STARTED AN ABX AND PREDNISONE. PT WAS THEN SEEN AT THE CLINIC HERE ON [address] UPON HIS RETURN AND WAS GIVEN AN ADDITIONAL SUPPLY OF PREDNISONE. PT STATES HE RETURNED TO THE CLINIC TODAY BECAUSE HE FINISHED HIS ABX AND DOESN'T SEEM TO BE GETTING BETTER. PT C/O CHEST PRESSURE FOR AROUND 10 DAYS AND STATED "IT FEELS LIKE THERE IS A WEIGHT ON MY CHEST AND ITS HARDER TO BREATHE". PT IS IN NO DISTRESS, ON ROOM AIR. Bed: 33 Expected date: Expected time: Means of arrival: Comments: Paton: 38M chest congestion sent by documented in this encounter Care Teams (unrecognized sec tion and content) Catering Truck Operator Relationship Specialty Start Date End Date Sean Domínguez DO PCP - General Family Medicine 08/02/18 Sean Domínguez, DO [address] [place] [address] PCP - ROSY Attributed Provider - [employer] 03/18/21 Catering Truck Operator Relationship Specialty Start Date End Date Sean Domínguez DO [address] [place] [address] PCP - General Family Medicine 10/22/21 Catering Truck Operator Relationship Specialty Start Date End Date Sean Domínguez DO PCP - General Family Medicine 08/02/18 Sean Domínguez DO [address] [place] [address] PCP - ROSY Attributed Provider - [employer] 09/19/21 09/18/50 Catering Truck Operator Relationship Specialty Start Date End Date Sean Domínguez DO PCP - General Family Medicine 08/02/18 Sean Domínguez, DO [address] [place] [address] PCP - ROSY Attributed Provider - [employer] 09/19/21 09/18/50 Catering Truck Operator Relationship Specialty Start Date End Date Sean Domínguez DO [address] [place] [address] PCP - General Family Medicine 10/22/21 Catering Truck Operator Relationship Specialty Start Date End Date Sean Domínguez, DO PCP - General Family Medicine 08/02/18 CatrachitaSean, DO [address] [place] [address] PCP - ROSY Attributed Provider - [employer] 09/19/21 09/18/50 Catering Truck Operator Relationship Specialty Start Date End Date Sean Domínguez, DO PCP - General Family Medicine 08/02/18 Sean Domínguez, DO [address] [place] [address] PCP - ROSY Attributed Provider - [employer] 09/19/21 09/18/50 Catering Truck Operator Relationship Specialty Start Date End Date Catrachita Sean, DO [address] [place] [address] PCP - General Family Medicine 10/22/21 Catering Truck Operator Relationship Specialty Start Date End Date Sean Domínguez DO [address] [place] [address] PCP - General Family Medicine 10/22/21 Catering Truck Operator Relationship Specialty Start Date End Date Sean Domínguez, DO [address] [place] [address] PCP - General Family Medicine 10/22/21 Catering Truck Operator Relationship Specialty Start Date End Date Sean Domínguez DO PCP - General Family Medicine 08/02/18 Sean Domínguez DO [address] [place] [address] PCP - ROSY Attributed Provider - [employer] 09/19/21 09/18/50 Catering Truck Operator Relationship Specialty Start Date End Date Sean Domínguez DO PCP - General Family Medicine 08/02/18 Sean Domínguez DO [address] [place] [address] PCP - ROSY Attributed Provider - [employer] 09/19/21 09/18/50 Catering Truck Operator Relationship Specialty Start Date End Date Sean Domínguez DO [address] [place] [address] PCP - General 05/16/23 Catering Truck Operator Relationship Specialty Start Date End Date Sean Domínguez DO [address] [place] [address] PCP - General 05/16/23 Catering Truck Operator Relationship Specialty Start Date End Date Sean Domínguez DO PCP - General Family Medicine 08/02/18 Catering Truck Operator Relationship Specialty Start Date End Date Sean Domínguez DO PCP - General Family Medicine 08/02/18 Team Status: Inactive Member Role Status Dates EBONY Pfeiffer Attending Provider Active Start: February 15, 2025 End: February 15, 2025 Team Status: Active Member Role Status Dates Dr. Sean Domínguez MD Primary Care Provider Active Team Status: Inactive Member Role Status Dates Dr. Sean Domínguez MD Primary Care Provider Active Start: February 15, 2025 End: February 15, 2025 EBONY Pfeiffer Attending Provider Active Start: February 15, 2025 End: February 15, 2025 EBONY Pfeiffer Referring Provider Active Start: February 15, 2025 End: February 15, 2025 Catering Truck Operator Relationship Specialty Start Date End Date Sean Domínguez DO PCP - [facility] Medicine 08/02/18 Team Status: Active Member Role/Relationship Status Dates Dr. Sean Domínguez MD Primary Care Provider Active Team Status: Inactive Member Role/Relationship Status Dates EBONY Pfeiffer Attending Provider Active Start: February 15, 2025 End: February 15, 2025 Team Status: Inactive Member Role/Relationship Status Dates Dr. Sean Domínguez MD Primary Care Provider Active Start: February 15, 2025 End: February 15, 2025 EBONY Pfeiffer Attending Provider Active Start: February 15, 2025 End: February 15, 2025 EBONY Pfeiffer Referring Provider Active Start: February 15, 2025 End: February 15, 2025 Team Status: Inactive Member Role/Relationship Status Dates Dr. Sean Domínguez MD Primary Care Provider Active Start: April 11, 2025 End: April 11, 2025 Dr. Sean Domínguez MD Referring Provider Active Start: April 11, 2025 End: April 11, 2025 Dr. Melquiades Ng DO Attending Provider Active Start: April 11, 2025 End: April 11, 2025 Team Status: Active Member Role/Relationship Status Dates Dr. Sean Domínguez MD Primary Care Provider Active Start: April 11, 2025 Dr. Sean Domínguez MD Referring Provider Active Start: April 11, 2025 Dr. Melquiades Ng DO Attending Provider Active Start: April 11, 2025 Dr. Melquiades Ng DO Other Provider Active St art: April 11, 2025 Scheduled Active and Recently Administ elisha Medications (unrecognized section and content) Medication Order 01/29/2023 01/30/2023 01/31/2023 cefoTETAN (CEFOTAN) 1 g in sodium chloride 0.9% (MB PLUS) 50 mL (total volume) IVPB (COMPLETED) 1 g, Intravenous, Administer over 30 Minutes, ONCE, 1 dose, On Tue01/31/23 at 1200 1155 ($$New Bag$$ - Provider: Susanne Richards RN)1304 (Stopped - Provider: Susanne Richards RN) iohexol (OMNIPAQUE) 350 MG/ML injection 75 mL (COMPLETED) 75 mL, Intravenous, ONCE, 1 dose, On Tue01/31/23 at 1115, Extravasation Risk, Radiology Procedure 1043 (Given - Radiol ogy - Provider: Olivia Sifuentes) Ondansetron 4mg/2ml (ZOFRAN) injection 4 mg 4 mg, Intravenous, ONCE, 1 dose, On Tue01/31/23 at 1015 1019 (Hold - Provide r: Susanne Richards RN - Reason: Patient/family refused)2147 (NOV Hold - Provider: Automatic Transfer - Reason: Transfer to a Procedural area) oxyCODONE-acetaminophen (PERCOCET) 5-325 MG per tablet 1 Each Oral, SEE ADMIN INSTRUCTIONS, Starting on Tue01/31/23 at 2252, Until Tue02/01/23 at 0122, Provide patient with 4 pack of Acetaminophen/Oxycodone 325-5 mg, take 1 or 2 tabs by mouth every 4 hours as needed for pain. Nursing to document as GIVEN on the NOV and include comment of patient receipt of the 4 pack. 2310 (Given - Provid er: Glenis Guy RN - Comment: Jackie PRICE went over discharge instrucitons at this time with and pt. both verbalized understanding denies any further education. Gave 4 pack percocet to at this time. place pain medications in purse. Denies any further needs or education. Pt will take as prescibed at home.) Sodium chloride 0.9% IV solution 75 mL (COMPLETED) 75 mL, Intravenous, ONCE, 1 dose, On Tue01/31/23 at 1115, Radiology Procedure 1043 ($$New Bag$$ - Provider: Olivia Sifuentes)1221 (Stopped - Provider: Susanne Richards RN) Continuous Medication Order 01/29/2023 01/30/2023 01/31/2023 Sodium chloride 0.9% IV solution Intravenous, at 125 mL/hr, CONTINUOUS, Starting on Tue01/31/23 at 1130, Until Tue02/01/23 at 0122 1156 ($$New Bag$$ - Provider: Susanne Richards RN)2135 (Paused - Provider: Hi Dean STORY EDITOR-ADOPTION SOCIAL WORKER - Comment: Switch to gravity)2136 (Restarted - Provider: Hi Dean APRN-ADOPTION SOCIAL WORKER)2146 (NOV Hold - Provider: Automatic Transfer - Reason: Transfer to a Procedural area)2208 ($$New Bag$$ - Provider: Hi Dean STORY EDITOR-ADOPTION SOCIAL WORKER)222 (Anesthesia Volume Adjustment - Provider: Hi Dean STORY EDITOR-ADOPTION SOCIAL WORKER) PRN Medication Order 01/29/2023 01/30/2023 01/31/2023 Bupivacaine (PF) (MARCAINE) 0.25 % injection (CANCELED) NEEDED, Starting on Tue01/31/23 at 2153, Until Tue01/31/23 at 2236, Intra-op/Intra-Proc 2152 (Given - Provid er: Nav Lara, - Comment: given to sterile field) Morphine (PF) injection 2 mg 2 mg, Intravenous, EVERY 2 HOURS NEEDED, Starting on Tue01/31/23 at 1215, Until Tue02/01/23 at 0122, Severe Pain, Moderate Pain 1713 (Given - Provid er: Susanne Richards RN)2146 (MAR Hold - Provider: Automatic Transfer - Reason: Transfer to a Procedural area) Ondansetron 4mg/2ml (ZOFRAN) injection 4 mg 4 mg, Intravenous, EVERY 4 HOURS NEEDED, Starting on Tue01/31/23 at 1215, Until Tue02/01/23 at 0122, Nausea / Vomiting 1254 (Given - Provid er: Susanne Richards RN)1712 (Given - Provider: Susanne Richards RN)2146 (MAR Hold - Provider: Automatic Transfer - Reason: Transfer to a Procedural area) Sodium chloride 0.9 % irrigation (CANCELED) NEEDED, Starting on Tue01/31/23 at 2153, Until Tue01/31/23 at 2236, Intra-op/Intra-Proc 2152 (Given - Provid er: Nav Lara, DO - Comment: given to sterile field) Goals (unrecognized section and content) Goals may be documented in a n alternate sectionGoals may be documented in an alternate section FOR RECORDS PERTAINING TO PATIENTS WHO ARE OR HAVE BEEN ENROLLED IN A CHEMICAL DEPENDENCY/SUBSTANCEABUSE PROGRAM, SOME INFORMATION MAY BE OMITTED. This clinical summary was aggregated from multiple sources. Caution should be exercised in using it in the provision of clinical care. This summary normalizes information from multiple sources, and as a consequence, information in this document may materially change the coding, format and clinical context of patient data. In addition, data may be omitted in some cases. CLINICAL DECISIONS SHOULD BE BASED ON THE PRIMARY CLINICAL RECORDS. [facility]. provides no warranty or guarantee of the accuracy or completeness of information in this document.
== END 2025-04-11 12:53 | disposition home or self-care (01) ==
LOC: EN 10:14 → AC 10:15
PROVIDERS: PCP Family Medicine; Referring Provider Family Medicine; Visit Provider Internal Medicine Gastroenterology
PROC: 0DJ08ZZ Inspection of Upper Intestinal Tract, Via Natural or Artificial Opening Endoscopic (ICD-10-PCS; CPT 43235; principal; 2025-04-11 11:25)
DX: K22.2 Esophageal obstruction (principal); R13.10 Dysphagia, unspecified; K29.80 Duodenitis without bleeding; K20.0 Eosinophilic esophagitis
CPT/HCPCS: 44361; 88305; C1769; J2405